=== PATIENT | female | born 1975 | race Caucasian/White ===

== ENCOUNTER 2019-10-11 15:11 | Emergency (ER) | payer OTHER ==
[2019-10-11 15:19] VITALS: TEMP 98.7
[2019-10-11 16:31] LABS: Basophils # (A) 0.1 k/uL (0-0.2); Basophils % (A) 1 %; Eosinophils # (A) 0.2 k/uL (0-0.7); Eosinophils % (A) 2 %; HCT 48.9 % (34.0-46.0); Lymphocytes # (A) 2.5 k/uL (1.0-4.8); Lymphocytes % (A) 29 %; MCH 32.9 pg (25.0-35.0); MCHC 32.6 g/dL (31.0-37.0); MCV 100.7 fL (80.0-100.0); Monocytes # (A) 0.3 k/uL (0-1.0); Monocytes % (A) 4 %; Neutrophils # (A) 5.4 k/uL (1.3-7.7); Neutrophils % (A) 62 %; Platelet Count 260 k/uL (150-450); RBC 4.86 m/uL (3.80-5.40); RDW 13.7 % (11.5-15.5); WBC 8.6 k/uL (3.8-10.6)
[2019-10-11 16:41] LABS: ALT 24 U/L (4-34); AST 21 U/L (14-36); African American GFR (CKD) >90 (>60 ml/min/1.73 sqM); Albumin 4.6 g/dL (3.5-5.0); Alkaline Phosphatase 102 U/L (38-126); Anion Gap 7 mmol/L; Blood Urea Nitrogen 13 mg/dL (7-17); Calcium 9.6 mg/dL (8.4-10.2); Carbon Dioxide 24 mmol/L (22-30); Chloride 107 mmol/L (98-107); Glucose 88 mg/dL (74-99); Magnesium 2.2 mg/dL (1.6-2.3); Non-African American GFR(CKD) >90 (>60 ml/min/1.73 sqM); Potassium 4.2 mmol/L (3.5-5.1); Sodium 138 mmol/L (137-145); Total Bilirubin 0.3 mg/dL (0.2-1.3); Total Protein 7.9 g/dL (6.3-8.2)
--- NOTE | 2019-10-11 16:44 | XR ---
EXAMINATION TYPE: XR chest 2V DATE OF EXAM: 10/11/2019 COMPARISON: 02/26/2016 HISTORY: 44 year-old female shortness of breath TECHNIQUE: PA and lateral views FINDINGS: Heart normal in size. Aorta and pulmonary vasculature are within normal limits. Some strandy atelecta sis in the lower lungs. No consolidation or pleural effusion otherwise seen. IMPRESSION: Some strandy lower lung atelectasis. Otherwise, no acute cardiopulmonary process.
[2019-10-11 16:46] LABS: D-Dimer 0.22 mg/L FEU (<0.60); INR 0.9 (<1.2); Partial Thromboplastin Time 24.9 sec (22.0-30.0); Prothrombin Time 9.9 sec (9.0-12.0)
--- NOTE | 2019-10-11 17:45 | ED ---
URI HPI - General Chief Complaint: Upper Respiratory Infection Stated Complaint: chest pain, cough Time Seen by Provider: 10/11/19 16:09 Source: patient Mode of arrival: ambulatory Limitations: no limitations - History of Present Illness Initial Comments: Patient is a 44-year-old female, with history of chronic bronchitis, every day smoker, presenting to the emergency Department with complaints of a cough and burning in her chest 3 weeks. Patient was seen by urgent care about 3 weeks ago and was given Augmentin, cough medicine. Patient states she finished this medication and symptoms were slightly better. She had a conference call with her PCP who switched her antibiotic to Levaquin. Patient states she only took 1-2 days of this and did not like the side effects, so she stopped taking it. She was then prescribed 2 inhalers to try. Patient states her symptoms have started to improve with these inhalers but she still feels short of breath and burning in her chest, and is concerned that she might have pneumonia. Patient denies any chest pains. She states that her tightness is when she coughs and she feels burning in her chest. Patient denies any fever, chills, abdominal pain, nausea, vomiting, lightheadedness. She has no other complaints at this time. Upon arrival to the ER, her vital signs are stable. - Related Data Home Medications Medication Instructions Recorded Confirmed Bismuth Subsalicylate 262 mg PO DAILY PRN 11/23/15 02/26/16 [Pepto-Bismol] Previous Rx's Medication Instructions Recorded Albuterol Inhaler (Bulk) [Ventolin 1 - 2 puff INHALATION Q4-6H PRN #1 02/26/16 Hfa Inhaler (Bulk)] inhaler Doxycycline Monohydrate [Monodox] 100 mg PO Q12HR 5 Days #10 cap 10/11/19 methylPREDNISolone [Medrol Dose 4 mg PO DIRECTED #1 pack 10/11/19 Pack] Allergies Allergy/AdvReac Type Severity Reaction Status Date / Time prednisone Allergy Swelling Verified 02/26/16 20:13 codeine AdvReac migraines Verified 02/26/16 20:13 tramadol HCl [From Ultram] AdvReac migraines Verified 02/26/16 20:13 Review of Systems ROS Statement: Those systems with pertinent positive or pertinent negative responses have been documented in the HPI. ROS Other: All systems not noted in ROS Statement are negative. Past Medical History Past Medical History: GERD/Reflux, Skin Disorder Additional Past Medical History / Comment(s): Psoriasis; endometriosis History of Any Multi-Drug Resistant Organisms: None Reported Past Surgical History: Appendectomy, Section, Hysterectomy Additional Past Surgical History / Comment(s): Surgery r/t endometriosis Additional Past Anesthesia/Blood Transfusion Reaction / Comment(s): low b/p during one surgery.no hx of blood transfusion Past Psychological History: No Psychological Hx Reported Smoking Status: Current every day smoker Past Alcohol Use History: Occasional Past Drug Use History: None Reported - Past Family History Mother Family Medical History: Hypertension Additional Family Medical History / Comment(s): brain aneurysm Father Additional Family Medical History / Comment(s): suicide General Exam - General Exam Comments Initial Comments: GENERAL: Well-appearing, well-nourished and in no acute distress. HEAD: Atraumatic, normocephalic. EYES: Pupils equal round and reactive to light, extraocular movements intact, sclera anicteric, conjunctiva are normal. ENT: TMs normal, nares patent, oropharynx clear without exudates. Moist mucous membranes. NECK: Normal range of motion, supple without lymphadenopathy or JVD. LUNGS: Breath sounds clear to auscultation bilaterally and equal. No wheezes rales or rhonchi. HEART: Regular rate and rhythm without murmurs, rubs or gallops. ABDOMEN: Soft, nontender, normoactive bowel sounds. No guarding, no rebound. No masses appreciated. : Deferred EXTREMITIES: Normal range of motion, no pitting or edema. No clubbing or cyanosis. NEUROLOGICAL: Normal speech, normal gait. PSYCH: Normal mood, normal affect. SKIN: Warm, Dry, normal turgor, no rashes or lesions noted. Limitations: no limitations Course Vital Signs 10/11/19 10/11/19 10/11/19 15:14 16:28 17:56 Temperature 98.7 F Pulse Rate 58 L 79 Respiratory 18 16 18 Rate Blood Pressure 147/93 126/79 O2 Sat by Pulse 97 100 Oximetry Medical Decision Making - Medical Decision Making Patient is a 44-year-old female with history of chronic bronchitis presenting with a cough and chest discomfort for 3 weeks. Patient was treated with Augmentin and a few days of Levaquin before she stopped taking it due to side effects. She is also currently on inhalers. Her vital signs are stable upon arrival. Her exam is unremarkable. Her chest x-ray reveals some mild atelectasis, no other abnormal findings. Her lab work is unremarkable. I discussed with patient this is most likely an exacerbation of her bronchitis. Patient states she is ALLERGIC to prednisone as well as azithromycin. Patient will be given Medrol Dosepak as well as doxycycline. She is in agreement with this plan of care. She'll continue with her already prescribed inhalers. She will follow-up with her PCP if symptoms persist. Patient is in agreement with this plan of care. Case discussed with Dr. Mandujano. - Lab Data Result diagrams: 10/11/19 16:15 10/11/19 16:15 Lab Results 10/11/19 10/11/19 10/11/19 Range/Units 16:15 16:15 16:15 WBC 8.6 (3.8-10.6) k/uL RBC 4.86 (3.80-5.40) m/uL Hgb 16.0 (11.4-16.0) gm/dL Hct 48.9 H (34.0-46.0) % MCV 100.7 H (80.0-100.0) fL MCH 32.9 (25.0-35.0) pg MCHC 32.6 (31.0-37.0) g/dL RDW 13.7 (11.5-15.5) % Plt Count 260 (150-450) k/uL Neutrophils % 62 % Lymphocytes % 29 % Monocytes % 4 % Eosinophils % 2 % Basophils % 1 % Neutrophils # 5.4 (1.3-7.7) k/uL Lymphocytes # 2.5 (1.0-4.8) k/uL Monocytes # 0.3 (0-1.0) k/uL Eosinophils # 0.2 (0-0.7) k/uL Basophils # 0.1 (0-0.2) k/uL PT 9.9 (9.0-12.0) sec INR 0.9 (<1.2) APTT 24.9 (22.0-30.0) sec D-Dimer 0.22 (<0.60) mg/L FEU Sodium 138 (137-145) mmol/L Potassium 4.2 (3.5-5.1) mmol/L Chloride 107 (98-107) mmol/L Carbon Dioxide 24 (22-30) mmol/L Anion Gap 7 mmol/L BUN 13 (7-17) mg/dL Creatinine 0.69 (0.52-1.04) mg/dL Est GFR (CKD-EPI)AfAm >90 (>60 ml/min/1.73 sqM) Est GFR (CKD-EPI)NonAf >90 (>60 ml/min/1.73 sqM) Glucose 88 (74-99) mg/dL Plasma Lactic Acid Donnell (0.7-2.0) mmol/L Calcium 9.6 (8.4-10.2) mg/dL Magnesium 2.2 (1.6-2.3) mg/dL Total Bilirubin 0.3 (0.2-1.3) mg/dL AST 21 (14-36) U/L ALT 24 (4-34) U/L Alkaline Phosphatase 102 (38-126) U/L Troponin I (0.000-0.034) ng/mL NT-Pro-B Natriuret Pep pg/mL Total Protein 7.9 (6.3-8.2) g/dL Albumin 4.6 (3.5-5.0) g/dL 10/11/19 10/11/19 10/11/19 Range/Units 16:15 16:15 16:15 WBC (3.8-10.6) k/uL RBC (3.80-5.40) m/uL Hgb (11.4-16.0) gm/dL Hct (34.0-46.0) % MCV (80.0-100.0) fL MCH (25.0-35.0) pg MCHC (31.0-37.0) g/dL RDW (11.5-15.5) % Plt Count (150-450) k/uL Neutrophils % % Lymphocytes % % Monocytes % % Eosinophils % % Basophils % % Neutrophils # (1.3-7.7) k/uL Lymphocytes # (1.0-4.8) k/uL Monocytes # (0-1.0) k/uL Eosinophils # (0-0.7) k/uL Basophils # (0-0.2) k/uL PT (9.0-12.0) sec INR (<1.2) APTT (22.0-30.0) sec D-Dimer (<0.60) mg/L FEU Sodium (137-145) mmol/L Potassium (3.5-5.1) mmol/L Chloride (98-107) mmol/L Carbon Dioxide (22-30) mmol/L Anion Gap mmol/L BUN (7-17) mg/dL Creatinine (0.52-1.04) mg/dL Est GFR (CKD-EPI)AfAm (>60 ml/min/1.73 sqM) Est GFR (CKD-EPI)NonAf (>60 ml/min/1.73 sqM) Glucose (74-99) mg/dL Plasma Lactic Acid Donnell 0.7 (0.7-2.0) mmol/L Calcium (8.4-10.2) mg/dL Magnesium (1.6-2.3) mg/dL Total Bilirubin (0.2-1.3) mg/dL AST (14-36) U/L ALT (4-34) U/L Alkaline Phosphatase (38-126) U/L Troponin I <0.012 (0.000-0.034) ng/mL NT-Pro-B Natriuret Pep 50 pg/mL Total Protein (6.3-8.2) g/dL Albumin (3.5-5.0) g/dL Disposition Clinical Impression: Chronic bronchitis with acute exacerbation Disposition: HOME SELF-CARE Condition: Stable Instructions (If sedation given, give patient instructions): Chronic Bronchitis (ED) Additional Instructions: Please return to the Emergency Department if symptoms worsen or any other concerns. Continue with already prescribed inhalers. Take antibiotic as prescribed. Take steroids as prescribed. Follow-up with PCP if symptoms persist. Prescriptions: methylPREDNISolone [Medrol Dose Pack] 4 mg PO DIRECTED #1 pack Doxycycline Monohydrate [Monodox] 100 mg PO Q12HR 5 Days #10 cap Is patient prescribed a controlled substance at d/c from ED?: No Referrals: Cem Espino MD [Primary Care Provider] - 1-2 days
[2019-10-11 17:57] VITALS: BP 126/79; PULSE 79; RESP 18
== END 2019-10-11 17:57 | disposition home or self-care (01) ==
LOC: EC 15:11
DX: J42 Unspecified chronic bronchitis (principal); J98.11 Atelectasis; F17.200 Nicotine dependence, unspecified, uncomplicated; Z79.899 Other long term (current) drug therapy; Z88.5 Allergy status to narcotic agent; Z88.8 Allergy status to other drugs, medicaments and biological substances; Z88.6 Allergy status to analgesic agent
CPT/HCPCS: 36415; 71046; 80053; 83605; 83735; 83880; 84484; 85025; 85379; 85610; 85730; 93005; 99285

== ENCOUNTER → 2019-12-06 | Outpatient (CLI) | payer OTHER ==
--- NOTE | 2019-12-06 10:57 | FL ---
EXAMINATION TYPE: FL UGI air w KUB DATE OF EXAM: 12/06/2019 COMPARISON: NONE HISTORY: 44-year-old female K21.9, gastroesophageal reflux disease without esophagitis. TECHNIQUE: A double contrast UGI study is performed. Total fluoroscopy time: 2.24 minutes Total images: 41 FINDINGS: Pr Internship image of the abdomen shows no gross abnormality. Moderate scattered stool. Lung bases are clear . No evidence for free intraperitoneal air. The esophagus shows normal motility and emptying into the stomach. No fixed narrowing are mucosal irr egularity seen. There is a tiny sliding hiatal hernia noted. Gastroesophageal reflux could not be elicited during the course of the exam. The stomach shows normal distensibility and peristalsis. There is moderate diffuse gastric fold thick ening. No evidence of any mass or ulcer disease. The duodenal bulb and sweep appear unremarkable. IMPRESSION: 1. Tiny sliding hiatal hernia. Gastroesophageal reflux could not be elicited during the course of the exam. However, note that this does not exclude its possibility in this patient. 2. Moderate diffuse gastric fold thickening suggests chronic gastritis. Direct visualization if indic ated which could also assess the esophagus for any secondary changes relating to long-standing gastro esophageal reflux disease.
== END | disposition home or self-care (01) ==
LOC: RADUSWWP 09:42
PROVIDERS: ATTEND Family Medicine
DX: K44.9 Diaphragmatic hernia without obstruction or gangrene (principal); K31.89 Other diseases of stomach and duodenum
CPT/HCPCS: 74246

== ENCOUNTER 2020-01-14 08:40 | Day surgery (SDC) | payer OTHER ==
[2020-01-12 10:41] VITALS: BMI 28.3
[~2020-01-14 08:40] MED LIST: LACTATED RINGERS 1,000 ML IV SCH
[2020-01-14 08:57] VITALS: RESP 18; TEMP 97.8
[2020-01-14] MEDS ORDERED: LACTATED RINGERS 1,000 ML IV ONE (09:09)
[2020-01-14] MEDS ORDERED: SODIUM CHLORIDE 0.9% 1,000 ML IV ONE (09:09)
[2020-01-14] MEDS ORDERED: LIDOCAINE 1% (10MG/ML) FOR IV START INTRADERMA ONE (09:10)
[2020-01-14] MEDS ORDERED: PROPOFOL 10 MG/ML 20 ML VIAL IV ONE (09:44)
[2020-01-14] MEDS ORDERED: LIDOCAINE 1% INJ 10MG/ML (20 ML MDV) ONE (09:44)
--- NOTE | 2020-01-14 09:55 | P.PCN ---
Date of Procedure: 01/14/20 Procedure(s) Performed: BRIEF HISTORY: Patient is a 24-year-old, pleasant,-year-old female scheduled for an upper endoscopy for evaluation of severe heartburn and epigastric pain for the last several months duration. She has long-standing history of GERD for more than 10 years duration and presently on Protonix 40 mg daily PROCEDURE PERFORMED: Esophagogastroduodenoscopy with biopsy PREOPERATIVE DIAGNOSIS: Long-standing history of GERD with worsening symptoms. IV sedation per anesthesia. PROCEDURE: After informed consent was obtained, the patient was brought into the endoscopy unit. IV sedation was administered by Anesthesia under continuous monitoring. Initially the Olympus GIF-140 video endoscope was inserted into the mouth. Esophagus intubated without any difficulty. It was gradually advanced into the stomach and duodenum and carefully examined. The bulb and the second part of the duodenum appeared normal. The scope at this time was withdrawn to the stomach, adequately insufflated with air, and upon careful examination, mucosa of the antrum, body, cardia and the fundus appeared normal. The scope was then withdrawn into the esophagus. The GE junction was located at 35 cm from the incisors. Small sliding type hiatal hernia noted. There were linear erosions and ulceration at the GE junction consistent with LA grade C reflux esophagitis. There were 2 small islands of Hill's appearing mucosa measuring about 2 mm in size just proximal to the GE junction which were biopsied. The rest of the esophagus appeared jennifer and the patient tolerated the procedure well. IMPRESSION: 1. Linear erosions about superficial ulceration at the GE junction consistent with LA grade C reflux esophagitis. 2. Small hiatal hernia and 2 small islands of Hill's-appearing mucosa status post biopsy 3 Minimal antral gastritis RECOMMENDATIONS: The findings of this examination were discussed with the patient as well as her family. She was advised to follow with the biopsy results. She will increase the Protonix to 40 mg twice daily and follow antireflux. She'll be seen in office in 6 weeks.
[2020-01-14 10:24] VITALS: BP 123/80; PULSE 65
== END 2020-01-14 10:43 | disposition home or self-care (01) ==
LOC: ORWHC2ENDO 08:40
PROVIDERS: ATTEND Internal Medicine Gastroenterology
DX: K29.50 Unspecified chronic gastritis without bleeding (principal); K44.9 Diaphragmatic hernia without obstruction or gangrene; K22.70 Barrett's esophagus without dysplasia; K21.0 Gastro-esophageal reflux disease with esophagitis; E78.5 Hyperlipidemia, unspecified; J45.909 Unspecified asthma, uncomplicated; F17.210 Nicotine dependence, cigarettes, uncomplicated; Z88.5 Allergy status to narcotic agent; Z88.8 Allergy status to other drugs, medicaments and biological substances; Z79.899 Other long term (current) drug therapy; Z90.49 Acquired absence of other specified parts of digestive tract; Z90.710 Acquired absence of both cervix and uterus
CPT/HCPCS: 88305; 43239; J2001; J2704

== ENCOUNTER → 2020-02-23 | Outpatient (CLI) | payer OTHER ==
[2020-02-23 14:35] LABS: Basophils % (A) 0 %; Eosinophils # (A) 0.1 k/uL (0-0.7); Eosinophils % (A) 0 %; HCT 50.2 % (34.0-46.0); HGB 15.8 gm/dL (11.4-16.0); Lymphocytes % (A) 17 %; MCHC 31.5 g/dL (31.0-37.0); MCV 101.7 fL (80.0-100.0); Macrocytosis Slight; Mean Platelet Volume 6.7; Monocytes # (A) 0.6 k/uL (0-1.0); Monocytes % (A) 3 %; Neutrophils # (A) 14.4 k/uL (1.3-7.7); Neutrophils % (A) 79 %; Platelet Count 304 k/uL (150-450); RBC 4.93 m/uL (3.80-5.40); RDW 13.6 % (11.5-15.5); WBC 18.3 k/uL (3.8-10.6)
[2020-02-23 19:23] LABS: African American GFR (CKD) 102.5 (60.0-200.0); Non-African American GFR(CKD) 88.4 (60.0-200.0)
[2020-02-23 20:32] LABS: Hepatitis B Surface AB- Quant 3.5 mIU/mL; Hepatitis B Surface Antibody Non-Reactive (Non-Reactive); Hepatitis B Surface Antigen Non-Reactive (Non-Reactive)
== END | disposition home or self-care (01) ==
LOC: LABWHC1 11:53
PROVIDERS: ATTEND Dermatology
DX: L40.0 Psoriasis vulgaris (principal); D22.39 Melanocytic nevi of other parts of face
CPT/HCPCS: 36415; 82565; 84450; 84460; 85025; 86480; 86706; 87340

== ENCOUNTER → 2020-03-30 | Outpatient (CLI) | payer OTHER ==
[2020-03-30 12:04] LABS: Basophils # (A) 0.1 k/uL (0-0.2); Basophils % (A) 0 %; Eosinophils # (A) 0.1 k/uL (0-0.7); Eosinophils % (A) 1 %; HCT 52.2 % (34.0-46.0); HGB 16.8 gm/dL (11.4-16.0); Lymphocytes # (A) 2.5 k/uL (1.0-4.8); Lymphocytes % (A) 20 %; MCH 33.5 pg (25.0-35.0); MCHC 32.2 g/dL (31.0-37.0); MCV 104.1 fL (80.0-100.0); Macrocytosis Slight; Mean Platelet Volume 6.7; Monocytes # (A) 0.5 k/uL (0-1.0); Monocytes % (A) 4 %; Neutrophils # (A) 8.8 k/uL (1.3-7.7); Neutrophils % (A) 73 %; Platelet Count 279 k/uL (150-450); RBC 5.01 m/uL (3.80-5.40); RDW 13.7 % (11.5-15.5); WBC 12.1 k/uL (3.8-10.6)
== END | disposition home or self-care (01) ==
LOC: LABWHC1 11:01
PROVIDERS: ATTEND Dermatology
DX: L40.0 Psoriasis vulgaris (principal)
CPT/HCPCS: 36415; 85025

== ENCOUNTER → 2020-04-13 | Outpatient (CLI) | payer OTHER ==
[2020-04-13 16:45] LABS: Basophils % (A) 0 %; Eosinophils # (A) 0.2 k/uL (0-0.7); Eosinophils % (A) 2 %; HCT 50.1 % (34.0-46.0); HGB 16.3 gm/dL (11.4-16.0); Lymphocytes # (A) 2.5 k/uL (1.0-4.8); Lymphocytes % (A) 24 %; MCH 33.8 pg (25.0-35.0); MCHC 32.5 g/dL (31.0-37.0); MCV 104.3 fL (80.0-100.0); Macrocytosis Slight; Mean Platelet Volume 6.7; Monocytes # (A) 0.5 k/uL (0-1.0); Monocytes % (A) 5 %; Neutrophils # (A) 7.2 k/uL (1.3-7.7); Neutrophils % (A) 69 %; Platelet Count 269 k/uL (150-450); RBC 4.81 m/uL (3.80-5.40); RDW 13.4 % (11.5-15.5); WBC 10.5 k/uL (3.8-10.6)
== END | disposition home or self-care (01) ==
LOC: LABWHC1 15:10
PROVIDERS: ATTEND Dermatology
DX: L40.0 Psoriasis vulgaris (principal)
CPT/HCPCS: 36415; 85025

== ENCOUNTER → 2020-05-02 | Outpatient (CLI) | payer OTHER ==
[2020-05-02 15:04] LABS: Basophils # (A) 0.1 k/uL (0-0.2); Basophils % (A) 0 %; Eosinophils # (A) 0.1 k/uL (0-0.7); Eosinophils % (A) 1 %; HCT 50.2 % (34.0-46.0); Lymphocytes # (A) 3.3 k/uL (1.0-4.8); Lymphocytes % (A) 30 %; MCH 32.3 pg (25.0-35.0); MCHC 31.8 g/dL (31.0-37.0); MCV 101.6 fL (80.0-100.0); Macrocytosis Slight; Monocytes # (A) 0.4 k/uL (0-1.0); Monocytes % (A) 4 %; Neutrophils # (A) 6.9 k/uL (1.3-7.7); Neutrophils % (A) 63 %; Platelet Count 260 k/uL (150-450); RBC 4.95 m/uL (3.80-5.40); RDW 13.3 % (11.5-15.5)
== END | disposition home or self-care (01) ==
LOC: LABWHC1 13:33
PROVIDERS: ATTEND Dermatology
DX: L40.0 Psoriasis vulgaris (principal)
CPT/HCPCS: 36415; 85025

== ENCOUNTER → 2020-07-07 | Outpatient (CLI) | payer OTHER ==
[2020-07-07 13:30] LABS: Basophils # (A) 0.1 k/uL (0-0.2); Basophils % (A) 1 %; Eosinophils # (A) 0.1 k/uL (0-0.7); Eosinophils % (A) 1 %; HCT 49.1 % (34.0-46.0); HGB 16.4 gm/dL (11.4-16.0); Lymphocytes # (A) 2.9 k/uL (1.0-4.8); Lymphocytes % (A) 23 %; MCH 33.3 pg (25.0-35.0); MCHC 33.4 g/dL (31.0-37.0); MCV 99.9 fL (80.0-100.0); Mean Platelet Volume 6.8; Monocytes # (A) 0.5 k/uL (0-1.0); Monocytes % (A) 4 %; Neutrophils # (A) 9.1 k/uL (1.3-7.7); Neutrophils % (A) 71 %; Platelet Count 239 k/uL (150-450); RBC 4.91 m/uL (3.80-5.40); RDW 13.5 % (11.5-15.5); WBC 12.9 k/uL (3.8-10.6)
== END | disposition home or self-care (01) ==
LOC: LABWHC1 12:34
PROVIDERS: ATTEND Dermatology
DX: L40.0 Psoriasis vulgaris (principal)
CPT/HCPCS: 36415; 85025

== ENCOUNTER → 2020-07-10 | Outpatient (CLI) | payer OTHER ==
[2020-07-10 19:14] LABS: African American GFR (CKD) 101.8 (60.0-200.0); Non-African American GFR(CKD) 87.8 (60.0-200.0)
== END | disposition home or self-care (01) ==
LOC: LABWHC1 11:27
PROVIDERS: ATTEND Dermatology
DX: L40.0 Psoriasis vulgaris (principal)
CPT/HCPCS: 36415; 82565; 84450; 84460

== ENCOUNTER 2020-07-25 18:44 | Emergency (ER) | payer OTHER ==
[2020-07-25 18:49] VITALS: TEMP 98.8
--- NOTE | 2020-07-25 19:10 | ED ---
General Adult HPI - General Chief complaint: Shortness of Breath Stated complaint: SOB Time Seen by Provider: 07/25/20 18:45 Source: patient, RN notes reviewed, old records reviewed Mode of arrival: ambulatory Limitations: no limitations - History of Present Illness Initial comments: This is a 45-year-old female who presents emergency department with past history significant for asthma. Patient also states she continues to smoke. Patient states ever since she had an illness in August which she believes may have been: She has had some on-and-off episodes difficulty breathing. Patient states she also thinks he may be related to wearing a mask because she states she does feel like she is suffocating. Patient states today she had a couple episodes where she became very fatigued and had a sit down at work. Patient states she's had no fever chills or cough. Patient however states that she has had some chest pain with deep inspiration. Patient states if she remains still there is no pain. Patient denies any leg swelling or calf tenderness. Patient denies abdominal pain patient denies nausea vomiting diarrhea - Related Data Home Medications Medication Instructions Recorded Confirmed Atorvastatin [Lipitor] 40 mg PO DAILY 01/12/20 01/12/20 Mometasone Furoate [Asmanex Hfa] 1 puff INHALATION DAILY 01/12/20 01/12/20 Pantoprazole Sodium [Protonix] 40 mg PO DAILY 01/12/20 01/12/20 Previous Rx's Medication Instructions Recorded Albuterol Inhaler (Mhu) [Ventolin 1 - 2 puff INHALATION Q4-6H PRN #1 02/26/16 Hfa Inhaler (Mhu)] inhaler predniSONE [Deltasone] 40 mg PO DAILY #8 tab 07/25/20 Allergies Allergy/AdvReac Type Severity Reaction Status Date / Time diphenhydramine Allergy Chest Pain Verified 07/25/20 18:49 [From Benadryl] codeine AdvReac migraines Verified 07/25/20 18:49 tramadol HCl [From Ultram] AdvReac migraines Verified 07/25/20 18:49 lactated ringers Allergy Anaphylaxis Uncoded 07/25/20 18:49 Review of Systems ROS Statement: Those systems with pertinent positive or pertinent negative responses have been documented in the HPI. ROS Other: All systems not noted in ROS Statement are negative. Past Medical History Past Medical History: GERD/Reflux, Hyperlipidemia, Skin Disorder Additional Past Medical History / Comment(s): Psoriasis; endometriosis, CHRONIC BRONCHITIS History of Any Multi-Drug Resistant Organisms: None Reported Past Surgical History: Appendectomy, Section, Hysterectomy Additional Past Surgical History / Comment(s): MOLES REMOVED FROM BY EYE WITH ANESTHESIA Past Anesthesia/Blood Transfusion Reactions: No Reported Reaction Additional Past Anesthesia/Blood Transfusion Reaction / Comment(s): low b/p dur ing one surgery.no hx of blood transfusion Past Psychological History: No Psychological Hx Reported Smoking Status: Current every day smoker Past Alcohol Use History: None Reported Past Drug Use History: None Reported - Past Family History Mother Family Medical History: Hypertension Additional Family Medical History / Comment(s): brain aneurysm Father Additional Family Medical History / Comment(s): suicide General Exam - General Exam Comments Initial Comments: GENERAL: Patient is well-developed and well-nourished. Patient is nontoxic and well- hydrated and is in mild distress. ENT: Neck is soft and supple. No significant lymphadenopathy is noted. Oropharynx is clear. Moist mucous membranes. Neck has full range of motion without eliciting any pain. EYES: The sclera were anicteric and conjunctiva were pink and moist. Extraocular movements were intact and pupils were equal round and reactive to light. Eyelids were unremarkable. PULMONARY: Unlabored respirations. Good breath sounds bilaterally. No audible rales rhonchi or wheezing was noted. No wheezing at this time per the patient states she just did her inhaler prior to coming and CARDIOVASCULAR: There is a regular rate and rhythm without any murmurs gallops or rubs. ABDOMEN: Soft and nontender with normal bowel sounds. SKIN: Skin is clear with no lesions or rashes and otherwise unremarkable. NEUROLOGIC: Patient is alert and oriented x3. Cranial nerves II through XII are grossly intact. Motor and sensory are also intact. Normal speech, volume and content. Symmetrical smile. MUSCULOSKELETAL: Normal extremities with adequate strength and full range of motion. No lower extremity swelling or edema. No calf tenderness. LYMPHATICS: No significant lymphadenopathy is noted PSYCHIATRIC: Normal psychiatric evaluation. Limitations: no limitations Course Vital Signs 07/25/20 18:46 Temperature 98.8 F Pulse Rate 97 Respiratory 22 Rate Blood Pressure 170/85 O2 Sat by Pulse 97 Oximetry Medical Decision Making - Medical Decision Making EKG shows normal sinus rhythm at 86 bpm AL interval is 144 QRS is 60 QT interval 364 QTC is 435 per patient's EKG shows no ST segment elevation or depression Patient states she took a breathing treatment just prior to arrival. And since then she's been feeling considerably better. I gave the patient 125 mg of Solu-Medrol. Patient will follow-up with primary medical care doctor. Chest x-ray shows no acute abnormality. - Lab Data Result diagrams: 07/25/20 19:20 07/25/20 19:20 Lab Results 07/25/20 07/25/20 07/25/20 Range/Units 19:20 19:20 19:20 WBC 18.0 H (3.8-10.6) k/uL RBC 4.67 (3.80-5.40) m/uL Hgb 15.2 (11.4-16.0) gm/dL Hct 46.7 H (34.0-46.0) % MCV 100.1 H (80.0-100.0) fL MCH 32.6 (25.0-35.0) pg MCHC 32.6 (31.0-37.0) g/dL RDW 13.8 (11.5-15.5) % Plt Count 257 (150-450) k/uL MPV 6.7 Neutrophils % 71 % Lymphocytes % 24 % Monocytes % 4 % Eosinophils % 1 % Basophils % 0 % Neutrophils # 12.7 H (1.3-7.7) k/uL Lymphocytes # 4.2 (1.0-4.8) k/uL Monocytes # 0.7 (0-1.0) k/uL Eosinophils # 0.1 (0-0.7) k/uL Basophils # 0.1 (0-0.2) k/uL PT 10.0 (9.0-12.0) sec INR 0.9 (<1.2) APTT 23.1 (22.0-30.0) sec D-Dimer 0.19 (<0.60) mg/L FEU Sodium 139 (137-145) mmol/L Potassium 3.9 (3.5-5.1) mmol/L Chloride 105 (98-107) mmol/L Carbon Dioxide 26 (22-30) mmol/L Anion Gap 8 mmol/L BUN 15 (7-17) mg/dL Creatinine 0.68 (0.52-1.04) mg/dL Est GFR (CKD-EPI)AfAm >90 (>60 ml/min/1.73 sqM) Est GFR (CKD-EPI)NonAf >90 (>60 ml/min/1.73 sqM) Glucose 100 H (74-99) mg/dL Plasma Lactic Acid Donnell (0.7-2.0) mmol/L Calcium 9.8 (8.4-10.2) mg/dL Total Bilirubin 0.5 (0.2-1.3) mg/dL AST 20 (14-36) U/L ALT 24 (4-34) U/L Alkaline Phosphatase 77 (38-126) U/L Troponin I (0.000-0.034) ng/mL Total Protein 7.2 (6.3-8.2) g/dL Albumin 4.3 (3.5-5.0) g/dL 07/25/20 07/25/20 Range/Units 19:20 19:20 WBC (3.8-10.6) k/uL RBC (3.80-5.40) m/uL Hgb (11.4-16.0) gm/dL Hct (34.0-46.0) % MCV (80.0-100.0) fL MCH (25.0-35.0) pg MCHC (31.0-37.0) g/dL RDW (11.5-15.5) % Plt Count (150-450) k/uL MPV Neutrophils % % Lymphocytes % % Monocytes % % Eosinophils % % Basophils % % Neutrophils # (1.3-7.7) k/uL Lymphocytes # (1.0-4.8) k/uL Monocytes # (0-1.0) k/uL Eosinophils # (0-0.7) k/uL Basophils # (0-0.2) k/uL PT (9.0-12.0) sec INR (<1.2) APTT (22.0-30.0) sec D-Dimer (<0.60) mg/L FEU Sodium (137-145) mmol/L Potassium (3.5-5.1) mmol/L Chloride (98-107) mmol/L Carbon Dioxide (22-30) mmol/L Anion Gap mmol/L BUN (7-17) mg/dL Creatinine (0.52-1.04) mg/dL Est GFR (CKD-EPI)AfAm (>60 ml/min/1.73 sqM) Est GFR (CKD-EPI)NonAf (>60 ml/min/1.73 sqM) Glucose (74-99) mg/dL Plasma Lactic Acid Donnell 0.9 (0.7-2.0) mmol/L Calcium (8.4-10.2) mg/dL Total Bilirubin (0.2-1.3) mg/dL AST (14-36) U/L ALT (4-34) U/L Alkaline Phosphatase (38-126) U/L Troponin I <0.012 (0.000-0.034) ng/mL Total Protein (6.3-8.2) g/dL Albumin (3.5-5.0) g/dL Disposition Clinical Impression: Asthma exacerbation Disposition: HOME SELF-CARE Instructions (If sedation given, give patient instructions): Asthma (ED) Prescriptions: predniSONE [Deltasone] 40 mg PO DAILY #8 tab Is patient prescribed a controlled substance at d/c from ED?: No Referrals: Cem Espino MD [Primary Care Provider] - 1-2 days
[2020-07-25 19:26] LABS: Basophils # (A) 0.1 k/uL (0-0.2); Basophils % (A) 0 %; Eosinophils # (A) 0.1 k/uL (0-0.7); Eosinophils % (A) 1 %; HCT 46.7 % (34.0-46.0); HGB 15.2 gm/dL (11.4-16.0); Lymphocytes # (A) 4.2 k/uL (1.0-4.8); Lymphocytes % (A) 24 %; MCH 32.6 pg (25.0-35.0); MCHC 32.6 g/dL (31.0-37.0); MCV 100.1 fL (80.0-100.0); Mean Platelet Volume 6.7; Monocytes # (A) 0.7 k/uL (0-1.0); Monocytes % (A) 4 %; Neutrophils # (A) 12.7 k/uL (1.3-7.7); Neutrophils % (A) 71 %; Platelet Count 257 k/uL (150-450); RBC 4.67 m/uL (3.80-5.40); RDW 13.8 % (11.5-15.5)
--- NOTE | 2020-07-25 19:33 | XR ---
EXAMINATION TYPE: XR chest 2V DATE OF EXAM: 07/25/2020 COMPARISON: NONE HISTORY: Chest pain Heart and mediastinum are normal. Lungs are clear. Diaphragm is normal. Bony thorax appears normal. IMPRESSION: Normal chest. No change.
[2020-07-25 19:37] LABS: ALT 24 U/L (4-34); AST 20 U/L (14-36); African American GFR (CKD) >90 (>60 ml/min/1.73 sqM); Albumin 4.3 g/dL (3.5-5.0); Alkaline Phosphatase 77 U/L (38-126); Anion Gap 8 mmol/L; Blood Urea Nitrogen 15 mg/dL (7-17); Calcium 9.8 mg/dL (8.4-10.2); Carbon Dioxide 26 mmol/L (22-30); Chloride 105 mmol/L (98-107); Glucose 100 mg/dL (74-99); Non-African American GFR(CKD) >90 (>60 ml/min/1.73 sqM); Potassium 3.9 mmol/L (3.5-5.1); Sodium 139 mmol/L (137-145); Total Bilirubin 0.5 mg/dL (0.2-1.3); Total Protein 7.2 g/dL (6.3-8.2)
[2020-07-25 19:39] LABS: D-Dimer 0.19 mg/L FEU (<0.60); INR 0.9 (<1.2); Partial Thromboplastin Time 23.1 sec (22.0-30.0)
[2020-07-25] MEDS ORDERED: methylPREDNISolone SOD SUCCI 125 MG/2 ML VIAL IV STA (20:18)
[2020-07-25 20:28] VITALS: BP 132/91; PULSE 72; RESP 18
== END 2020-07-25 20:38 | disposition home or self-care (01) ==
LOC: EC 18:44
DX: J45.901 Unspecified asthma with (acute) exacerbation (principal); K21.9 Gastro-esophageal reflux disease without esophagitis; E78.5 Hyperlipidemia, unspecified; F17.200 Nicotine dependence, unspecified, uncomplicated; Z79.899 Other long term (current) drug therapy; Z88.5 Allergy status to narcotic agent; Z88.8 Allergy status to other drugs, medicaments and biological substances
CPT/HCPCS: 36415; 93005; 85379; 80053; 83605; 84484; 85025; 85610; 85730; 71046; 99285; 96374; J2930

== ENCOUNTER → 2020-10-30 | Outpatient (CLI) | payer OTHER ==
[2020-10-30 19:34] LABS: Basophils # (A) 0.06 X 10*3/uL (0.00-0.10); Basophils % (A) 0.5 %; Eosinophils # (A) 0.14 X 10*3/uL (0.04-0.35); Eosinophils % (A) 1.2 %; HCT 47.3 % (37.2-46.3); HGB 15.2 g/dL (12.0-15.0); Lymphocytes # (A) 2.95 X 10*3/uL (0.90-5.00); Lymphocytes % (A) 25.4 %; MCH 32.6 pg (27.0-32.0); MCHC 32.1 g/dL (32.0-37.0); MCV 101.5 fL (80.0-97.0); Mean Platelet Volume 9.5 fL (9.5-12.2); Monocytes # (A) 0.67 X 10*3/uL (0.20-1.00); Monocytes % (A) 5.8 %; Neutrophils # (A) 7.76 X 10*3/uL (1.80-7.70); Neutrophils % (A) 66.7 %; Platelet Count 296 X 10*3/uL (140-440); RBC 4.66 X 10*6/uL (4.10-5.20); RDW 13.2 % (11.5-14.5); WBC 11.63 X 10*3/uL (4.50-10.00)
[2020-10-30 21:01] LABS: African American GFR (CKD) 101.8 (60.0-200.0); Non-African American GFR(CKD) 87.8 (60.0-200.0)
== END | disposition home or self-care (01) ==
LOC: LABWHC1 11:24
PROVIDERS: ATTEND Dermatology
DX: L40.0 Psoriasis vulgaris (principal)
CPT/HCPCS: 36415; 82565; 84450; 84460; 85025

== ENCOUNTER 2020-12-18 14:32 | Emergency (ER) | payer OTHER ==
[2020-12-18 14:55] VITALS: BP 142/104; PULSE 16; RESP 86; TEMP 98.4
[2020-12-18 15:23] LABS: ALT 16 U/L (4-34); AST 22 U/L (14-36); African American GFR (CKD) >90 (>60 ml/min/1.73 sqM); Albumin 4.2 g/dL (3.5-5.0); Alkaline Phosphatase 103 U/L (38-126); Anion Gap 7 mmol/L; Blood Urea Nitrogen 14 mg/dL (7-17); Calcium 9.4 mg/dL (8.4-10.2); Carbon Dioxide 25 mmol/L (22-30); Chloride 108 mmol/L (98-107); Glucose 96 mg/dL (74-99); INR 0.9 (<1.2); Non-African American GFR(CKD) >90 (>60 ml/min/1.73 sqM); Partial Thromboplastin Time 23.3 sec (22.0-30.0); Potassium 4.1 mmol/L (3.5-5.1); Prothrombin Time 10.1 sec (9.0-12.0); Sodium 140 mmol/L (137-145); Total Bilirubin 0.4 mg/dL (0.2-1.3); Total Protein 6.9 g/dL (6.3-8.2)
[2020-12-18 15:54] LABS: Basophils % (A) 0 %; Eosinophils # (A) 0.1 k/uL (0-0.7); Eosinophils % (A) 1 %; HCT 44.8 % (34.0-46.0); HGB 15.4 gm/dL (11.4-16.0); Lymphocytes # (A) 3.3 k/uL (1.0-4.8); Lymphocytes % (A) 33 %; MCH 33.7 pg (25.0-35.0); MCHC 34.5 g/dL (31.0-37.0); MCV 97.8 fL (80.0-100.0); Mean Platelet Volume 7.3; Monocytes # (A) 0.4 k/uL (0-1.0); Monocytes % (A) 4 %; Neutrophils # (A) 6.1 k/uL (1.3-7.7); Neutrophils % (A) 60 %; Platelet Count 240 k/uL (150-450); RBC 4.58 m/uL (3.80-5.40); RDW 13.2 % (11.5-15.5); WBC 10.1 k/uL (3.8-10.6)
--- NOTE | 2020-12-18 16:23 | XR ---
EXAMINATION TYPE: XR chest 2V DATE OF EXAM: 12/18/2020 COMPARISON: 07/25/2020 HISTORY: 45-year-old female with chest pain TECHNIQUE: PA and lateral views FINDINGS: The cardiomediastinal silhouette, aorta, and pulmonary vasculature are within normal limits. There is a focal patchy density in the left lower lung, new from prior. No other consolidation or pleural eff usion. IMPRESSION: Some new patchy density at the left lower lung is new and could represent either atelectasis or early pneumonia. Further clinical correlation will be needed.
--- NOTE | 2020-12-18 17:33 | ED ---
Chest Pain HPI - General Chief Complaint: Chest Pain Stated Complaint: chest & neck Pain,Dizziness Time Seen by Provider: 12/18/20 17:21 Source: patient, RN notes reviewed Mode of arrival: ambulatory Limitations: no limitations - History of Present Illness Initial Comments: 45-year-old white female patient, presents to the emergency room [facility] with complaints of left-sided chest pain that started today around 2:00. Patient states that she did have an episode yesterday as well but it did not last very long. Patient also states that she has a nonproductive cough but has a history of chronic bronchitis. Patient states that she became anxious and was concerned about the chest pain is why she came to the emergency room today. She does have a history of reflux, hypercholesterolemia, chronic bronchitis. She is a pack-a-day smoker for the past 25 years. She has no family history of early cardiac disease. Her mother had a brain aneurysm at her age and , father of suicide. She is estranged from her siblings but does not believe they have any cardiac problems MD Complaint: chest pain -: days(s) (1) Onset: during rest Pain Location: left chest Pain Radiation: neck Severity scale (1-10): 3 Consistency: intermittent Improves With: nothing Other Symptoms: cough, other (Dizziness) Treatments Prior to Arrival: none - Related Data Home Medications Medication Instructions Recorded Confirmed Atorvastatin [Lipitor] 40 mg PO DAILY 01/12/20 01/12/20 Mometasone Furoate [Asmanex Hfa] 1 puff INHALATION DAILY 01/12/20 01/12/20 Pantoprazole Sodium [Protonix] 40 mg PO DAILY 01/12/20 01/12/20 Previous Rx's Medication Instructions Recorded Albuterol Inhaler (Mhu) [Ventolin 1 - 2 puff INHALATION Q4-6H PRN #1 02/26/16 Hfa Inhaler (Mhu)] inhaler predniSONE [Deltasone] 40 mg PO DAILY #8 tab 07/25/20 Azithromycin [Zithromax Z-pack (6 0 mg PO DIRECTED #1 pack 12/18/20 tabs)] predniSONE 50 mg PO DAILY #5 tab 12/18/20 Allergies Allergy/AdvReac Type Severity Reaction Status Date / Time diphenhydramine Allergy Chest Pain Verified 12/18/20 14:52 [From Benadryl] codeine AdvReac migraines Verified 12/18/20 14:52 tramadol HCl [From Ultram] AdvReac migraines Verified 12/18/20 14:52 lactated ringers Allergy Anaphylaxis Uncoded 12/18/20 14:52 Review of Systems ROS Statement: Those systems with pertinent positive or pertinent negative responses have been documented in the HPI. ROS Other: All systems not noted in ROS Statement are negative. EKG Findings - EKG Results: EKG: sinus rhythm (Ventricular rate of 78, MD interval 0.138, QRS of 0.70, QTC of 0.453; sinus rhythm) Past Medical History Past Medical History: GERD/Reflux, Hyperlipidemia, Skin Disorder Additional Past Medical History / Comment(s): Psoriasis; endometriosis, CHRONIC BRONCHITIS History of Any Multi-Drug Resistant Organisms: None Reported Past Surgical History: Appendectomy, Section, Hysterectomy Additional Past Surgical History / Comment(s): MOLES REMOVED FROM BY EYE WITH ANESTHESIA Past Anesthesia/Blood Transfusion Reactions: No Reported Reaction Additional Past Anesthesia/Blood Transfusion Reaction / Comment(s): low b/p during one surgery.no hx of blood transfusion Past Psychological History: No Psychological Hx Reported Smoking Status: Current every day smoker Past Alcohol Use History: None Reported Past Drug Use History: None Reported - Past Family History Mother Family Medical History: Hypertension Additional Family Medical History / Comment(s): brain aneurysm Father Additional Family Medical History / Comment(s): suicide General Exam Limitations: no limitations General appearance: alert, in no apparent distress Head exam: Present: atraumatic, normocephalic, normal inspection Eye exam: Present: normal appearance, PERRL, EOMI. Absent: scleral icterus, conjunctival injection, periorbital swelling Pupils: Present: normal accommodation ENT exam: Present: normal exam, normal oropharynx, mucous membranes moist Neck exam: Present: normal inspection, full ROM. Absent: tenderness, meningismus, lymphadenopathy, thyromegaly Respiratory exam: Present: normal lung sounds bilaterally. Absent: respiratory distress, wheezes, rales, rhonchi, stridor, chest wall tenderness, accessory mus tameka use, decreased breath sounds, prolonged expiratory Cardiovascular Exam: Present: regular rate, normal rhythm, normal heart sounds. Absent: systolic murmur, diastolic murmur, rubs, gallop, clicks GI/Abdominal exam: Present: soft, normal bowel sounds. Absent: distended, tenderness, guarding, rebound, rigid Extremities exam: Present: normal inspection, full ROM, normal capillary refill. Absent: tenderness, pedal edema, joint swelling, calf tenderness Back exam: Present: normal inspection, full ROM. Absent: tenderness, CVA tenderness (R), CVA tenderness (L), muscle spasm, paraspinal tenderness, vertebral tenderness Neurological exam: Present: alert, oriented X3, CN II-XII intact Psychiatric exam: Present: normal affect, normal mood Skin exam: Present: warm, dry, intact, normal color. Absent: rash, cyanosis, d iaphoretic, erythema, petechiae, pallor, mottled Course Vital Signs 12/18/20 14:52 Temperature 98.4 F Pulse Rate 16 L Respiratory 86 H Rate Blood Pressure 142/104 O2 Sat by Pulse 100 Oximetry Chest Pain MDM - [facility] Chest x-ray shows a left lower lobe pneumonia, WBC count of 10, hemoglobin and hematocrit is 15 and 44 and troponin is negative rate patient is afebrile at 98 4, respiratory rate is 16 and heart rate is 86 satting 100% on room air. EKG shows no ST elevation. Patient has a heart score of 2 for risk factors of smoking and hypercholesterolemia. Patient describes the chest pain as tight in the left upper chest and worse with cough. She states that she can push and feel the pain which makes it worse with palpation. Case discussed with Dr. Jackman. Patient sees Dr. Espino states can follow up this week for reevaluation, given strict parameters to return to the emergency room with increasing chest pain, any shortness of breath is worsening, fevers or nausea and vomiting. Patient is a pack-a-day smoker directed to decrease her smoking. Disposition Clinical Impression: Pneumonia Disposition: HOME SELF-CARE Condition: Fair Instructions (If sedation given, give patient instructions): Costochondritis (ED), Pneumonia (ED) Additional Instructions: Take medication as prescribed and follow-up with Dr. Espino this week. Return to the emergency room if increasing pain, increasing shortness of breath, worsening symptoms or fever. Stop smoking Prescriptions: predniSONE 50 mg PO DAILY #5 tab Azithromycin [Zithromax Z-pack (6 tabs)] 0 mg PO DIRECTED #1 pack Is patient prescribed a controlled substance at d/c from ED?: No Referrals: Cem Espino MD [Primary Care Provider] - 1-2 days Time of Disposition: 17:49
== END 2020-12-18 18:00 | disposition home or self-care (01) ==
LOC: EC 14:32
DX: J18.9 Pneumonia, unspecified organism (principal); M54.2 Cervicalgia; R42 Dizziness and giddiness; E78.5 Hyperlipidemia, unspecified; K21.9 Gastro-esophageal reflux disease without esophagitis; F17.210 Nicotine dependence, cigarettes, uncomplicated; Z79.51 Long term (current) use of inhaled steroids; Z79.52 Long term (current) use of systemic steroids; Z88.5 Allergy status to narcotic agent; Z88.8 Allergy status to other drugs, medicaments and biological substances
CPT/HCPCS: 36415; 71046; 80053; 84484; 85025; 85610; 85730; 93005; 99285

== ENCOUNTER 2021-02-07 09:01 | Day surgery (SDC) | payer OTHER ==
[2021-02-05 11:39] VITALS: BMI 31.1
[~2021-02-07 09:01] MED LIST changes: +LIDOCAINE 1% (10MG/ML) FOR IV START INTRADERMA PRN
[2021-02-07 10:03] VITALS: RESP 16; TEMP 96.7
[2021-02-07] MEDS ORDERED: SODIUM CHLORIDE 0.9% 1,000 ML IV ONE (10:03)
[2021-02-07 10:18] LABS: Glucose,Whole Blood 86 mg/dL (75-99)
[2021-02-07] MEDS ORDERED: PROPOFOL 10 MG/ML 20 ML VIAL IV ONE (10:43)
--- NOTE | 2021-02-07 10:54 | P.PCN ---
Date of Procedure: 02/07/21 Procedure(s) Performed: BRIEF HISTORY: Patient is a 45-year-old, pleasant, white female scheduled for an upper endoscopy as a part of evaluation of long-standing history of GERD and possible Hill's esophagus. She is currently maintained on Protonix 40 mg daily. Last EGD was done a year ago and was noted to have a grade C reflux esophagitis and short segment Hill's esophagus.. PROCEDURE PERFORMED: Esophagogastroduodenoscopy with biopsy. PREOPERATIVE DIAGNOSIS: . GERD/esophagitis/Hill's esophagus IV sedation per anesthesia. PROCEDURE: After informed consent was obtained, the patient was brought into the endoscopy unit. IV sedation was administered by Anesthesia under continuous monitoring. Initially the Olympus GIF-140 video endoscope was inserted into the mouth. Esophagus intubated without any difficulty. It was gradually advanced into the stomach and duodenum and carefully examined. The bulb and the second part of the duodenum appeared normal. The scope at this time was withdrawn to the stomach, adequately insufflated with air, and upon careful examination, mucosa of the antrum, body, cardia and the fundus appeared normal. The scope was then withdrawn into the esophagus. small hiatal hernia noted. The GE junction was located at 35 cm from the incisors. also there were 2 superficial erosions at the GE junction consistent with LA grade B reflux esophagitis. Also there were 2 islands of Hill's appearing mucosa measuring 1-2 mm in size discussed with the GE junction that was biopsied. The Rest of the esophagus appeared normal and the patient tolerated the procedure well. IMPRESSION: 1. 2 small islands of Hill's appearing mucosa just proximal to the GE junction status post biopsy. 2. Superficial erosions at the distal esophagus consistent with LA grade B reflux esophagitis. 3. Small hiatal hernia RECOMMENDATIONS: The findings of this examination were discussed with the patient as well as a family. She was advised to follow with the biopsythe biopsy shows evidence of Hill's esophagus he can have a repeat upper endoscopy in 3 years
[2021-02-07 11:18] VITALS: BP 139/91; PULSE 65
== END 2021-02-07 11:35 | disposition home or self-care (01) ==
LOC: ORWHC2ENDO 09:01
PROVIDERS: ATTEND Internal Medicine Gastroenterology
DX: K22.70 Barrett's esophagus without dysplasia (principal); K44.9 Diaphragmatic hernia without obstruction or gangrene; K21.00 Gastro-esophageal reflux disease with esophagitis, without bleeding; Z98.890 Other specified postprocedural states; E78.5 Hyperlipidemia, unspecified; J44.9 Chronic obstructive pulmonary disease, unspecified; L40.9 Psoriasis, unspecified; Z87.11 Personal history of peptic ulcer disease
CPT/HCPCS: 43239; 88305; 88312; J2704

== ENCOUNTER → 2021-02-22 | Outpatient (CLI) | payer OTHER ==
--- NOTE | 2021-02-22 16:19 | XR ---
Bilateral knees HISTORY: Polyarthritis 3 views of each knee submitted, total 6 images Bone mineralization, joint spaces and alignment are maintained no evident joint effusion. IMPRESSION: Normal knees
--- NOTE | 2021-02-22 16:21 | XR ---
Lumbosacral spine HISTORY: Pain 5 views of lumbosacral spine Bone mineralization, lumbar vertebral body height, alignment are maintained, there is no evident spon dylolysis. Disc spaces are maintained. Possible atherosclerotic calcification present along the aorta iliac distribution, question surgical clip in the right lower quadrant. IMPRESSION: Normal lumbar spine
--- NOTE | 2021-02-22 16:22 | XR ---
AP pelvis HISTORY:M13.0 Polyarthritis Single frontal view of the pelvis Bone mineralization, joint spaces and alignment are maintained. Possible phleboliths within the pelvi s. Question surgical clip in the right lower quadrant, correlate for appropriate history. Sacroiliac joints are unremarkable. IMPRESSION: Normal pelvis.
--- NOTE | 2021-02-22 16:24 | XR ---
Bilateral feet and bilateral ankles HISTORY: M13.0 Polyarthritis 3 views of each ankle, 3 views of each foot submitted Bone mineralization, joint spaces and alignment are maintained. IMPRESSION: Normal feet and normal ankles.
--- NOTE | 2021-02-22 16:26 | XR ---
Bilateral hands and bilateral wrists HISTORY: M13.0 Polyarthritis 3 views of each hand, 4 views of each wrist Bone mineralization, joint spaces and alignment are maintained. IMPRESSION: Normal hands and normal wrists.
== END | disposition home or self-care (01) ==
LOC: RADXRMAIN 13:48
PROVIDERS: ATTEND Nurse Practitioner Family
DX: M13.0 Polyarthritis, unspecified (principal); M54.5 Low back pain
CPT/HCPCS: 72110; 72170

== ENCOUNTER → 2021-04-03 | Outpatient (CLI) | payer OTHER ==
[2021-04-03 20:22] LABS: Basophils # (A) 0.04 X 10*3/uL (0.00-0.10); Basophils % (A) 0.4 %; Eosinophils # (A) 0.06 X 10*3/uL (0.04-0.35); Eosinophils % (A) 0.5 %; HCT 51.4 % (37.2-46.3); HGB 16.2 g/dL (12.0-15.0); Lymphocytes # (A) 1.23 X 10*3/uL (0.90-5.00); Lymphocytes % (A) 10.9 %; MCH 32.9 pg (27.0-32.0); MCHC 31.5 g/dL (32.0-37.0); MCV 104.3 fL (80.0-97.0); Mean Platelet Volume 9.6 fL (9.5-12.2); Monocytes % (A) 2.7 %; Neutrophils # (A) 9.58 X 10*3/uL (1.80-7.70); Platelet Count 266 X 10*3/uL (140-440); RBC 4.93 X 10*6/uL (4.10-5.20); WBC 11.27 X 10*3/uL (4.50-10.00)
[2021-04-03 21:49] LABS: African American GFR (CKD) 103.2 (60.0-200.0)
== END | disposition home or self-care (01) ==
LOC: LABWHC1 09:39
PROVIDERS: ATTEND Family Medicine
DX: L40.0 Psoriasis vulgaris (principal)
CPT/HCPCS: 36415; 82565; 84450; 84460; 85025; 86480

== ENCOUNTER 2021-07-03 16:06 | Emergency (ER) | payer OTHER ==
[2021-07-03 17:09] VITALS: BP 143/88; RESP 18
[2021-07-03] MEDS ORDERED: ACETAMINOPHEN TAB 500 MG TAB PO STA (17:10)
--- NOTE | 2021-07-03 17:57 | ED ---
Fever HPI - General Chief Complaint: Fever Stated Complaint: Fever Time Seen by Provider: 07/03/21 17:54 Source: patient, RN notes reviewed Mode of arrival: ambulatory Limitations: no limitations - History of Present Illness Initial Comments: This is a pleasant 46-year-old female with a history of COPD who presents to us department stating that she started getting body aches, fever, dry cough, headache yesterday. Patient works for [employer] exposed to COVID-19 there. Patient is fully vaccinated and boosted for COVID-19. She denies any shortness of breath. Cough is nonproductive. Patient does take inhalers at home for COPD. Patient is also a daily cigarette smoker. , no changes in vision or hearing, no sore throat or difficulty with speech, no neck pain, no chest pain or shortness of breath, no abdominal pain, no nausea or vomiting, no changes in urination or bowel movements, no numbness or tingling, no extremity pain, no skin rashes or lesions. - Related Data Home Medications Medication Instructions Recorded Confirmed Atorvastatin [Lipitor] 40 mg PO DAILY 01/12/20 02/07/21 Pantoprazole Sodium [Protonix] 40 - 80 mg PO DAILY PRN 01/12/20 02/07/21 Adalimumab [Humira Pen] 40 mg SQ [id number] 02/05/21 02/07/21 Albuterol Nebulizer 1 dose INHALATION DIRECTED PRN 02/05/21 Albuterol Sulfate [Proair Hfa] 1 - 2 puff INHALATION Q6HR PRN 02/05/21 02/07/21 Calcium Carb/Magnesium Hydrox 1 tab PO DIRECTED PRN 02/05/21 02/07/21 [Rolaids Chew tab] Fluticasone/Salmeterol [Advair 1 each IH DAILY 02/05/21 02/07/21 250-50 Diskus] Loratadine [Claritin] 10 mg PO DAILY 02/05/21 02/05/21 Previous Rx's Medication Instructions Recorded Azithromycin [Zithromax Z-pack (6 250 mg PO DIRECTED #6 tab 07/03/21 tabs)] predniSONE 50 mg PO DAILY #5 tab 07/03/21 Allergies Allergy/AdvReac Type Severity Reaction Status Date / Time diphenhydramine Allergy Chest Verified 07/03/21 17:09 [From Benadryl] Pain, anaphylaxis codeine AdvReac migraines Verified 07/03/21 17:09 tramadol HCl [From Ultram] AdvReac migraines Verified 07/03/21 17:09 lactated ringers Allergy Anaphylaxis Uncoded 02/05/21 11:33 Review of Systems ROS Statement: Those systems with pertinent positive or pertinent negative responses have been documented in the HPI. ROS Other: All systems not noted in ROS Statement are negative. Past Medical History Past Medical History: Asthma, COPD, GERD/Reflux, Hyperlipidemia, Pneumonia, Skin Disorder Additional Past Medical History / Comment(s): Psoriasis; CHRONIC BRONCHITIS., receiving steroid injections for plantar faciitis. History of Any Multi-Drug Resistant Organisms: None Reported Past Surgical History: Appendectomy, Section, Hysterectomy Additional Past Surgical History / Comment(s): MOLES REMOVED BY EYE WITH ANESTHESIA Past Anesthesia/Blood Transfusion Reactions: No Reported Reaction, Family History of Problems w/ Anesthesia Additional Past Anesthesia/Blood Transfusion Reaction / Comment(s): low b/p during one surgery. Daughter = low oxygen and bronchial spasms. Past Psychological History: No Psychological Hx Reported Smoking Status: Current every day smoker Past Alcohol Use History: Occasional Past Drug Use History: None Reported - Past Family History Mother Family Medical History: Hypertension Additional Family Medical History / Comment(s): brain aneurysm Father Additional Family Medical History / Comment(s): suicide General Exam - General Exam Comments Initial Comments: Patient appears mildly ill but not toxic. SpO2 on room air is 97% at the time I am seeing the patient. There is no tachypnea. Patient does have mild wheezing noted on auscultation. Limitations: no limitations General appearance: alert, in no apparent distress Head exam: Present: atraumatic, normocephalic, normal inspection Eye exam: Present: normal appearance, PERRL, EOMI. Absent: scleral icterus, conjunctival injection, periorbital swelling ENT exam: Present: normal exam, mucous membranes moist Neck exam: Present: normal inspection, full ROM. Absent: tenderness, meningismus, lymphadenopathy Respiratory exam: Present: wheezes. Absent: respiratory distress, rales, rhonchi, stridor Cardiovascular Exam: Present: regular rate, normal rhythm, normal heart sounds. Absent: systolic murmur, diastolic murmur, rubs, gallop, clicks GI/Abdominal exam: Present: soft, normal bowel sounds. Absent: distended, tenderness, guarding, rebound, rigid Extremities exam: Present: normal inspection, full ROM, normal capillary refill. Absent: tenderness, pedal edema, joint swelling, calf tenderness Back exam: Present: normal inspection Neurological exam: Present: alert, oriented X3, CN II-XII intact Psychiatric exam: Present: normal affect, normal mood Skin exam: Present: warm, dry, intact, normal color. Absent: rash Course Vital Signs 07/03/21 07/03/21 17:05 20:33 Temperature 103.3 F H 100.0 F H Pulse Rate 110 H 78 Respiratory 18 18 Rate Blood Pressure 143/88 O2 Sat by Pulse 97 96 Oximetry - Reevaluation(s) Reevaluation #1: 07/03/21 20:41 Patient reevaluated, vital signs have stabilized after antipyretics. No respiratory distress Reevaluation #2: 07/03/21 21:04 Patient reevaluated prior to discharge and is resting comfortably. No evidence of respiratory distress. Medical Decision Making - Medical Decision Making Patient presents for symptoms of COVID-19. Patient meets criteria for monoclonal antibody infusion. This was ordered. Patient's oxygenation on room air is adequate. Patient has symptoms of viral syndrome. Patient does have history of COPD and does have asked her wheezing on physical examination. We'll treat the patient with corticosteroids for associated COPD exacerbation. Chest x-ray ordered to rule out secondary infection. Patient did ask for something for headache. I did give 1 dose of morphine here. Patient will need use [id number] acetaminophen for other symptomology. Work note given. Chest quarantine measures in detail with the patient. All questions answered. Follow-up with your regular physician as directed. Return to the ER immediately if any symptoms worsen, new symptoms arise, or any other problems develop. - Lab Data Lab Results 07/03/21 Range/Units 17:20 Coronavirus (PCR) Detected A (Not Detectd) Disposition Clinical Impression: Viral syndrome, Cigarette smoker, COPD with exacerbation Disposition: HOME SELF-CARE Instructions (If sedation given, give patient instructions): Coronavirus Disease 2019 (COVID-19), How to Stop Smoking (ED), COPD (Chronic Obstructive Pulmonary Disease) (ED) Additional Instructions: SELF QUARANTINE DISCHARGE: As you are at risk for symptoms due to coronavirus, please stay home and stay away from others as much as possible. Please maintain social distance of 6 feet if possible. You should not return to work until at least 3 days (72 hours) have passed since recovery of symptoms. This defined as resolution of fever without the use of fever reducing medicines and improvement in respiratory symptoms (e.g,, cough, shortness of breath) and, At least 5 days have passed since symptoms first appeared. More information about what to do if you are sick can be found on the CDC website at https://www.cdc.gov/coronavirus/2019-ncov/on-bqa-yqk-sick/xfxxc-azou-tuyo.html Expect the symptoms to last for 7-14 days from onset. Use acetaminophen (Tylenol) as needed for discomfort. You can take a maximum of 1 gram every 6 hours for discomfort, with your total dose in 24 hours not exceeding 4 grams. Be sure to maintain hydration. Drink continuous water and/or items high in vitamin C, such as orange juice and/or lemonade. For a cough you may take Mucinex or Robitussin. Also consider the use of Vicks Vapor Rub or your chest when you sleep. Use a humidifier that is cleaned frequently, in the bedroom at night. For Nausea /Vomiting/Diarrhea associated with your Illness: o Small frequent sips of room temperature liquids. o Diet: [employer] - If you are still experiencing discomfort and/or nausea please slowly advancing your diet using the BRAT Diet = bananas, rice, apples/apple sauce, toast. o With diarrhea avoid any dairy for 48 hours after symptoms resolved. o Continue with activity as tolerated. If your symptoms do get worse and you believe that the upper respiratory infection has developed into something else, such as pneumonia or severe dehydration, please return to the emergency department or follow-up with your primary care. But expect to be symptomatic for the days as indicated above Touch base with your regular physician for follow-up by phone. You can call tomorrow and let them know you tested positive for COVID-19. Prescriptions: predniSONE 50 mg PO DAILY #5 tab Azithromycin [Zithromax Z-pack (6 tabs)] 250 mg PO DIRECTED #6 tab Is patient prescribed a controlled substance at d/c from ED?: No Referrals: Cem Espino MD [Primary Care Provider] - 1-2 days Time of Disposition: 21:05
[2021-07-03] MEDS ORDERED: BAMLANIVIMAB (EUA) 700 MG, ETESEVIMAB (EUA) 1,400 MG in SODIUM CHLORIDE 0.9% 100 ML IVPB ONE ×6 (18:45)
[2021-07-03] MEDS ORDERED: SODIUM CHLORIDE 0.9% 50 ML IVPB ONE (18:45)
[2021-07-03] MEDS ORDERED: predniSONE 20 MG TAB PO STA (20:30)
[2021-07-03] MEDS ORDERED: MORPHINE SULFATE 4 MG/ML SYRINGE IM STA (20:31)
[2021-07-03 20:35] VITALS: PULSE 78; TEMP 100
[2021-07-03] MEDS ORDERED: AZITHROMYCIN 500 MG TAB PO STA (21:03)
[2021-07-03] MEDS ORDERED: ONDANSETRON 4 MG/2 ML VIAL IVP STA (21:15)
[2021-07-03] MEDS ORDERED: IBUPROFEN 600 MG TAB PO STA (21:22)
--- NOTE | 2021-07-03 21:36 | XR ---
EXAMINATION TYPE: XR chest 1V portable DATE OF EXAM: 07/03/2021 COMPARISON: 12/18/2020 HISTORY: 46 years Female. STUDY INDICATION GIVEN: cough/COVID-19 . TECHNIQUE: Upright AP portable chest radiograph IMPRESSION: There is mild patchy/hazy opacity in the right lung base. This is new compared to prior and concernin g for pneumonia. A patchy opacity in the left lower hemithorax peripheral aspect is not significantly changed in appea paul. Cardiomediastinal silhouette is within normal limit. No pneumothorax or effusion seen. Osseous structures are within normal limit.
== END 2021-07-03 22:07 | disposition home or self-care (01) ==
LOC: EC 16:06
DX: U07.1 COVID-19 (principal); B34.9 Viral infection, unspecified; J44.1 Chronic obstructive pulmonary disease with (acute) exacerbation; F17.210 Nicotine dependence, cigarettes, uncomplicated; K21.9 Gastro-esophageal reflux disease without esophagitis; E78.5 Hyperlipidemia, unspecified; Z88.1 Allergy status to other antibiotic agents; Z88.5 Allergy status to narcotic agent; Z90.49 Acquired absence of other specified parts of digestive tract; Z90.710 Acquired absence of both cervix and uterus
CPT/HCPCS: 96372; 96374; 99284; M0245; 71045; 87635

== ENCOUNTER 2021-07-09 16:30 | Emergency (ER) | payer OTHER ==
[2021-07-09 17:31] VITALS: RESP 18
[2021-07-09 17:53] LABS: Appearance,Urine Clear (Clear); Bilirubin,Urine Negative (Negative); Blood,Urine Negative (Negative); Color,Urine Yellow; Glucose,Urine (UA) Negative (Negative); Ketones,Urine Negative (Negative); Leukocyte Esterase,Urine Negative (Negative); Nitrite,Urine Negative (Negative); PH, Urine 6.5 (5.0-8.0); Protein,Urine Negative (Negative); Specific Gravity,Urine 1.008 (1.001-1.035); Urobilinogen,Urine <2.0 mg/dL (<2.0)
[2021-07-09 21:57] LABS: ALT 31 U/L (4-34); AST 23 U/L (14-36); African American GFR (CKD) >90 (>60 ml/min/1.73 sqM); Albumin 3.9 g/dL (3.5-5.0); Alkaline Phosphatase 79 U/L (38-126); Anion Gap 6 mmol/L; Blood Urea Nitrogen 13 mg/dL (7-17); Calcium 9.1 mg/dL (8.4-10.2); Carbon Dioxide 25 mmol/L (22-30); Chloride 107 mmol/L (98-107); Glucose 96 mg/dL (74-99); LDH 341 U/L (313-618); Magnesium 2.2 mg/dL (1.6-2.3); Non-African American GFR(CKD) >90 (>60 ml/min/1.73 sqM); Potassium 3.7 mmol/L (3.5-5.1); Sodium 138 mmol/L (137-145); Total Bilirubin 0.6 mg/dL (0.2-1.3); Total Protein 6.8 g/dL (6.3-8.2)
[2021-07-09 22:00] LABS: Basophils # (A) 0.1 k/uL (0-0.2); Basophils % (A) 1 %; Eosinophils # (A) 0.1 k/uL (0-0.7); Eosinophils % (A) 1 %; HCT 47.1 % (34.0-46.0); HGB 15.7 gm/dL (11.4-16.0); Lymphocytes # (A) 5.5 k/uL (1.0-4.8); Lymphocytes % (A) 56 %; MCHC 33.3 g/dL (31.0-37.0); MCV 102.2 fL (80.0-100.0); Macrocytosis Slight; Mean Platelet Volume 7.2; Monocytes # (A) 0.5 k/uL (0-1.0); Monocytes % (A) 5 %; Neutrophils # (A) 3.4 k/uL (1.3-7.7); Neutrophils % (A) 35 %; Platelet Count 220 k/uL (150-450); RBC 4.61 m/uL (3.80-5.40); RDW 13.8 % (11.5-15.5); WBC 9.9 k/uL (3.8-10.6)
[2021-07-09 22:06] LABS: C Reactive Protein <0.5 mg/dL (<1.0)
--- NOTE | 2021-07-09 22:35 | ED ---
General Adult HPI - General Chief complaint: Recheck/Abnormal Lab/Rx Stated complaint: Chest Pain/Covid+ Time Seen by Provider: 07/09/21 20:10 Source: patient Mode of arrival: ambulatory Limitations: no limitations - History of Present Illness Initial comments: This 46-year-old female presents emergency department with COVID-19 stating she still is having congestion, cough, watery eyes, head fullness, intermittent shortness of breath. Patient states she was here last Friday and got diagnosed with COVID-19 and received the antibody infusion. She states she was given Z- Xavier and steroids which seemed to start to improve her symptoms, however, after finishing the steroid pack and antibiotics she states she feels that her symptoms are coming back. Patient states that still have a cough with some mucus production and is slightly short of breath. Patient states she had a telehealthl visit with her primary care provider requesting more antibiotics and steroids however, her doctor told her she had to come here. Patient denies any chest pain, abdominal pain, change in vision, change in bowel or bladder, change in appetite, hemoptysis, nausea or vomiting. - Related Data Home Medications Medication Instructions Recorded Confirmed Atorvastatin [Lipitor] 40 mg PO DAILY 01/12/20 07/09/21 Pantoprazole Sodium [Protonix] 40 mg PO BID 01/12/20 07/09/21 Fluticasone/Salmeterol [Advair 1 puff INHALATION RT-DAILY 02/05/21 07/09/21 250-50 Diskus] Adalimumab [Humira(Cf) Pen] 40 mg SQ Q14D 07/09/21 07/09/21 Clobetasol 0.05% Gel 1 applic TOPICAL BID PRN 07/09/21 07/09/21 Ipratropium-Albuterol Nebulize 3 ml INHALATION RT-QID PRN 07/09/21 07/09/21 [Duoneb 0.5 mg-3 mg/3 ml Soln] Montelukast Sodium [Singulair] 10 mg PO DAILY 07/09/21 07/09/21 Previous Rx's Medication Instructions Recorded Albuterol Sulfate [Albuterol 1 - 2 puff PO Q4-6H #8.5 gm 07/09/21 Sulfate Hfa] Dexamethasone [Decadron] 6 mg PO DAILY 9 Days #9 tablet 07/09/21 Allergies Allergy/AdvReac Type Severity Reaction Status Date / Time diphenhydramine Allergy Chest Verified 07/09/21 22:29 [From Benadryl] Pain, anaphylaxis codeine AdvReac migraines Verified 07/09/21 22:29 tramadol HCl [From Ultram] AdvReac migraines Verified 07/09/21 22:29 lactated ringers Allergy Anaphylaxis Uncoded 07/09/21 22:29 Review of Systems ROS Statement: Those systems with pertinent positive or pertinent negative responses have been documented in the HPI. ROS Other: All systems not noted in ROS Statement are negative. Past Medical History Past Medical History: Asthma, COPD, GERD/Reflux, Hyperlipidemia, Pneumonia, Skin Disorder Additional Past Medical History / Comment(s): Psoriasis; CHRONIC BRONCHITIS., receiving steroid injections for plantar faciitis. History of Any Multi-Drug Resistant Organisms: None Reported Past Surgical History: Appendectomy, Section, Hysterectomy Additional Past Surgical History / Comment(s): MOLES REMOVED BY EYE WITH ANESTHESIA Past Anesthesia/Blood Transfusion Reactions: No Reported Reaction, Family History of Problems w/ Anesthesia Additional Past Anesthesia/Blood Transfusion Reaction / Comment(s): low b/p during one surgery. Daughter = low oxygen and bronchial spasms. Past Psychological History: No Psychological Hx Reported Smoking Status: Current every day smoker Past Alcohol Use History: Occasional Past Drug Use History: None Reported - Past Family History Mother Family Medical History: Hypertension Additional Family Medical History / Comment(s): brain aneurysm Father Additional Family Medical History / Comment(s): suicide General Exam Limitations: no limitations General appearance: alert, in no apparent distress Head exam: Present: atraumatic, normocephalic Eye exam: Present: normal appearance, EOMI ENT exam: Present: normal exam, mucous membranes moist Neck exam: Present: normal inspection, full ROM Respiratory exam: Present: normal lung sounds bilaterally, other (Patient coughing when asked to inhale.). Absent: respiratory distress, wheezes, rales, rhonchi, stridor Cardiovascular Exam: Present: regular rate, normal rhythm, normal heart sounds. Absent: systolic murmur, diastolic murmur, rubs, gallop, clicks GI/Abdominal exam: Present: soft, normal bowel sounds. Absent: distended, tenderness, guarding, rebound, rigid Extremities exam: Present: full ROM. Absent: pedal edema, calf tenderness Back exam: Present: normal inspection, full ROM. Absent: tenderness, CVA tenderness (R), CVA tenderness (L) Neurological exam: Present: alert, oriented X3, CN II-XII intact Psychiatric exam: Present: normal affect, normal mood Skin exam: Present: warm, dry, intact, normal color. Absent: rash Course Vital Signs 07/09/21 07/09/21 07/09/21 17:23 20:30 21:01 Temperature 98.5 F 98.6 F Pulse Rate 85 69 Respiratory 18 18 18 Rate Blood Pressure 143/100 166/91 O2 Sat by Pulse 98 95 Oximetry 07/09/21 23:00 Temperature 97.9 F Pulse Rate 59 L Respiratory 18 Rate Blood Pressure 126/69 O2 Sat by Pulse 92 L Oximetry Medical Decision Making - Medical Decision Making This 38-year-old female presents emergency department who was diagnosed with COVID-19 last week. Patient states her symptoms began to get better until her steroids and Z-Xavier ran out yesterday. Patient states she is still having nasal congestion, cough, watery eyes, mild headache and intermittent shortness of breath. Chest x-ray impression: Normal chest. Heart and mediastinum are normal. Lungs are clear. Diaphragm is normal. Bony thorax is intact. Labs unremarkable. D-dimer negative. Urine unremarkable. Patient advised to take [id number] zinc, vitamin C, vitamin D and to obtain a pulse oximeter from [facility] and to return to the emergency department oxygen is ever below 90%. Patient to be sent home to follow-up with primary care provider in next 1-2 days. Patient verbally agreed plan. Strict return precautions given. Patient sent home in stable condition. - Lab Data Result diagrams: 07/09/21 21:38 07/09/21 21:38 Lab Results 07/09/21 07/09/21 07/09/21 Range/Units 17:37 21:38 21:38 WBC 9.9 (3.8-10.6) k/uL RBC 4.61 (3.80-5.40) m/uL Hgb 15.7 (11.4-16.0) gm/dL Hct 47.1 H (34.0-46.0) % MCV 102.2 H (80.0-100.0) fL MCH 34.0 (25.0-35.0) pg MCHC 33.3 (31.0-37.0) g/dL RDW 13.8 (11.5-15.5) % Plt Count 220 (150-450) k/uL MPV 7.2 Neutrophils % 35 % Lymphocytes % 56 % Monocytes % 5 % Eosinophils % 1 % Basophils % 1 % Neutrophils # 3.4 (1.3-7.7) k/uL Lymphocytes # 5.5 H (1.0-4.8) k/uL Monocytes # 0.5 (0-1.0) k/uL Eosinophils # 0.1 (0-0.7) k/uL Basophils # 0.1 (0-0.2) k/uL Manual Slide Review Performed Macrocytosis Slight D-Dimer (<0.60) mg/L FEU Sodium 138 (137-145) mmol/L Potassium 3.7 (3.5-5.1) mmol/L Chloride 107 (98-107) mmol/L Carbon Dioxide 25 (22-30) mmol/L Anion Gap 6 mmol/L BUN 13 (7-17) mg/dL Creatinine 0.63 (0.52-1.04) mg/dL Est GFR (CKD-EPI)AfAm >90 (>60 ml/min/1.73 sqM) Est GFR (CKD-EPI)NonAf >90 (>60 ml/min/1.73 sqM) Glucose 96 (74-99) mg/dL Calcium 9.1 (8.4-10.2) mg/dL Magnesium 2.2 (1.6-2.3) mg/dL Total Bilirubin 0.6 (0.2-1.3) mg/dL AST 23 (14-36) U/L ALT 31 (4-34) U/L Alkaline Phosphatase 79 (38-126) U/L Lactate Dehydrogenase 341 (313-618) U/L C-Reactive Protein <0.5 (<1.0) mg/dL Total Protein 6.8 (6.3-8.2) g/dL Albumin 3.9 (3.5-5.0) g/dL Urine Color Yellow Urine Appearance Clear (Clear) Urine pH 6.5 (5.0-8.0) Ur Specific [place] 1.008 (1.001-1.035) Urine Protein Negative (Negative) Urine Glucose (UA) Negative (Negative) Urine Ketones Negative (Negative) Urine Blood Negative (Negative) Urine Nitrite Negative (Negative) Urine Bilirubin Negative (Negative) Urine Urobilinogen <2.0 (<2.0) mg/dL Ur Leukocyte Esterase Negative (Negative) Urine HCG, Qual (Not Detectd) 07/09/21 07/09/21 07/09/21 Range/Units 21:38 22:19 22:19 WBC (3.8-10.6) k/uL RBC (3.80-5.40) m/uL Hgb (11.4-16.0) gm/dL Hct (34.0-46.0) % MCV (80.0-100.0) fL MCH (25.0-35.0) pg MCHC (31.0-37.0) g/dL RDW (11.5-15.5) % Plt Count (150-450) k/uL MPV Neutrophils % % Lymphocytes % % Monocytes % % Eosinophils % % Basophils % % Neutrophils # (1.3-7.7) k/uL Lymphocytes # (1.0-4.8) k/uL Monocytes # (0-1.0) k/uL Eosinophils # (0-0.7) k/uL Basophils # (0-0.2) k/uL Manual Slide Review Macrocytosis D-Dimer <0.17 (<0.60) mg/L FEU Sodium (137-145) mmol/L Potassium (3.5-5.1) mmol/L Chloride (98-107) mmol/L Carbon Dioxide (22-30) mmol/L Anion Gap mmol/L BUN (7-17) mg/dL Creatinine (0.52-1.04) mg/dL Est GFR (CKD-EPI)AfAm (>60 ml/min/1.73 sqM) Est GFR (CKD-EPI)NonAf (>60 ml/min/1.73 sqM) Glucose (74-99) mg/dL Calcium (8.4-10.2) mg/dL Magnesium (1.6-2.3) mg/dL Total Bilirubin (0.2-1.3) mg/dL AST (14-36) U/L ALT (4-34) U/L Alkaline Phosphatase (38-126) U/L Lactate Dehydrogenase (313-618) U/L C-Reactive Protein (<1.0) mg/dL Total Protein (6.3-8.2) g/dL Albumin (3.5-5.0) g/dL Urine Color Light Yellow Urine Appearance Clear (Clear) Urine pH 6.0 (5.0-8.0) Ur Specific [place] 1.005 (1.001-1.035) Urine Protein Negative (Negative) Urine Glucose (UA) Negative (Negative) Urine Ketones Negative (Negative) Urine Blood Negative (Negative) Urine Nitrite Negative (Negative) Urine Bilirubin Negative (Negative) Urine Urobilinogen <2.0 (<2.0) mg/dL Ur Leukocyte Esterase Negative (Negative) Urine HCG, Qual Not Detected (Not Detectd) Disposition Clinical Impression: COVID-19 Disposition: HOME SELF-CARE Condition: Stable Additional Instructions: Please return to the emergency department with any concerning, new, worsening symptoms. Please follow up with primary care provider next 1-2 days. Take [id number] zinc, vitamin C, vitamin D. Take Decadron as directed. Use albuterol inhaler as directed. Advised to get pulse oximeter from [facility] and to return to the emergency department oxygen drops below 90%. Prescriptions: Albuterol Sulfate [Albuterol Sulfate Hfa] 1 - 2 puff PO Q4-6H #8.5 gm Dexamethasone [Decadron] 6 mg PO DAILY 9 Days #9 tablet Is patient prescribed a controlled substance at d/c from ED?: No Referrals: Cem Espino MD [Primary Care Provider] - 1-2 days Decision Time: 23:59
[2021-07-09 22:41] LABS: Appearance,Urine Clear (Clear); Bilirubin,Urine Negative (Negative); Blood,Urine Negative (Negative); Color,Urine Light Yellow; Glucose,Urine (UA) Negative (Negative); Ketones,Urine Negative (Negative); Leukocyte Esterase,Urine Negative (Negative); Nitrite,Urine Negative (Negative); Protein,Urine Negative (Negative); Specific Gravity,Urine 1.005 (1.001-1.035); Urobilinogen,Urine <2.0 mg/dL (<2.0)
[2021-07-09 23:21] VITALS: BP 126/69; PULSE 59; TEMP 97.9
[2021-07-09] MEDS ORDERED: dexAMETHasone 2 MG TAB PO STA (23:37)
--- NOTE | 2021-07-09 23:46 | XR ---
EXAMINATION TYPE: XR chest 2V DATE OF EXAM: 07/09/2021 COMPARISON: 07/03/2021 HISTORY: Cough TECHNIQUE: FINDINGS: Heart and mediastinum are normal. Lungs are clear. Diaphragm is normal. Bony thorax is inta ct. IMPRESSION: Normal chest. No change.
[2021-07-10 03:14] LABS: Ferritin 98.8 ng/mL (10.0-291.0)
== END 2021-07-10 00:15 | disposition home or self-care (01) ==
LOC: EC 16:30
DX: U07.1 COVID-19 (principal); K21.9 Gastro-esophageal reflux disease without esophagitis; J44.9 Chronic obstructive pulmonary disease, unspecified; J45.909 Unspecified asthma, uncomplicated; F17.200 Nicotine dependence, unspecified, uncomplicated; Z79.1 Long term (current) use of non-steroidal anti-inflammatories (NSAID); Z88.8 Allergy status to other drugs, medicaments and biological substances; Z88.5 Allergy status to narcotic agent; Z91.011 Allergy to milk products
CPT/HCPCS: 36415; 85379; 80053; 82728; 83615; 83735; 85025; 86140; 81003; 81025; 84145; 71046; 99285; J8540

== ENCOUNTER 2021-07-19 10:17 | Emergency (ER) | payer OTHER ==
[2021-07-19 10:28] VITALS: RESP 18
[2021-07-19] MEDS ORDERED: SODIUM CHLORIDE 0.9% 500 ML 500 ML IV STA (10:40)
[2021-07-19] MEDS ORDERED: HYDROmorphone 0.5 MG/0.5 ML SYRINGE IVP STA (10:44)
[2021-07-19] MEDS ORDERED: methylPREDNISolone SOD SUCCI 125 MG/2 ML VIAL IV STA (10:44)
[2021-07-19 10:55] LABS: Basophils % (A) 0 %; Eosinophils # (A) 0.1 k/uL (0-0.7); Eosinophils % (A) 1 %; Lymphocytes # (A) 3.6 k/uL (1.0-4.8); Lymphocytes % (A) 23 %; MCH 34.1 pg (25.0-35.0); MCHC 32.6 g/dL (31.0-37.0); MCV 104.7 fL (80.0-100.0); Macrocytosis Moderate; Mean Platelet Volume 6.8; Monocytes # (A) 0.7 k/uL (0-1.0); Monocytes % (A) 4 %; Neutrophils # (A) 11.1 k/uL (1.3-7.7); Neutrophils % (A) 71 %; Platelet Count 313 k/uL (150-450); RBC 4.68 m/uL (3.80-5.40); WBC 15.7 k/uL (3.8-10.6)
--- NOTE | 2021-07-19 10:57 | ED ---
General Adult HPI - General Chief complaint: Chest Pain Stated complaint: Chest Pain/Covid+ Time Seen by Provider: 07/19/21 10:31 Source: patient, RN notes reviewed, old records reviewed Mode of arrival: ambulatory Limitations: no limitations - History of Present Illness Initial comments: 46-year-old female presenting for evaluation of chest pain associated with cough. Patient is on day 16 of coronavirus. She does have history of COPD. She is a current smoker although she states she has been cutting back. She's had diffuse chest pain. With associated dyspnea. No lower extremity pain or swelling. No central radiating chest pain. She denies current fevers but states that she had been running fevers up until very recently. She presents to the emergency department on the and received monoclonal antibodies. - Related Data Home Medications Medication Instructions Recorded Confirmed Atorvastatin [Lipitor] 40 mg PO DAILY 01/12/20 07/19/21 Pantoprazole Sodium [Protonix] 40 mg PO BID 01/12/20 07/19/21 Fluticasone/Salmeterol [Advair 1 puff INHALATION RT-DAILY 02/05/21 07/19/21 250-50 Diskus] Adalimumab [Humira(Cf) Pen] 40 mg SQ Q14D 07/09/21 07/19/21 Clobetasol 0.05% Gel 1 applic TOPICAL BID PRN 07/09/21 07/19/21 Ipratropium-Albuterol Nebulize 3 ml INHALATION RT-QID PRN 07/09/21 07/19/21 [Duoneb 0.5 mg-3 mg/3 ml Soln] Montelukast Sodium [Singulair] 10 mg PO DAILY 07/09/21 07/19/21 Albuterol Sulfate [Albuterol 1 - 2 puff INHALATION RT-Q4H PRN 07/19/21 07/19/21 Sulfate Hfa] Amoxic-Pot Clav 875-125Mg 1 tab PO BID 07/19/21 07/19/21 [Augmentin 875-125] Previous Rx's Medication Instructions Recorded predniSONE 50 mg PO DAILY #5 tab 07/19/21 Allergies Allergy/AdvReac Type Severity Reaction Status Date / Time diphenhydramine Allergy Chest Verified 07/19/21 11:38 [From Benadryl] Pain, anaphylaxis codeine AdvReac migraines Verified 07/19/21 11:38 tramadol HCl [From Ultram] AdvReac migraines Verified 07/19/21 11:38 lactated ringers Allergy Anaphylaxis Uncoded 07/19/21 11:38 Review of Systems ROS Statement: Those systems with pertinent positive or pertinent negative responses have been documented in the HPI. ROS Other: All systems not noted in ROS Statement are negative. Past Medical History Past Medical History: Asthma, COPD, GERD/Reflux, Hyperlipidemia, Pneumonia, Skin Disorder Additional Past Medical History / Comment(s): Psoriasis; CHRONIC BRONCHITIS., receiving steroid injections for plantar faciitis. History of Any Multi-Drug Resistant Organisms: None Reported Past Surgical History: Appendectomy, Section, Hysterectomy Additional Past Surgical History / Comment(s): MOLES REMOVED BY EYE WITH ANESTHESIA Past Anesthesia/Blood Transfusion Reactions: No Reported Reaction, Family History of Problems w/ Anesthesia Additional Past Anesthesia/Blood Transfusion Reaction / Comment(s): low b/p during one surgery. Daughter = low oxygen and bronchial spasms. Past Psychological History: No Psychological Hx Reported Smoking Status: Current every day smoker Past Alcohol Use History: Occasional Past Drug Use History: None Reported - Past Family History Mother Family Medical History: Hypertension Additional Family Medical History / Comment(s): brain aneurysm Father Additional Family Medical History / Comment(s): suicide General Exam Limitations: no limitations General appearance: alert, in no apparent distress Head exam: Present: atraumatic, normocephalic Eye exam: Present: normal appearance, PERRL ENT exam: Present: normal exam Neck exam: Present: normal inspection. Absent: tenderness, meningismus Respiratory exam: Present: wheezes, rhonchi. Absent: respiratory distress Cardiovascular Exam: Present: regular rate, normal rhythm GI/Abdominal exam: Present: soft. Absent: distended, tenderness, guarding Extremities exam: Present: normal inspection, normal capillary refill Neurological exam: Present: alert, oriented X3, CN II-XII intact. Absent: motor sensory deficit Psychiatric exam: Present: normal affect, normal mood Skin exam: Present: warm, dry, intact. Absent: cyanosis, diaphoretic Course Vital Signs 07/19/21 07/19/21 10:26 10:31 Temperature 99.1 F Pulse Rate 86 Respiratory 18 18 Rate Blood Pressure 161/86 O2 Sat by Pulse 98 Oximetry EKG Findings - EKG Comments: EKG Findings:: EKG: Normal sinus rhythm, rate of 69, GA interval 136, QRS duration 80, QTC 4:[address] segment elevation. Medical Decision Making - Medical Decision Making 38-year-old female on roughly day 16 of coronavirus with bilateral chest discomfort cough. History of COPD. Workup is initiated, EKG sinus rhythm without ST segment elevation or definitive signs of ischemia. She has a leukocytosis which is likely from recent steroid administration. She has a negative d-dimer. Mildly elevated blood glucose which is likely also from steroid administration. Chest x-rays negative for acute cardiopulmonary disease. Patient feeling better at the time of reevaluation. She is instructed to take vitamin C, vitamin D, and zinc. Additionally she will be prescribed an additional 5 days of prednisone. She should follow-up with her primary care jose maria santoro. She should return to the emergency department with worsening or changing symptoms. - Lab Data Result diagrams: 07/19/21 10:46 07/19/21 10:46 Lab Results 07/19/21 07/19/21 07/19/21 Range/Units 10:46 10:46 10:46 WBC 15.7 H (3.8-10.6) k/uL RBC 4.68 (3.80-5.40) m/uL Hgb 16.0 (11.4-16.0) gm/dL Hct 49.0 H (34.0-46.0) % MCV 104.7 H (80.0-100.0) fL MCH 34.1 (25.0-35.0) pg MCHC 32.6 (31.0-37.0) g/dL RDW 14.0 (11.5-15.5) % Plt Count 313 (150-450) k/uL MPV 6.8 Neutrophils % 71 % Lymphocytes % 23 % Monocytes % 4 % Eosinophils % 1 % Basophils % 0 % Neutrophils # 11.1 H (1.3-7.7) k/uL Lymphocytes # 3.6 (1.0-4.8) k/uL Monocytes # 0.7 (0-1.0) k/uL Eosinophils # 0.1 (0-0.7) k/uL Basophils # 0.0 (0-0.2) k/uL Macrocytosis Moderate PT 9.7 (9.0-12.0) sec INR 0.9 (<1.2) APTT 21.2 L (22.0-30.0) sec D-Dimer 0.20 (<0.60) mg/L FEU Sodium 138 (137-145) mmol/L Potassium 4.1 (3.5-5.1) mmol/L Chloride 104 (98-107) mmol/L Carbon Dioxide 26 (22-30) mmol/L Anion Gap 8 mmol/L BUN 18 H (7-17) mg/dL Creatinine 0.63 (0.52-1.04) mg/dL Est GFR (CKD-EPI)AfAm >90 (>60 ml/min/1.73 sqM) Est GFR (CKD-EPI)NonAf >90 (>60 ml/min/1.73 sqM) Glucose 195 H (74-99) mg/dL Calcium 9.9 (8.4-10.2) mg/dL Magnesium 2.2 (1.6-2.3) mg/dL Total Bilirubin 0.5 (0.2-1.3) mg/dL AST 16 (14-36) U/L ALT 34 (4-34) U/L Alkaline Phosphatase 77 (38-126) U/L Troponin I (0.000-0.034) ng/mL Total Protein 7.5 (6.3-8.2) g/dL Albumin 4.4 (3.5-5.0) g/dL 07/19/21 Range/Units 10:46 WBC (3.8-10.6) k/uL RBC (3.80-5.40) m/uL Hgb (11.4-16.0) gm/dL Hct (34.0-46.0) % MCV (80.0-100.0) fL MCH (25.0-35.0) pg MCHC (31.0-37.0) g/dL RDW (11.5-15.5) % Plt Count (150-450) k/uL MPV Neutrophils % % Lymphocytes % % Monocytes % % Eosinophils % % Basophils % % Neutrophils # (1.3-7.7) k/uL Lymphocytes # (1.0-4.8) k/uL Monocytes # (0-1.0) k/uL Eosinophils # (0-0.7) k/uL Basophils # (0-0.2) k/uL Macrocytosis PT (9.0-12.0) sec INR (<1.2) APTT (22.0-30.0) sec D-Dimer (<0.60) mg/L FEU Sodium (137-145) mmol/L Potassium (3.5-5.1) mmol/L Chloride (98-107) mmol/L Carbon Dioxide (22-30) mmol/L Anion Gap mmol/L BUN (7-17) mg/dL Creatinine (0.52-1.04) mg/dL Est GFR (CKD-EPI)AfAm (>60 ml/min/1.73 sqM) Est GFR (CKD-EPI)NonAf (>60 ml/min/1.73 sqM) Glucose (74-99) mg/dL Calcium (8.4-10.2) mg/dL Magnesium (1.6-2.3) mg/dL Total Bilirubin (0.2-1.3) mg/dL AST (14-36) U/L ALT (4-34) U/L Alkaline Phosphatase (38-126) U/L Troponin I <0.012 (0.000-0.034) ng/mL Total Protein (6.3-8.2) g/dL Albumin (3.5-5.0) g/dL Disposition Clinical Impression: COVID-19 Disposition: HOME SELF-CARE Condition: Fair Instructions (If sedation given, give patient instructions): Coronavirus Disease 2019 (COVID-19) Additional Instructions: Please take vitamin C, vitamin D and zinc. Prescriptions: predniSONE 50 mg PO DAILY #5 tab Is patient prescribed a controlled substance at d/c from ED?: No Referrals: Cem Espino MD [Primary Care Provider] - 1-2 days Time of Disposition: 12:23
[2021-07-19 11:09] LABS: ALT 34 U/L (4-34); AST 16 U/L (14-36); African American GFR (CKD) >90 (>60 ml/min/1.73 sqM); Albumin 4.4 g/dL (3.5-5.0); Alkaline Phosphatase 77 U/L (38-126); Anion Gap 8 mmol/L; Blood Urea Nitrogen 18 mg/dL (7-17); Calcium 9.9 mg/dL (8.4-10.2); Carbon Dioxide 26 mmol/L (22-30); Chloride 104 mmol/L (98-107); Glucose 195 mg/dL (74-99); Magnesium 2.2 mg/dL (1.6-2.3); Non-African American GFR(CKD) >90 (>60 ml/min/1.73 sqM); Potassium 4.1 mmol/L (3.5-5.1); Sodium 138 mmol/L (137-145); Total Bilirubin 0.5 mg/dL (0.2-1.3); Total Protein 7.5 g/dL (6.3-8.2)
[2021-07-19 11:11] LABS: INR 0.9 (<1.2); Prothrombin Time 9.7 sec (9.0-12.0)
[2021-07-19 11:15] LABS: Partial Thromboplastin Time 21.2 sec (22.0-30.0)
--- NOTE | 2021-07-19 11:17 | XR ---
EXAMINATION TYPE: XR chest 1V portable DATE OF EXAM: 07/19/2021 COMPARISON: Chest x-ray 07/09/2021 HISTORY: Chest pain TECHNIQUE: Single frontal view of the chest is obtained. FINDINGS: There is no focal air space opacity, pleural effusion, or pneumothorax seen. The cardiac silhouette size is within normal limits. Lung volumes are low. There are overlying leads. The osseou s structures are intact. IMPRESSION: No acute process. Expiratory rotated exam, follow-up as indicated
[2021-07-19 12:38] VITALS: BP 122/76; PULSE 60; TEMP 99.2
== END 2021-07-19 12:36 | disposition home or self-care (01) ==
LOC: EC 10:17
DX: U07.1 COVID-19 (principal); J44.9 Chronic obstructive pulmonary disease, unspecified; K21.9 Gastro-esophageal reflux disease without esophagitis; E78.5 Hyperlipidemia, unspecified; F17.200 Nicotine dependence, unspecified, uncomplicated; Z88.1 Allergy status to other antibiotic agents; Z88.5 Allergy status to narcotic agent; Z90.49 Acquired absence of other specified parts of digestive tract; Z90.710 Acquired absence of both cervix and uterus
CPT/HCPCS: 99285; 96374; 96375; 96361; 36415; 93005; 85379; 80053; 83735; 84484; 85025; 85610; 85730; 71045; J2930; J1170

== ENCOUNTER 2021-07-21 15:24 | Emergency (ER) | payer OTHER ==
[2021-07-21 15:31] VITALS: TEMP 98
[2021-07-21 16:02] LABS: Glucose,Whole Blood 224 mg/dL (75-99)
--- NOTE | 2021-07-21 16:31 | XR ---
EXAMINATION TYPE: XR chest 2V DATE OF EXAM: 07/21/2021 COMPARISON: NONE HISTORY: Chest pain TECHNIQUE: 2 views FINDINGS: Heart and mediastinum are normal. Lungs are clear. Diaphragm is normal. Bony thorax is inta ct. Pulmonary vascularity is normal. IMPRESSION: Normal chest. No change.
--- NOTE | 2021-07-21 16:33 | XR ---
EXAMINATION TYPE: XR KUB DATE OF EXAM: 07/21/2021 COMPARISON: NONE HISTORY: Abdominal pain TECHNIQUE: 2 views upright FINDINGS: There is no sign of intestinal obstruction or pneumoperitoneum. Fecal pattern is normal. Thelma ng bases are clear. There are no pathologic calcifications over the kidneys. IMPRESSION: Nonacute abdomen.
[2021-07-21] MEDS ORDERED: metFORMIN 500 MG TAB PO STA (16:45)
[2021-07-21] MEDS ORDERED: FUROSEMIDE 40 MG TAB PO STA (16:45)
[2021-07-21] MEDS ORDERED: ACET/COD 300 MG/30 MG STARTER PACK 6 TAB BTL PO STA (16:45)
--- NOTE | 2021-07-21 16:48 | ED ---
General Adult HPI - General Chief complaint: Allergic Reaction Stated complaint: allergic reaction, SOB & swelling Time Seen by Provider: 07/21/21 15:59 Source: patient, RN notes reviewed Mode of arrival: ambulatory Limitations: no limitations - History of Present Illness Initial comments: 46-year-old female presented from chief complaint of ongoing cough congestion. Patient's been on multiple steroids, antibiotics at the [facility]. Patient states 7 rib pain which is most bothersome. She had multiple recent workup with a negative d-dimer. Patient states that she swelling from her steroids, but sugar has been elevated. Patient states she is urinating constantly. - Related Data Home Medications Medication Instructions Recorded Confirmed Atorvastatin [Lipitor] 40 mg PO DAILY 01/12/20 07/19/21 Pantoprazole Sodium [Protonix] 40 mg PO BID 01/12/20 07/19/21 Fluticasone/Salmeterol [Advair 1 puff INHALATION RT-DAILY 02/05/21 07/19/21 250-50 Diskus] Adalimumab [Humira(Cf) Pen] 40 mg SQ Q14D 07/09/21 07/19/21 Clobetasol 0.05% Gel 1 applic TOPICAL BID PRN 07/09/21 07/19/21 Ipratropium-Albuterol Nebulize 3 ml INHALATION RT-QID PRN 07/09/21 07/19/21 [Duoneb 0.5 mg-3 mg/3 ml Soln] Montelukast Sodium [Singulair] 10 mg PO DAILY 07/09/21 07/19/21 Albuterol Sulfate [Albuterol 1 - 2 puff INHALATION RT-Q4H PRN 07/19/21 07/19/21 Sulfate Hfa] Amoxic-Pot Clav 875-125Mg 1 tab PO BID 07/19/21 07/19/21 [Augmentin 875-125] Previous Rx's Medication Instructions Recorded predniSONE 50 mg PO DAILY #5 tab 07/19/21 Allergies Allergy/AdvReac Type Severity Reaction Status Date / Time diphenhydramine Allergy Chest Verified 07/19/21 11:38 [From Benadryl] Pain, anaphylaxis codeine AdvReac migraines Verified 07/19/21 11:38 tramadol HCl [From Ultram] AdvReac migraines Verified 07/19/21 11:38 lactated ringers Allergy Anaphylaxis Uncoded 07/19/21 11:38 Review of Systems ROS Statement: Those systems with pertinent positive or pertinent negative responses have been documented in the HPI. ROS Other: All systems not noted in ROS Statement are negative. Past Medical History Past Medical History: Asthma, COPD, GERD/Reflux, Hyperlipidemia, Pneumonia, Skin Disorder Additional Past Medical History / Comment(s): Psoriasis; CHRONIC BRONCHITIS., receiving steroid injections for plantar faciitis. History of Any Multi-Drug Resistant Organisms: None Reported Past Surgical History: Appendectomy, Section, Hysterectomy Additional Past Surgical History / Comment(s): MOLES REMOVED BY EYE WITH ANESTHESIA Past Anesthesia/Blood Transfusion Reactions: No Reported Reaction, Family History of Problems w/ Anesthesia Additional Past Anesthesia/Blood Transfusion Reaction / Comment(s): low b/p during one surgery. Daughter = low oxygen and bronchial spasms. Past Psychological History: No Psychological Hx Reported Smoking Status: Current every day smoker Past Alcohol Use History: Occasional Past Drug Use History: None Reported - Past Family History Mother Family Medical History: Hypertension Additional Family Medical History / Comment(s): brain aneurysm Father Additional Family Medical History / Comment(s): suicide General Exam Limitations: no limitations General appearance: alert, in no apparent distress Head exam: Present: atraumatic, normocephalic, normal inspection Eye exam: Present: normal appearance, PERRL, EOMI. Absent: scleral icterus, conjunctival injection, periorbital swelling ENT exam: Present: normal exam, normal oropharynx, mucous membranes moist Neck exam: Present: normal inspection, full ROM. Absent: tenderness, meningismus, lymphadenopathy Respiratory exam: Present: normal lung sounds bilaterally. Absent: respiratory distress, wheezes, rales, rhonchi, stridor Cardiovascular Exam: Present: regular rate, normal rhythm, normal heart sounds. Absent: systolic murmur, diastolic murmur, rubs, gallop, clicks GI/Abdominal exam: Present: soft, normal bowel sounds. Absent: distended, tenderness, guarding, rebound, rigid Course Vital Signs 07/21/21 15:28 Temperature 98 F Pulse Rate 103 H Respiratory 18 Rate Blood Pressure 148/84 O2 Sat by Pulse 100 Oximetry Medical Decision Making - Medical Decision Making Patient's x-rays unremarkable. I do believe that she's having some prolonged steroid symptoms. Patient will discontinue she agrees to be discharged with pain control or rib's comfort related to costochondritis and she'll follow-up with her PCP. - Lab Data Lab Results 07/21/21 Range/Units 16:01 POC Glucose (mg/dL) 224 H (75-99) mg/dL POC Glu [employer] Project [employer]er ID Renay Siddiqui Disposition Clinical Impression: Costochondritis, acute Disposition: HOME SELF-CARE Condition: Stable Instructions (If sedation given, give patient instructions): Costochondritis (ED) Additional Instructions: Please return to the Emergency Department if symptoms worsen or any other concerns. Is patient prescribed a controlled substance at d/c from ED?: No Referrals: Cem Espino MD [Primary Care Provider] - 1-2 days Time of Disposition: 16:48
[2021-07-21 17:07] VITALS: BP 139/78; PULSE 70; RESP 16
== END 2021-07-21 17:03 | disposition home or self-care (01) ==
LOC: EC 15:24
DX: M94.0 Chondrocostal junction syndrome [Tietze] (principal); J44.9 Chronic obstructive pulmonary disease, unspecified; E78.5 Hyperlipidemia, unspecified; L40.9 Psoriasis, unspecified; K21.9 Gastro-esophageal reflux disease without esophagitis; F17.200 Nicotine dependence, unspecified, uncomplicated; Z72.89 Other problems related to lifestyle; Z79.51 Long term (current) use of inhaled steroids
CPT/HCPCS: 36415; 71046; 74018; 99283

== ENCOUNTER → 2021-08-09 | Outpatient (CLI) | payer OTHER ==
--- NOTE | 2021-08-09 13:41 | USB ---
Reason for exam: additional evaluation requested from abnormal screening. Physical Findings: Nurse did not find any significant physical abnormalities on exam. US Breast Workup STEPHAN Right complete breast ultrasound includes all four quadrants, the retroareolar region and axilla. Finding demonstrates a 1.8 x 1.0 x 1.9cm solid, hypoechoic, circumscribed, new lesion at 11 o'clock, biopsy recommended. Left complete breast ultrasound includes all four quadrants, the retroareolar region and axilla. Finding demonstrates a 1.2 x 0.6 x 1.0cm mixed lesion at 2 o'clock, possible cyst cluster and a 0.7 x 0.4 x 0.7cm hypoechoic lesion, possible node at 3 o'clock. 6 month follow up recommended. These results were verbally communicated with the patient and result sheet given to the patient on 08/09/21. ASSESSMENT: Suspicious, BI-RAD 4 RECOMMENDATION: Ultrasound core biopsy of the right breast. Ultrasound of the left breast in [address] Espino's office with mammographic findings and has scheduled an appointment for the patient for 08/24/21 at 12:[address] Day. Biopsy scheduled for 08/27/21 at 1:00. PRELIMINARY REPORT CALLED AND FAXED TO DR. DAY ON 08/09/21.
== END | disposition home or self-care (01) ==
LOC: RADUSWWP 08:12
PROVIDERS: ATTEND Family Medicine
DX: R92.8 Other abnormal and inconclusive findings on diagnostic imaging of breast (principal)

== ENCOUNTER → 2021-08-24 | Outpatient (CLI) | payer OTHER ==
[2021-08-24 12:14] VITALS: BP 165/90; PULSE 77; RESP 18; TEMP 97.9
--- NOTE | 2021-08-24 12:40 | P.GSHP ---
History of Present Illness H&P Date: 08/24/21 Chief Complaint: abnormal right breast ultrasound and mammogram Mica is a 46 year old white female seen in consultation for Dr. Cem Espino regarding a mammographic and ultrasound abnormality in the right breast. She had a bilateral mammogram on 08-07-21 which showed bilateral nodularity. She had a bilateral ultrasound on 08-09-21 which showed a lesion in the right breast 1.8 by 1.9 cm for which biopsy was recommended and cysts in the left breast for which 6 month follow up was recommended. I have personally reviewed the x-rays. This was found on routine screening. The patient does not feel any lumps masses or notches of concern in either breast. She is not complaining of any new nipple discharge or skin changes. She has had quite discharge for many years sent she has breast-fed her children. Minimal in nature. She is not complaining of any recent trauma or infection of the breast. She's never had any surgery on her breast. Had not had recent breast imaging. Caffeine: multiple cups of coffee/day nicotine: 1 PPD chocolate: rare Family History; maternal grandfather: Colon cancer Hormonal history: Menarche:14 , breast fed: yes, age at first : 17 hysterectomy at 22, left ovaries endometriosis; she has had testing and is menopausal now control pills: 5 years Surgical History: Hysterectomy secondary to endometriosis Appendectomy emergency hysterectomy Medical History: Psoriasis Social history: Nicotine: One pack per day Alcohol:occasional drugs; none - Constitutional Constitutional: Reports sweats - EENT Eyes: denies blurred vision, denies pain Ears: bilateral: decreased hearing, tinnitus Ears, nose, mouth and throat: Denies headache, Denies sore throat - Breasts Breasts: bilateral: as per HPI - Cardiovascular Cardiovascular: Denies chest pain, Denies shortness of breath - Respiratory Comment: asthma - Gastrointestinal Comment: GERD, questionable Hill's - Genitourinary (Female) Genitourinary: Denies dysuria, Denies hematuria - Menstruation Menstruation: Reports as per HPI - Musculoskeletal Musculoskeletal: Denies myalgias - Integumentary Integumentary: Reports as per HPI - Neurological Neurological: Denies numbness, Denies weakness - Psychiatric Psychiatric: Denies anxiety, Denies depression - Endocrine Endocrine: Reports weight change, Denies fatigue - Hematologic/Lymphatic Comment: none - Allergic/Immunologic Allergic/Immunologic: Reports as per HPI Past Medical History Past Medical History: Asthma, COPD, GERD/Reflux, Hyperlipidemia, Pneumonia, Skin Disorder Additional Past Medical History / Comment(s): Psoriasis; CHRONIC BRONCHITIS., receiving steroid injections for plantar faciitis. History of Any Multi-Drug Resistant Organisms: None Reported Past Surgical History: Appendectomy, Section, Hysterectomy Additional Past Surgical History / Comment(s): MOLES REMOVED BY EYE WITH ANESTHESIA Past Anesthesia/Blood Transfusion Reactions: No Reported Reaction, Family History of Problems w/ Anesthesia Additional Past Anesthesia/Blood Transfusion Reaction / Comment(s): low b/p during one surgery. Daughter = low oxygen and bronchial spasms. Past Psychological History: No Psychological Hx Reported Smoking Status: Current every day smoker Past Alcohol Use History: Occasional Additional Past Alcohol Use History / Comment(s): start smoking 1990-06 ppd Past Drug Use History: None Reported - Past Family History Mother Family Medical History: Hypertension Additional Family Medical History / Comment(s): brain aneurysm Father Additional Family Medical History / Comment(s): suicide Medications and Allergies Home Medications Medication Instructions Recorded Confirmed Type Atorvastatin [Lipitor] 40 mg PO DAILY 01/12/20 08/24/21 History Pantoprazole Sodium [Protonix] 40 mg PO BID 01/12/20 08/24/21 History Adalimumab [Humira(Cf) Pen] 40 mg SQ Q14D 07/09/21 08/24/21 History Montelukast Sodium [Singulair] 10 mg PO DAILY 07/09/21 08/24/21 History Albuterol Inhaler [Ventolin Hfa 1 puff INHALATION RT-TID PRN 08/22/21 08/24/21 History Inhaler] Albuterol Nebulized [Ventolin 1.25 mg INHALATION Q6H 08/22/21 08/24/21 History Nebulized] Fluticasone/Salmeterol [Advair 1 inhalation PO BID 08/22/21 08/24/21 History 100-50 Diskus] Nicotine 21Mg/24Hr Patch [Habitrol] 21 mg SL DAILY 08/24/21 08/24/21 History Allergies Allergy/AdvReac Type Severity Reaction Status Date / Time diphenhydramine Allergy Chest Verified 08/24/21 12:08 [From Benadryl] Pain, anaphylaxis codeine AdvReac migraines Verified 08/24/21 12:08 tramadol HCl [From Ultram] AdvReac migraines Verified 08/24/21 12:08 lactated ringers Allergy Anaphylaxis Uncoded 08/24/21 12:08 Surgical - Exam Vital Signs Temp Pulse Resp BP Pulse Ox 97.9 F 77 18 165/90 99 08/24/21 12:11 08/24/21 12:11 08/24/21 12:11 08/24/21 12:11 08/24/21 12:11 BMI 32.9 - General no distress - Eyes normal ocular movement - ENT no hearing loss - Neck trachea midline - Respiratory normal respiratory effort - Cardiovascular Rhythm: regular Heart Sounds: normal: S1, S2 - Abdomen Abdomen: soft - Integumentary normal turgor - Neurologic no disoriented, no combative - Musculoskeletal normal gait - Psychiatric oriented to time, oriented to person, oriented to place, speech is normal, memory intact Breast Exam: BRA: 40C inspection: Bilateral grade 2 ptosis Palpation: Right breast: Multiple positional exam fibrocystic changes increased nodularity at 12:00 in the area near the mammographic change and ultrasound change Right axilla: No adenopathy of concern Left breast: Multiple positional exam no dominant masses or nodules of concern Left axilla: No adenopathy of concern Results In agreement ultrasound personally reviewed and interpreted Assessment and Plan Assessment: Impression: Radiographic abnormality right breast Palpable change right breast 11 to 12:00 Fibrocystic breast changes Mastodynia with examination Plan: Ultrasound core biopsy right breast Left breast repeat ultrasound in 6 months Follow up after ultrasound core biopsy right breast Risks and benefits of the procedure discussed with the patient. Risks include but are not limited to bleeding, infection, reaction to the anesthetic. The patient understands and wishes to proceed. Cc: Dr. Cem Espino
== END ==
LOC: WWCWWP 11:47
PROVIDERS: ATTEND Surgery
DX: N60.11 Diffuse cystic mastopathy of right breast (principal); F17.210 Nicotine dependence, cigarettes, uncomplicated; J44.9 Chronic obstructive pulmonary disease, unspecified; K21.9 Gastro-esophageal reflux disease without esophagitis; E78.5 Hyperlipidemia, unspecified; Z79.51 Long term (current) use of inhaled steroids; Z79.899 Other long term (current) drug therapy; Z88.6 Allergy status to analgesic agent; Z88.5 Allergy status to narcotic agent; Z88.8 Allergy status to other drugs, medicaments and biological substances

== ENCOUNTER → 2021-08-27 | Day surgery (SDC) | payer OTHER ==
[2021-08-27 12:22] VITALS: RESP 16; TEMP 98.5
[2021-08-27 14:30] VITALS: BP 146/67; PULSE 73
--- NOTE | 2021-08-27 15:37 | USB ---
EXAMINATION TYPE: Right DATE OF EXAM: 08/27/2021 CLINICAL HISTORY: R92.8 Abnormal Mammogram. TECHNIQUE: Ultrasound guided core biopsy of right breast. COMPARISON: Ultrasound dated 08/09/2021 FINDINGS: The procedure of ultrasound guided core biopsy was explained to the patient. Benefits, alt ernatives, and risks were discussed. An informed consent was then obtained. The patient was placed in supine positioning for imaging and for the procedure. The overlying skin w as prepped and draped in usual sterile fashion. Lidocaine was used as anesthetic into the skin and s ubcutaneous tissue up to area of concern in the right breast, 11:00. A jaden was made with surgical s calpel. Under ultrasound guidance, a 12-gauge vacuum assisted biopsy gun device was used to obtain a single c ore sample. Following this, a biopsy clip was left in lesion. Postprocedure mammogram performed of the right breast showing the clip at the level of the lesion The patient tolerated the procedure well without any immediate complication. The patient was kept in the radiology department for short stay after the procedure and then discharged home in stable condi tion. IMPRESSION: Successful, uncomplicated ultrasound guided core biopsy of area of concern in the right b reast 11:00, full pathology results to follow.
== END | disposition home or self-care (01) ==
LOC: RADUSWWP 11:55
PROVIDERS: ATTEND Surgery
DX: D24.1 Benign neoplasm of right breast (principal)
CPT/HCPCS: 88305; 77065; 19083; A4648; J2001

== ENCOUNTER 2021-08-29 09:29 | Day surgery (SDC) | payer OTHER ==
[2021-08-13 09:41] VITALS: BMI 31.1
--- NOTE | 2021-08-29 08:16 | P.GSHP ---
History of Present Illness H&P Date: 08/29/21 CHIEF COMPLAINT: Colon screen HISTORY OF PRESENT ILLNESS: The patient is a 46-year-old female who presents for colon screen. Lower endoscopy was offered for further evaluation and management. PAST MEDICAL HISTORY: Please see list. PAST SURGICAL HISTORY: Please see list. MEDICATIONS: Please see list. ALLERGIES: Please see list. SOCIAL HISTORY: No illicit drug use FAMILY HISTORY: No reports of Crohn disease or ulcerative colitis. REVIEW OF ORGAN SYSTEMS: CONSTITUTIONAL: No reports of fevers or chills. PHYSICAL EXAM: VITAL SIGNS: Stable GENERAL: Well-developed pleasant in no acute distress. HEENT: No scleral icterus. Extraocular movements grossly intact. Moist buccal mucosa. NECK: Supple without lymphadenopathy. CHEST: Unlabored respirations. Equal bilateral excursions. CARDIOVASCULAR: Regular rate and rhythm. Distal 2+ pulses. ABDOMEN: Soft, nontender, nondistended. MUSCULOSKELETAL: No clubbing, cyanosis, or edema. ASSESSMENT: 1. Colon screen. PLAN: 1. Recommend proceeding with a lower endoscopy Past Medical History Past Medical History: Asthma, COPD, GERD/Reflux, Hyperlipidemia, Pneumonia, Skin Disorder Additional Past Medical History / Comment(s): Psoriasis History of Any Multi-Drug Resistant Organisms: None Reported Past Surgical History: Appendectomy, Breast Surgery, Section, Hysterectomy Additional Past Surgical History / Comment(s): MOLES REMOVED BY EYE WITH ANESTHESIA. RT BREAST BX-08/27/21 Past Anesthesia/Blood Transfusion Reactions: Previous Problems w/ Anesthesia, Family History of Problems w/ Anesthesia Additional Past Anesthesia/Blood Transfusion Reaction / Comment(s): low b/p during one surgery. Daughter = low oxygen and bronchial spasms. Smoking Status: Current every day smoker - Past Family History Mother Family Medical History: Hypertension Additional Family Medical History / Comment(s): brain aneurysm Father Additional Family Medical History / Comment(s): suicide Medications and Allergies Home Medications Medication Instructions Recorded Confirmed Type Atorvastatin [Lipitor] 40 mg PO DAILY 01/12/20 08/28/21 History Pantoprazole Sodium [Protonix] 40 mg PO BID 01/12/20 08/28/21 History Adalimumab [Humira(Cf) Pen] 40 mg SQ Q14D 07/09/21 08/28/21 History Montelukast Sodium [Singulair] 10 mg PO DAILY 07/09/21 08/28/21 History Albuterol Inhaler [Ventolin Hfa 1 puff INHALATION RT-TID PRN 08/22/21 08/28/21 History Inhaler] Albuterol Nebulized [Ventolin 1.25 mg INHALATION Q6H 08/22/21 08/28/21 History Nebulized] Fluticasone/Salmeterol [Advair 1 inhalation PO BID 08/22/21 08/28/21 History 100-50 Diskus] Nicotine 21Mg/24Hr Patch [Habitrol] 21 mg SL DAILY 08/24/21 08/28/21 History Allergies Allergy/AdvReac Type Severity Reaction Status Date / Time diphenhydramine Allergy Chest Verified 08/28/21 08:54 [From Benadryl] Pain, anaphylaxis codeine AdvReac migraines Verified 08/28/21 08:54 tramadol HCl [From Ultram] AdvReac migraines Verified 08/28/21 08:54 lactated ringers Allergy Anaphylaxis Uncoded 08/28/21 08:54
[2021-08-29 10:16] VITALS: TEMP 96.9
[2021-08-29] MEDS ORDERED: SODIUM CHLORIDE 0.9% 1,000 ML IV ONE (10:34)
[2021-08-29] MEDS ORDERED: LIDOCAINE 1% INJ 10MG/ML (20 ML MDV) ONE (11:13)
[2021-08-29] MEDS ORDERED: PROPOFOL 10 MG/ML 20 ML VIAL IV ONE (11:13)
--- NOTE | 2021-08-29 11:49 | P.PCN ---
Date of Procedure: 08/29/21 Description of Procedure: PREOPERATIVE DIAGNOSIS: Colonoscopy screening. POSTOPERATIVE DIAGNOSIS: Colonoscopy screening. Diverticulosis, scattered. OPERATION: Colonoscopy to the cecum, ileocecal valve and appendiceal orifice. SURGEON: Thalia Damon MD. ANESTHESIA: MAC. INDICATIONS: The patient is a 46-year-old female who presents for colonoscopy screening. Benefits and risks were described and informed consent was obtained. DESCRIPTION OF PROCEDURE: The patient had undergone Sutab prep. The patient had been brought into the operating room and laid in the left lateral decubitus position. After adequate intravenous sedation, the rectum was examined with 2% lidocaine jelly. No external hemorrhoids were encountered. The rectal tone was within normal limits. No lesions were palpated in the rectal vault. An Olympus colonoscope was advanced until the cecum, ileocecal valve and appendiceal orifice were clearly viewed. The prep was good. Scattered diverticulosis was encountered. No colonic polyps were found. No evidence of focal colitis was found. Retroflexion of the scope demonstrated grade 1 internal hemorrhoids without active bleeding or inflammation. The colon was desufflated. The patient had tolerated the procedure well. Withdrawal time was over 6 minutes. FINDINGS: Aronchick preparation quality scale 2 (1-5) Internal hemorrhoids, grade 1 No external prolapsed hemorrhoids. No arteriovenous malformations. No adenomatous polyps. No focal colitis. RECOMMENDATIONS: Lower endoscopy in 5 years, 2026 Plan - Discharge Summary Discharge Rx Participant: No New Discharge Prescriptions: Continue Atorvastatin [Lipitor] 40 mg PO DAILY Pantoprazole Sodium [Protonix] 40 mg PO BID Montelukast Sodium [Singulair] 10 mg PO DAILY Albuterol Nebulized [Ventolin Nebulized] 1.25 mg INHALATION Q6H Adalimumab [Humira(Cf) Pen] 40 mg SQ Q14D Albuterol Inhaler [Ventolin Hfa Inhaler] 1 puff INHALATION RT-TID PRN PRN Reason: Shortness Of Breath Fluticasone/Salmeterol [Advair 100-50 Diskus] 1 inhalation PO BID Nicotine 21Mg/24Hr Patch [Habitrol] 21 mg SL DAILY Discharge Medication List Atorvastatin [Lipitor] 40 mg PO DAILY 01/12/20 [History] Pantoprazole Sodium [Protonix] 40 mg PO BID 01/12/20 [History] Adalimumab [Humira(Cf) Pen] 40 mg SQ Q14D 07/09/21 [History] Montelukast Sodium [Singulair] 10 mg PO DAILY 07/09/21 [History] Albuterol Inhaler [Ventolin Hfa Inhaler] 1 puff INHALATION RT-TID PRN 08/22/21 [History] Albuterol Nebulized [Ventolin Nebulized] 1.25 mg INHALATION Q6H 08/22/21 [History] Fluticasone/Salmeterol [Advair 100-50 Diskus] 1 inhalation PO BID 08/22/21 [History] Nicotine 21Mg/24Hr Patch [Habitrol] 21 mg SL DAILY 08/24/21 [History] Follow up Appointment(s)/Referral(s): Thalia Damon MD [STAFF PHYSICIAN] - As Needed Patient Instructions/Handouts: *Surgery [facility] - (Anesthesia) Endoscopy Discharge Instructions, Colonoscopy (DC) Activity/Diet/Wound Care/Special Instructions: Repeat colonoscopy in 5 years, 2026 Discharge Disposition: HOME SELF-CARE
[2021-08-29 12:03] VITALS: BP 137/78; PULSE 73; RESP 18
== END 2021-08-29 12:08 | disposition home or self-care (01) ==
LOC: ORWHC2ENDO 09:29
PROVIDERS: ATTEND Surgery Plastic and Reconstructive Surgery
DX: Z12.11 Encounter for screening for malignant neoplasm of colon (principal); K57.30 Diverticulosis of large intestine without perforation or abscess without bleeding; K64.0 First degree hemorrhoids; J44.9 Chronic obstructive pulmonary disease, unspecified; K21.9 Gastro-esophageal reflux disease without esophagitis; E78.5 Hyperlipidemia, unspecified; Z87.01 Personal history of pneumonia (recurrent); L40.9 Psoriasis, unspecified; Z98.891 History of uterine scar from previous surgery; Z90.49 Acquired absence of other specified parts of digestive tract; Z90.710 Acquired absence of both cervix and uterus; Z98.890 Other specified postprocedural states; F17.290 Nicotine dependence, other tobacco product, uncomplicated; Z82.49 Family history of ischemic heart disease and other diseases of the circulatory system; Z79.4 Long term (current) use of insulin; Z79.899 Other long term (current) drug therapy; Z88.5 Allergy status to narcotic agent; Z88.8 Allergy status to other drugs, medicaments and biological substances
CPT/HCPCS: J2001; J2704; G0121

== ENCOUNTER → 2021-09-13 | Outpatient (CLI) | payer OTHER ==
[2021-09-13 09:34] VITALS: BP 127/87; PULSE 91; RESP 17; TEMP 98.7
--- NOTE | 2021-09-13 10:24 | P.PN ---
Progress Note - Text Progress Note Date: 09/13/21 Mica is a 46-year-old white female status post ultrasound-guided core biopsy of the right breast on 3722. Pathology revealed a fibroadenoma and this was benign concordant. She tolerated the procedure without difficulty. Physical examination: Lungs: Few scattered rhonchi Heart: Regular rate and rhythm Biopsy site right breast clean and dry no evidence of infection or hematoma Impression: Biopsy-proven fibroadenoma right breast asymptomatic Plan: Repeat bilateral breast ultrasound in 6 months At this time the patient does not want to have surgery if not necessary. She understands that fibroadenomas can request, increase in size, or stable same. His lungs this stays the same she is comfortable to be have a followed conservatively. CC: Dr. Cem Espino
== END ==
LOC: WWCWWP 09:10
PROVIDERS: ATTEND Surgery
DX: R92.8 Other abnormal and inconclusive findings on diagnostic imaging of breast (principal); D24.1 Benign neoplasm of right breast; Z88.8 Allergy status to other drugs, medicaments and biological substances; Z88.5 Allergy status to narcotic agent

== ENCOUNTER → 2021-11-05 | Outpatient (CLI) | payer OTHER ==
--- NOTE | 2021-11-06 05:55 | MR ---
EXAMINATION TYPE: MR ankle LT wo/w con DATE OF EXAM: 11/05/2021 COMPARISON: None HISTORY: Lt ankle pain, swelling x 2 years CONTRAST: Standard multiplanar, multisequence MRI departmental protocol images were obtained without contrast a nd with 8 mL intravenous Gadavist gadolinium contrast. Multiplanar multi echo imaging of the left ankle without and with IV contrast. The ankle mortise is anatomic. No evidence of bone edema. No fracture. Subtalar joint is intact. Ther e is a mild ankle joint effusion and subtalar effusion. There is also mild increased fluid at the tarsometatarsal joints. The collateral ligaments appear intact. There is minimal subcutaneous edema on the medial malleolus. The plantar fascia appears normal. Achilles tendon is intact. The medial and lateral flexor tendons appear intact. No focal bone destruction. The contrast images s how no pathologic enhancement. Joint spaces are fairly normal. IMPRESSION: There is ankle joint effusion and effusion of the intertarsal joints consistent with some nonspecific synovitis. No evidence of ligament or tendon tear. No fracture.
== END | disposition home or self-care (01) ==
LOC: RADMRIMAIN 14:01
PROVIDERS: ATTEND Podiatrist Foot & Ankle Surgery
DX: M25.472 Effusion, left ankle (principal)
CPT/HCPCS: 73723; A9585

== ENCOUNTER 2022-01-09 18:51 | Emergency (ER) | payer OTHER ==
[2022-01-09] MEDS ORDERED: AMOXIC-POT CLAV 875-125MG 1 EACH TAB PO STA (19:26)
[2022-01-09] MEDS ORDERED: predniSONE 50 MG TAB PO STA (19:27)
--- NOTE | 2022-01-09 19:31 | ED ---
ENT HPI - General Chief complaint: ENT Stated complaint: LT ear pain Time Seen by Provider: 01/09/22 19:07 Source: patient Mode of arrival: ambulatory Limitations: no limitations - History of Present Illness Initial comments: Patient is a 46-year-old female who presents to the emergency department with a chief complaint of left ear pain. Patient states she finished 10 days of amoxicillin 2 days ago for sinus infection with left ear infection. Patient states the pain is not getting better. She denies pain in the jaw or behind the ear. Denies fever and chills. Reports consistent pressure in the ear with ear popping and ringing. - Related Data Home Medications Medication Instructions Recorded Confirmed Atorvastatin [Lipitor] 40 mg PO DAILY 01/12/20 09/13/21 Pantoprazole Sodium [Protonix] 40 mg PO BID 01/12/20 09/13/21 Adalimumab [Humira(Cf) Pen] 40 mg SQ Q14D 07/09/21 09/13/21 Montelukast Sodium [Singulair] 10 mg PO DAILY 07/09/21 09/13/21 Albuterol Inhaler [Ventolin Hfa 1 puff INHALATION RT-TID PRN 08/22/21 09/13/21 Inhaler] Albuterol Nebulized [Ventolin 1.25 mg INHALATION Q6H 08/22/21 09/13/21 Nebulized (Accuneb)] Fluticasone Propion/Salmeterol 1 inhalation PO BID 08/22/21 09/13/21 [Advair 100-50 Diskus] Nicotine 21Mg/24Hr Patch [Habitrol] 21 mg SL DAILY 08/24/21 09/13/21 Previous Rx's Medication Instructions Recorded Amoxic-Pot Clav 875-125Mg 1 tab PO BID 1 Days #14 tab 01/09/22 [Augmentin 875-125] predniSONE 50 mg PO DAILY #5 tab 01/09/22 Allergies Allergy/AdvReac Type Severity Reaction Status Date / Time diphenhydramine Allergy Chest Verified 01/09/22 18:54 [From Benadryl] Pain, anaphylaxis codeine AdvReac migraines Verified 01/09/22 18:54 tramadol HCl [From Ultram] AdvReac migraines Verified 01/09/22 18:54 lactated ringers Allergy Anaphylaxis Uncoded 01/09/22 18:54 Review of Systems ROS Statement: Those systems with pertinent positive or pertinent negative responses have been documented in the HPI. ROS Other: All systems not noted in ROS Statement are negative. Past Medical History Past Medical History: Asthma, COPD, GERD/Reflux, Hyperlipidemia, Pneumonia, Skin Disorder Additional Past Medical History / Comment(s): Psoriasis History of Any Multi-Drug Resistant Organisms: None Reported Past Surgical History: Appendectomy, Breast Surgery, Section, Hysterectomy Additional Past Surgical History / Comment(s): MOLES REMOVED BY EYE WITH ANESTHESIA. RT BREAST BX-08/27/21 Past Anesthesia/Blood Transfusion Reactions: Previous Problems w/ Anesthesia, Family History of Problems w/ Anesthesia Additional Past Anesthesia/Blood Transfusion Reaction / Comment(s): low b/p during one surgery. Daughter = low oxygen and bronchial spasms. Past Psychological History: No Psychological Hx Reported Smoking Status: Current every day smoker Past Alcohol Use History: Occasional Past Drug Use History: None Reported - Past Family History Mother Family Medical History: Hypertension Additional Family Medical History / Comment(s): brain aneurysm Father Additional Family Medical History / Comment(s): suicide General Exam Limitations: no limitations Head exam: Present: atraumatic, normocephalic, normal inspection Eye exam: Present: normal appearance, PERRL, EOMI. Absent: scleral icterus, conjunctival injection, periorbital swelling ENT exam: Present: normal external ear exam. Absent: TM's normal bilaterally (left ear: mild erythema and bulging ) Respiratory exam: Present: normal lung sounds bilaterally. Absent: respiratory distress, wheezes, rales, rhonchi, stridor Cardiovascular Exam: Present: regular rate, normal rhythm, normal heart sounds. Absent: systolic murmur, diastolic murmur, rubs, gallop, clicks Neurological exam: Present: alert, oriented X3, CN II-XII intact Psychiatric exam: Present: normal affect, normal mood Skin exam: Present: warm, dry, intact, normal color. Absent: rash Course Vital Signs 01/09/22 01/09/22 18:52 19:45 Temperature 99.1 F 98.7 F Pulse Rate 100 83 Respiratory 20 16 Rate Blood Pressure 185/88 174/92 O2 Sat by Pulse 98 98 Oximetry Medical Decision Making - Medical Decision Making This is a 46-year-old female who recently finished amoxicillin for acute otitis media presenting with persistent left ear pain. Thorough history and examination were performed. There is mild erythema and bulging of the left tympanic membrane. Patient will be discharged with Augmentin for acute otitis media. I'll also send her home with prednisone for eustachian tube dysfunction, likely due to inflammation. Patient to follow-up with ENT specialist in 3 days if her symptoms do not improve. Dr. Guerrero is my attending. Disposition Clinical Impression: Acute otitis media Disposition: HOME SELF-CARE Condition: Good Instructions (If sedation given, give patient instructions): Earache (ED) Additional Instructions: Take medication as directed. If your symptoms do not improve in 3 days please schedule an appointment with ENT specialist. Your blood pressure is likely elevated due to pain today .Please recheck your blood pressure at home and follow up with primary care provider. Return to the emergency department if you experience new, concerning, or worsening symptoms. Prescriptions: Amoxic-Pot Clav 875-125Mg [Augmentin 875-125] 1 tab PO BID 1 Days #14 tab predniSONE 50 mg PO DAILY #5 tab Is patient prescribed a controlled substance at d/c from ED?: No Referrals: Cem Espino MD [Primary Care Provider] - 1-2 days Crow Dunne MD [STAFF PHYSICIAN] - 1-2 days Time of Disposition: 19:31
[2022-01-09 19:48] VITALS: BP 174/92; PULSE 83; RESP 16; TEMP 98.7
== END 2022-01-09 19:51 | disposition home or self-care (01) ==
LOC: EC 18:51
DX: H66.92 Otitis media, unspecified, left ear (principal); J44.9 Chronic obstructive pulmonary disease, unspecified; K21.9 Gastro-esophageal reflux disease without esophagitis; E78.5 Hyperlipidemia, unspecified; F17.200 Nicotine dependence, unspecified, uncomplicated; Z79.51 Long term (current) use of inhaled steroids; Z88.8 Allergy status to other drugs, medicaments and biological substances; Z88.5 Allergy status to narcotic agent; Z88.6 Allergy status to analgesic agent; Z88.3 Allergy status to other anti-infective agents
CPT/HCPCS: 99283; J7512

== ENCOUNTER 2022-01-30 17:17 | Emergency (ER) | payer OTHER ==
[2022-01-30 18:01] VITALS: TEMP 98.3
--- NOTE | 2022-01-30 18:33 | XR ---
EXAMINATION TYPE: XR wrist complete RT DATE OF EXAM: 01/30/2022 6:13 PM INDICATION: Patient age:Female; 46 years old; Reason for study: injury; COMPARISON: 03/12/2021 contralateral wrist. TECHNIQUE: 4 views of the right wrist. Frontal, navicular, lateral, and oblique. FINDINGS: No acute osseous pathology, joint dislocation, or joint effusion. No evidence of any soft tissue swelling is seen. IMPRESSION: No acute osseous pathology.
[2022-01-30 19:54] VITALS: BP 149/90; PULSE 75; RESP 16
--- NOTE | 2022-01-30 19:56 | ED ---
Upper Extremity HPI - General Chief Complaint: Extremity Injury, Upper Stated Complaint: hurt wrist at work Time Seen by Provider: 01/30/22 19:37 Source: patient, RN notes reviewed Mode of arrival: ambulatory Limitations: no limitations - History of Present Illness Initial Comments: This is a 46-year-old female who presents to the emergency department for right wrist pain. 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 She is right-handed. States that over the last 1-2 days, she is having severe pain in the wrist and over the right thumb. The pain did initially start when she was at work. She is having difficulty moving it due to the pain. States that she believes this is related to a tendon and is hoping to have the wrist wrapped. Denies any fevers, chills, sore throat, cough, dyspnea, chest pain, palpitations, abdominal pain, nausea, vomiting, diarrhea, back pain, or headaches. MD Complaint: Injury to:: right, wrist, hand Onset/Timin -: days(s) Handedness: right Place: work Improves With: immobilization Worsens With: movement of extremity - Related Data Home Medications Medication Instructions Recorded Confirmed Atorvastatin [Lipitor] 40 mg PO DAILY 01/12/20 09/13/21 Pantoprazole Sodium [Protonix] 40 mg PO BID 01/12/20 09/13/21 Adalimumab [Humira(Cf) Pen] 40 mg SQ Q14D 07/09/21 09/13/21 Montelukast Sodium [Singulair] 10 mg PO DAILY 07/09/21 09/13/21 Albuterol Inhaler [Ventolin Hfa 1 puff INHALATION RT-TID PRN 08/22/21 09/13/21 Inhaler] Albuterol Nebulized [Ventolin 1.25 mg INHALATION Q6H 08/22/21 09/13/21 Nebulized (Accuneb)] Fluticasone Propion/Salmeterol 1 inhalation PO BID 08/22/21 09/13/21 [Advair 100-50 Diskus] Nicotine 21Mg/24Hr Patch [Habitrol] 21 mg SL DAILY 08/24/21 09/13/21 Previous Rx's Medication Instructions Recorded Amoxic-Pot Clav 875-125Mg 1 tab PO BID 1 Days #14 tab 01/09/22 [Augmentin 875-125] predniSONE 50 mg PO DAILY #5 tab 01/09/22 Acetaminophen-Codeine 300-30mg 1 tab PO Q6H PRN 3 Days #12 tablet 01/30/22 [Tylenol w/codeine #3] Allergies Allergy/AdvReac Type Severity Reaction Status Date / Time diphenhydramine Allergy Chest Verified 01/30/22 18:01 [From Benadryl] Pain, anaphylaxis codeine AdvReac migraines Verified 01/30/22 18:01 tramadol HCl [From Ultram] AdvReac migraines Verified 01/30/22 18:01 lactated ringers Allergy Anaphylaxis Uncoded 01/30/22 18:01 Review of Systems ROS Statement: Those systems with pertinent positive or pertinent negative responses have been documented in the HPI. ROS Other: All systems not noted in ROS Statement are negative. Past Medical History Past Medical History: Asthma, COPD, GERD/Reflux, Hyperlipidemia, Pneumonia, Skin Disorder Additional Past Medical History / Comment(s): Psoriasis History of Any Multi-Drug Resistant Organisms: None Reported Past Surgical History: Appendectomy, Breast Surgery, Section, Hysterectomy Additional Past Surgical History / Comment(s): MOLES REMOVED BY EYE WITH ANESTHESIA. RT BREAST BX-08/27/21 Past Anesthesia/Blood Transfusion Reactions: Previous Problems w/ Anesthesia, Family History of Problems w/ Anesthesia Additional Past Anesthesia/Blood Transfusion Reaction / Comment(s): low b/p during one surgery. Daughter = low oxygen and bronchial spasms. Past Psychological History: No Psychological Hx Reported Smoking Status: Current every day smoker Past Alcohol Use History: Occasional Past Drug Use History: None Reported - Past Family History Mother Family Medical History: Hypertension Additional Family Medical History / Comment(s): brain aneurysm Father Additional Family Medical History / Comment(s): suicide General Exam Limitations: no limitations General appearance: alert, in no apparent distress Head exam: Present: atraumatic, normocephalic, normal inspection Respiratory exam: Present: normal lung sounds bilaterally. Absent: respiratory distress, wheezes, rales, rhonchi, stridor Cardiovascular Exam: Present: regular rate, normal rhythm, normal heart sounds. Absent: systolic murmur, diastolic murmur, rubs, gallop, clicks Extremities exam: Present: other (Positive Lis test on the right. Pain with active and passive range of motion of the right thumb. No overlying erythema or swelling. 2+ radial pulses bilaterally and capillary refill less than 1 second.) Neurological exam: Present: alert, oriented X3, CN II-XII intact Psychiatric exam: Present: normal affect, normal mood Skin exam: Present: warm, dry, intact, normal color. Absent: rash Course Vital Signs 01/30/22 01/30/22 17:58 19:53 Temperature 98.3 F Pulse Rate 81 75 Respiratory 20 16 Rate Blood Pressure 161/84 149/90 O2 Sat by Pulse 100 99 Oximetry Medical Decision Making - Medical Decision Making This is a 46-year-old female who presents to the emergency department for right wrist pain. X-rays revealed no acute osseous abnormalities. Physical exam findings and the patient's symptoms are consistent with de Quervain's tenosynovitis. Patient's hand and wrist were wrapped with an Eusebio bandage. Discussed that she can also purchase a brace [id number]. 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 Prescription for Tylenol #3 was provided. Advise she apply ice for additional pain relief. She is also instructed to rest the hand and wrist for the next several days, as this is often an overuse injury. Return precautions reviewed in depth, the patient is instructed to return to the emergency department with any new, worsening, or concerning symptoms. Patient verbalized understanding. This case was discussed in detail with the attending ED physician. Presentation, findings, and treatment plan discussed in detail as well. - Radiology Data Radiology results: report reviewed, image reviewed Disposition Clinical Impression: De Quervain's tenosynovitis, right Disposition: HOME SELF-CARE Instructions (If sedation given, give patient instructions): De Quervain Disease (ED), Tenosynovitis (ED) Additional Instructions: Return to the emergency department with any new, worsening, or concerning symptoms. Keep the wrist wrapped with an Eusebio bandage or an [id number] brace and avoid repetitive movements. Take the Tylenol #3 as needed for pain. Apply ice as needed for pain relief as well. Prescriptions: Acetaminophen-Codeine 300-30mg [Tylenol w/codeine #3] 1 tab PO Q6H PRN 3 Days #12 tablet PRN Reason: Pain Is patient prescribed a controlled substance at d/c from ED?: Yes When asked, does pt state using other controlled substances?: No If prescribed controlled substance>3 days was MAPS reviewed?: Prescribed <3 Days Referrals: Cem Espino MD [Primary Care Provider] - 1-2 days
== END 2022-01-30 20:05 | disposition home or self-care (01) ==
LOC: EC 17:17
DX: S63.501A Unspecified sprain of right wrist, initial encounter (principal); J44.9 Chronic obstructive pulmonary disease, unspecified; K21.9 Gastro-esophageal reflux disease without esophagitis; E78.5 Hyperlipidemia, unspecified; F17.200 Nicotine dependence, unspecified, uncomplicated; Z79.51 Long term (current) use of inhaled steroids; Z79.899 Other long term (current) drug therapy; Z88.8 Allergy status to other drugs, medicaments and biological substances; Z88.5 Allergy status to narcotic agent; X50.0XXA Overexertion from strenuous movement or load, initial encounter; Y99.0 Civilian activity done for income or pay
CPT/HCPCS: 99283

== ENCOUNTER 2022-02-17 23:03 | Emergency (ER) | payer OTHER ==
[2022-02-17] MEDS ORDERED: HYDROmorphone 0.5 MG/0.5 ML SYRINGE IVP STA (23:54)
[2022-02-17] MEDS ORDERED: SODIUM CHLORIDE 0.9% 1,000 ML IV STA (23:54)
[2022-02-17] MEDS ORDERED: ONDANSETRON 4 MG/2 ML VIAL IVP STA (23:54)
[2022-02-17 23:59] LABS: Basophils # (A) 0.1 k/uL (0-0.2); Basophils % (A) 1 %; Eosinophils # (A) 0.2 k/uL (0-0.7); Eosinophils % (A) 2 %; HGB 15.4 gm/dL (11.4-16.0); Lymphocytes # (A) 5.2 k/uL (1.0-4.8); Lymphocytes % (A) 50 %; MCH 32.9 pg (25.0-35.0); MCHC 32.7 g/dL (31.0-37.0); MCV 100.8 fL (80.0-100.0); Mean Platelet Volume 7.2; Monocytes # (A) 0.7 k/uL (0-1.0); Monocytes % (A) 7 %; Neutrophils % (A) 39 %; Platelet Count 284 k/uL (150-450); RBC 4.66 m/uL (3.80-5.40); RDW 12.9 % (11.5-15.5); WBC 10.3 k/uL (3.8-10.6)
--- NOTE | 2022-02-17 23:59 | ED ---
General Adult HPI - General Chief complaint: Back Pain/Injury Stated complaint: Back Pain Time Seen by Provider: 02/17/22 23:33 Source: patient Mode of arrival: ambulatory Limitations: no limitations - History of Present Illness Initial comments: 46-year-old female presents to the emergency Department with complaints of right low back pain that radiates to the right flank and groin, onset this evening. Patient states her symptoms are accompanied by nausea, but no vomiting. Reports inability to sit still or lay down. States she was working in her garden yesterday and had some low back soreness this morning, however reports this discomfort is worsening. No history of kidney stones. Denies fever, chills, headache, dizziness, chest pain, shortness of breath, vomiting, diarrhea, dysuria, or hematuria. - Related Data Home Medications Medication Instructions Recorded Confirmed Atorvastatin [Lipitor] 40 mg PO DAILY 01/12/20 09/13/21 Pantoprazole Sodium [Protonix] 40 mg PO BID 01/12/20 09/13/21 Adalimumab [Humira(Cf) Pen] 40 mg SQ Q14D 07/09/21 09/13/21 Montelukast Sodium [Singulair] 10 mg PO DAILY 07/09/21 09/13/21 Albuterol Inhaler [Ventolin Hfa 1 puff INHALATION RT-TID PRN 08/22/21 09/13/21 Inhaler] Albuterol Nebulized [Ventolin 1.25 mg INHALATION Q6H 08/22/21 09/13/21 Nebulized (Accuneb)] Fluticasone Propion/Salmeterol 1 inhalation PO BID 08/22/21 09/13/21 [Advair 100-50 Diskus] Nicotine 21Mg/24Hr Patch [Habitrol] 21 mg SL DAILY 08/24/21 09/13/21 Previous Rx's Medication Instructions Recorded Amoxic-Pot Clav 875-125Mg 1 tab PO BID 1 Days #14 tab 01/09/22 [Augmentin 875-125] predniSONE 50 mg PO DAILY #5 tab 01/09/22 Acetaminophen-Codeine 300-30mg 1 tab PO Q6H PRN 3 Days #12 tablet 01/30/22 [Tylenol w/codeine #3] Cyclobenzaprine [Flexeril] 10 mg PO TID PRN #15 tab 02/18/22 Ibuprofen [Motrin] 600 mg PO Q8HR PRN #30 tab 02/18/22 Allergies Allergy/AdvReac Type Severity Reaction Status Date / Time diphenhydramine Allergy Chest Verified 02/17/22 23:09 [From Benadryl] Pain, anaphylaxis codeine AdvReac migraines Verified 02/17/22 23:09 tramadol HCl [From Ultram] AdvReac migraines Verified 02/17/22 23:09 lactated ringers Allergy Anaphylaxis Uncoded 01/30/22 18:01 Review of Systems ROS Statement: Those systems with pertinent positive or pertinent negative responses have been documented in the HPI. ROS Other: All systems not noted in ROS Statement are negative. Past Medical History Past Medical History: Asthma, COPD, GERD/Reflux, Hyperlipidemia, Pneumonia, Skin Disorder Additional Past Medical History / Comment(s): Psoriasis History of Any Multi-Drug Resistant Organisms: None Reported Past Surgical History: Appendectomy, Breast Surgery, Section, Hysterectomy Additional Past Surgical History / Comment(s): MOLES REMOVED BY EYE WITH A NESTHESIA. RT BREAST BX-08/27/21 Past Anesthesia/Blood Transfusion Reactions: Previous Problems w/ Anesthesia, Family History of Problems w/ Anesthesia Additional Past Anesthesia/Blood Transfusion Reaction / Comment(s): low b/p during one surgery. Daughter = low oxygen and bronchial spasms. Past Psychological History: No Psychological Hx Reported Smoking Status: Current every day smoker Past Alcohol Use History: Occasional Past Drug Use History: None Reported - Past Family History Mother Family Medical History: Hypertension Additional Family Medical History / Comment(s): brain aneurysm Father Additional Family Medical History / Comment(s): suicide General Exam Limitations: no limitations General appearance: alert, in no apparent distress (Well-developed, well-nou rished female appears moderately uncomfortable. Initial temperature 98.4, pulse 90, respirations 18, blood pressure 161/101, pulse ox 100% on room air.) ENT exam: Present: normal exam, normal oropharynx, mucous membranes moist Respiratory exam: Present: normal lung sounds bilaterally. Absent: respiratory distress, wheezes, rales, rhonchi, stridor Cardiovascular Exam: Present: regular rate, normal rhythm, normal heart sounds. Absent: systolic murmur, diastolic murmur, rubs, gallop, clicks GI/Abdominal exam: Present: soft, normal bowel sounds. Absent: distended, tenderness, guarding, rebound, rigid Extremities exam: Present: normal inspection, full ROM, normal capillary refill. Absent: tenderness, pedal edema, joint swelling, calf tenderness Back exam: Present: normal inspection, full ROM, CVA tenderness (R), muscle spasm. Absent: vertebral tenderness Expanded Back exam: Absent: saddle anesthesia Back exam: Negative Straight Leg Raising: Left, Right Neurological exam: Present: alert, oriented X3, CN II-XII intact Psychiatric exam: Present: anxious Skin exam: Present: warm, dry, intact, normal color. Absent: rash Course Vital Signs 02/17/22 02/18/22 23:06 02:34 Temperature 98.4 F 98 F Pulse Rate 90 87 Respiratory 18 20 Rate Blood Pressure 161/101 137/87 O2 Sat by Pulse 100 97 Oximetry - Reevaluation(s) Reevaluation #1: 02/18/22 01:15 Upon reassessment, patient continues to be restless and uncomfortable. Reports minimal improvement in pain though is able to move more freely. She will be given additional dose of pain medicine and muscle relaxer, then will reassess. 02/18/22 02:02 Patient is resting more comfortable in the bed. Able to extend legs straight without difficulty. Does have discomfort with repositioning to standing. She expresses readiness for discharge. Medical Decision Making - Medical Decision Making 46-year-old female presents to the emergency Department with complaints of low back pain that radiates to the right flank and groin. Upon initial exam, patient appears quite uncomfortable and is restless. Patient has pain with repositioning from sitting to standing; no tenderness upon palpation of the abdomen. IV access was obtained and patient was given Dilaudid, Zofran, and IV fluids with minimal improvement. Laboratory studies were obtained showing small amount of blood in the urine with 8 urine RBCs per HPF and [address] was obtained and was negative for stone. Toradol and Norflex then administered with modest improvement. Given these findings, it is likely that this pain is related to muscle strain, possibly lumbar radiculopathy. No red flag findings. She will be prescribed anti-inflammatory and muscle relaxer. Instructed to rest and minimize exertional activity. Provided with a note for work. Encouraged to follow up with her PCP for a recheck this week. Return parameters were discussed in detail. Patient verbalizes understanding and agrees with this plan. Attending: Navya. - Lab Data Result diagrams: 02/17/22 23:37 02/17/22 23:37 Lab Results 02/17/22 02/17/22 02/17/22 Range/Units 23:21 23:37 23:37 WBC 10.3 (3.8-10.6) k/uL RBC 4.66 (3.80-5.40) m/uL Hgb 15.4 (11.4-16.0) gm/dL Hct 47.0 H (34.0-46.0) % MCV 100.8 H (80.0-100.0) fL MCH 32.9 (25.0-35.0) pg MCHC 32.7 (31.0-37.0) g/dL RDW 12.9 (11.5-15.5) % Plt Count 284 (150-450) k/uL MPV 7.2 Neutrophils % 39 % Lymphocytes % 50 % Monocytes % 7 % Eosinophils % 2 % Basophils % 1 % Neutrophils # 4.0 (1.3-7.7) k/uL Lymphocytes # 5.2 H (1.0-4.8) k/uL Monocytes # 0.7 (0-1.0) k/uL Eosinophils # 0.2 (0-0.7) k/uL Basophils # 0.1 (0-0.2) k/uL Sodium 140 (137-145) mmol/L Potassium 3.8 (3.5-5.1) mmol/L Chloride 104 (98-107) mmol/L Carbon Dioxide 25 (22-30) mmol/L Anion Gap 11 mmol/L BUN 21 H (7-17) mg/dL Creatinine 0.86 (0.52-1.04) mg/dL Est GFR (CKD-EPI)AfAm >90 (>60 ml/min/1.73 sqM) Est GFR (CKD-EPI)NonAf 81 (>60 ml/min/1.73 sqM) Glucose 92 (74-99) mg/dL Calcium 9.6 (8.4-10.2) mg/dL Total Bilirubin 0.4 (0.2-1.3) mg/dL AST 20 (14-36) U/L ALT 21 (4-34) U/L Alkaline Phosphatase 103 (38-126) U/L Total Protein 6.9 (6.3-8.2) g/dL Albumin 4.2 (3.5-5.0) g/dL Urine Color Yellow Urine Appearance Clear (Clear) Urine pH 6.5 (5.0-8.0) Ur Specific [place] 1.019 (1.001-1.035) Urine Protein Negative (Negative) Urine Glucose (UA) Negative (Negative) Urine Ketones Negative (Negative) Urine Blood Small H (Negative) Urine Nitrite Negative (Negative) Urine Bilirubin Negative (Negative) Urine Urobilinogen <2.0 (<2.0) mg/dL Ur Leukocyte Esterase Negative (Negative) Urine RBC 8 H (0-5) /hpf Urine WBC 2 (0-5) /hpf Ur Squamous Epith Cells 1 (0-4) /hpf Amorphous Sediment Occasional H (None) /hpf Urine Mucus Rare H (None) /hpf - Radiology Data Radiology results: report reviewed, image reviewed CT of the abdomen and pelvis without contrast was obtained. Report was reviewed in its entirety. Impression per Dr. Jean Baptiste is no evidence of renal stone or obstruction. There is sigmoid diverticulosis without diverticulitis. Disposition Clinical Impression: Strain of lumbar region Disposition: HOME SELF-CARE Condition: Stable Instructions (If sedation given, give patient instructions): Acute Low Back Pain (ED) Additional Instructions: Take anti-inflammatory pain medication if needed for discomfort. Flexeril is a medication used to treat muscle spasms. These medicines may be taken together. Rest and take it easy the next 48 hours. Minimize lifting, bending, or twisting. Avoid vigorous or strenuous activity. Follow-up with your PCP for a recheck in 3-5 days. Return to the emergency department with any new, worsening, or concerning symptoms. Prescriptions: Cyclobenzaprine [Flexeril] 10 mg PO TID PRN #15 tab PRN Reason: Muscle Spasm Ibuprofen [Motrin] 600 mg PO Q8HR PRN #30 tab PRN Reason: Pain Is patient prescribed a controlled substance at d/c from ED?: No Referrals: Cem Espino MD [Primary Care Provider] - 1-2 days Time of Disposition: 02:25
[2022-02-18 00:06] LABS: Amorphous Sediment,Urine Occasional /hpf; Appearance,Urine Clear (Clear); Bilirubin,Urine Negative (Negative); Blood,Urine Small (Negative); Color,Urine Yellow; Glucose,Urine (UA) Negative (Negative); Ketones,Urine Negative (Negative); Leukocyte Esterase,Urine Negative (Negative); Mucus,Urine Rare /hpf; Nitrite,Urine Negative (Negative); PH, Urine 6.5 (5.0-8.0); Protein,Urine Negative (Negative); RBC,Urine 8 /hpf (0-5); Specific Gravity,Urine 1.019 (1.001-1.035); Squamous Epithelial Cell,Urine 1 /hpf (0-4); Urobilinogen,Urine <2.0 mg/dL (<2.0); WBC,Urine 2 /hpf (0-5)
[2022-02-18 00:08] LABS: ALT 21 U/L (4-34); AST 20 U/L (14-36); African American GFR (CKD) >90 (>60 ml/min/1.73 sqM); Albumin 4.2 g/dL (3.5-5.0); Alkaline Phosphatase 103 U/L (38-126); Anion Gap 11 mmol/L; Blood Urea Nitrogen 21 mg/dL (7-17); Calcium 9.6 mg/dL (8.4-10.2); Carbon Dioxide 25 mmol/L (22-30); Chloride 104 mmol/L (98-107); Glucose 92 mg/dL (74-99); Non-African American GFR(CKD) 81 (>60 ml/min/1.73 sqM); Potassium 3.8 mmol/L (3.5-5.1); Sodium 140 mmol/L (137-145); Total Bilirubin 0.4 mg/dL (0.2-1.3); Total Protein 6.9 g/dL (6.3-8.2)
--- NOTE | 2022-02-18 00:51 | CT ---
EXAMINATION TYPE: CT abdomen pelvis wo con DATE OF EXAM: 02/18/2022 COMPARISON: None HISTORY: rt flank pain CT DLP: 632.2 mGycm Automated exposure control for dose reduction was used. Images obtained from the diaphragm to the floor the pelvis with no contrast. Lung bases are clear. No pleural effusion. Heart size is normal. No pericardial effusion. Liver splee n and stomach pancreas gallbladder appear normal. The bile ducts are not dilated. There is no adrenal mass. Kidneys have normal size and contour. No hydronephrosis. Ureters are not di lated. No retroperitoneal adenopathy. There are clips apparently from appendectomy. Appendix not seen . No evidence of a renal stone. Bladder distends smoothly. No inguinal hernia. No free fluid in the p jung. No pelvic mass. There are multiple sigmoid diverticula. No diverticulitis. There is no mesenteric edema. No ascites or free air. No sign of a bowel obstruction. The lumbar vertebrae have normal spacing and alignment. No compression fracture. Posterior elements a re intact. The hip joints are intact. Bony pelvis is intact. IMPRESSION: No evidence of renal stone or obstruction. There is sigmoid diverticulosis without diverticulitis.
[2022-02-18] MEDS ORDERED: KETOROLAC 15 MG/ML 1 ML VIAL IVP STA (01:21)
[2022-02-18] MEDS ORDERED: ORPHENADRINE 30 MG/ML 2 ML VIAL IVP STA (01:21)
[2022-02-18 02:35] VITALS: BP 137/87; PULSE 87; RESP 20; TEMP 98
== END 2022-02-18 02:35 | disposition home or self-care (01) ==
LOC: EC 23:03
DX: S39.012A Strain of muscle, fascia and tendon of lower back, initial encounter (principal); J45.909 Unspecified asthma, uncomplicated; J44.9 Chronic obstructive pulmonary disease, unspecified; K21.9 Gastro-esophageal reflux disease without esophagitis; E78.5 Hyperlipidemia, unspecified; F17.200 Nicotine dependence, unspecified, uncomplicated; Z88.8 Allergy status to other drugs, medicaments and biological substances; Z88.5 Allergy status to narcotic agent; Z88.3 Allergy status to other anti-infective agents; Z79.51 Long term (current) use of inhaled steroids; Z79.899 Other long term (current) drug therapy; X50.9XXA Other and unspecified overexertion or strenuous movements or postures, initial encounter; Y93.H2 Activity, gardening and landscaping
CPT/HCPCS: 36415; 80053; 85025; 81001; 74176; 99284; 96374; 96375 ×3; 96361; J2360; J2405; J1885; J1170

== ENCOUNTER → 2022-03-15 | Outpatient (CLI) | payer OTHER ==
--- NOTE | 2022-03-15 09:55 | USB ---
Reason for Exam: Follow-up at short interval from prior study. Patient History: Menarche at age 15. First Full-Term at age 17. Hysterectomy at age 22. 08/27/2021, Benign Core Biopsy on the right side. Risk Values: Venita 5 year model risk: 0.8%. NCI Lifetime model risk: 7.3%. Prior Study Comparison: 09/21/2014 Bilateral Diagnostic Mammogram, [facility]. 08/07/2021 Bilateral Screening Mammogram, [facility]. 08/27/2021 Right Diagnostic Mammogram, [facility]. Findings: The area of palpable concern of both breasts, the axilla of both breasts and the retroareolar of both breasts were scanned. Limited right breast ultrasound includes radial 11:00 position with retroareolar and axillary. Finding demonstrates a 1.8 x 0.9 x 1.9 cm solid, hypoechoic, circumscribed, lesion at 11 o'clock. This is unchanged from prior examination and has been biopsied with pathology demonstrating a fibroadenoma. Limited left breast ultrasound loops radial 2:00 and 3:00 positions with retroareolar and axillary. Finding demonstrates a 0.9 x 0.5 x 1.1 cm mixed lesion at 2 o'clock 8 cm from the nipple, possible cyst cluster or this is unchanged from prior examination. And a 0.5 x 0.7 x 0.4 cm hypoechoic lesion, possible node at 3 o'clock. This is stable from prior examination. Limited right breast ultrasound includes radial 11:00 position with retroareolar and axillary. Finding demonstrates a 1.8 x 0.9 x 1.9 cm solid, hypoechoic, circumscribed, lesion at 11 o'clock. This is unchanged from prior examination and has been biopsied with pathology demonstrating a fibroadenoma. Limited left breast ultrasound includes radial 2:00 and 3:00 positions with retroareolar and axillary. Finding demonstrates a 0.9 x 0.5 x 1.1 cm mixed lesion at 2 o'clock 8 cm from the nipple, possible cyst cluster or this is unchanged from prior examination. And a 0.5 x 0.7 x 0.4 cm hypoechoic lesion, possible node at 3 o'clock. This is stable from prior examination. Overall Assessment: Benign, BI-RAD 2 Management: Screening Mammogram of both breasts in 6 months. A clinical breast exam by your physician is recommended on an annual basis and results should be correlated with mammographic findings. Electronically signed and approved by: Drew Heller D.O.
== END | disposition home or self-care (01) ==
LOC: RADUSWWP 08:42
PROVIDERS: ATTEND Surgery
DX: R92.8 Other abnormal and inconclusive findings on diagnostic imaging of breast (principal); Z87.891 Personal history of nicotine dependence

== ENCOUNTER → 2022-03-21 | Outpatient (CLI) | payer OTHER ==
[2022-03-21 11:31] VITALS: BP 127/83; PULSE 75; RESP 16; TEMP 98.9
--- NOTE | 2022-03-21 12:19 | P.PN ---
Subjective Progress Note Date: 03/21/22 Principal diagnosis: fibroadenoma right breast Mica is a 46-year-old white female status post ultrasound-guided core biopsy of the right breast on 3721. Pathology revealed a fibroadenoma and this was benign concordant. A repeat ultrasound of both breast was done on 02-22 both breast were stable with a stable fibroadenoma in the right breast. She does not note any new lumps masses or nodules of concern in either breast. Past surgical history: hysterectomy appy moles removed Medical History: diverticulitis bleeding ulcer endometriosis Psoriasis Torn posterior tibialis and a boot at this time Objective - Vital Signs Vital signs: Vital Signs Temp 98.9 F 03/21/22 11:29 Pulse 75 03/21/22 11:29 Resp 16 03/21/22 11:29 BP 127/83 03/21/22 11:29 Pulse Ox 98 03/21/22 11:29 FiO2 Intake & Output 03/20/22 03/21/22 03/21/22 18:59 06:59 18:59 Weight 77.111 kg - Constitutional General appearance: Present: cooperative - EENT Eyes: Present: EOMI ENT: Present: hearing grossly normal - Neck Neck: Present: normal ROM - Respiratory Respiratory: bilateral: CTA - Cardiovascular Rhythm: regular Heart sounds: normal: S1, S2 - Integumentary Integumentary: Present: normal turgor - Musculoskeletal Musculoskeletal Comment(s): boot on left foot torn tendon - Psychiatric Psychiatric: Present: A&O x's 3, appropriate affect, intact judgment & insight - Additional findings Additional findings: Breast Exam: BRA: 36B inspection: Bilateral grade 3 ptosis Palpation: Right breast: Multiple positional exam fibrocystic changes no discrete dominant masses or nodules of concern Right axilla: No adenopathy of concern Left breast: Multiple positional exam fibrocystic changes no dominant masses or nodules of concern Left axilla: No adenopathy of concern Assessment and Plan Assessment: Impression: Stable fibroadenoma right breast Fibrocystic breast changes Plan: Bilateral mammogram July 2022 with physician exam at that time Patient to follow up sooner any questions or concerns CC: Dr. Cem Espino
== END | disposition home or self-care (01) ==
LOC: WWCWWP 10:34
PROVIDERS: ATTEND Surgery
DX: Z53.9 Procedure and treatment not carried out, unspecified reason (principal)

== ENCOUNTER → 2022-06-27 | Outpatient (CLI) | payer OTHER ==
--- NOTE | 2022-06-27 10:15 | XR ---
EXAMINATION TYPE: XR cervical spine comp DATE OF EXAM: 06/27/2022 COMPARISON: NONE HISTORY: Left shoulder TECHNIQUE: Four views are submitted. FINDINGS: The odontoid is intact. There are no compression deformities. The prevertebral soft tissue structur es are within normal limits. Minimal anterior listhesis C3 on C4 and C4 and C5. Could be positional. Facet arthropathy at the level C4-T1. Mild foraminal encroachment C6-C7 bilaterally. Vague density s een within the left upper lobe IMPRESSION: 1. Mild facet arthropathy lower cervical spine with mild foraminal encroachment question C6-C7. Consi amari follow-up MRI. 2. Within the field of view there is a vague density in the left upper lobe for which dedicated chest x-ray recommended.
--- NOTE | 2022-06-27 12:45 | XR ---
EXAMINATION TYPE: XR chest 2V DATE OF EXAM: 06/27/2022 COMPARISON: Cervical spine x-ray 06/27/2022 TECHNIQUE: PA and lateral views submitted. HISTORY: Abnormal x-ray FINDINGS: The lungs are clear and there is no pneumothorax, pleural effusion, or focal pneumonia. IMPRESSION: 1. Density seen by cervical spine x-ray appears to be related to superimposed structures with no defi nite pulmonary nodule identified..
[2022-06-27 18:06] LABS: Basophils # (A) 0.05 X 10*3/uL (0.00-0.10); Basophils % (A) 0.4 %; Eosinophils # (A) 0.13 X 10*3/uL (0.04-0.35); Eosinophils % (A) 1.1 %; HGB 15.5 g/dL (12.0-15.0); Immature Grans, Automated 0.2 %; Lymphocytes # (A) 3.73 X 10*3/uL (0.90-5.00); Lymphocytes % (A) 30.2 %; MCHC 31.6 g/dL (32.0-37.0); MCV 101.2 fL (80.0-97.0); Mean Platelet Volume 9.7 fL (9.5-12.2); Monocytes # (A) 0.75 X 10*3/uL (0.20-1.00); Monocytes % (A) 6.1 %; NRBC Per 100 WBC 0 /100 WBCS (0.0-0.0); Neutrophils # (A) 7.66 X 10*3/uL (1.80-7.70); Platelet Count 247 X 10*3/uL (140-440); RBC 4.84 X 10*6/uL (4.10-5.20); RDW 13.4 % (11.5-14.5); WBC 12.35 X 10*3/uL (4.50-10.00)
[2022-06-27 18:40] LABS: ALT 18 U/L (8-44); AST 14 U/L (13-35); Albumin 4.5 g/dL (3.8-4.9); Albumin/Globulin Ratio 1.89 (1.60-3.17); Alkaline Phosphatase 95 U/L (41-126); BUN/Creat Ratio 19.79 Ratio (12.00-20.00); Blood Urea Nitrogen 14.9 mg/dL (9.0-27.0); Calcium 9.8 mg/dL (8.7-10.3); Carbon Dioxide 24.8 mmol/L (20.0-27.5); Chloride 105 mmol/L (96-109); Chol/HDL Ratio 5.29 Ratio; Globulin 2.4 g/dL (1.6-3.3); Glucose 101 mg/dL (70-110); LDL Cholesterol,Calculated 196.2 mg/dL (0.0-131.0); Non-African American GFR(CKD) 93.1 (60.0-200.0); Sodium 140 mmol/L (135-145); Total Protein 6.9 g/dL (6.2-8.2)
== END | disposition home or self-care (01) ==
LOC: LABPAT 09:18
PROVIDERS: ATTEND Family Medicine
DX: M47.812 Spondylosis without myelopathy or radiculopathy, cervical region (principal); J98.4 Other disorders of lung; E78.5 Hyperlipidemia, unspecified
CPT/HCPCS: 71046; 72050; 80053; 80061; 84439; 84443; 85025

== ENCOUNTER → 2022-10-09 | Outpatient (CLI) | payer OTHER ==
[2022-10-09 15:09] LABS: Basophils # (A) 0.06 X 10*3/uL (0.00-0.10); Basophils % (A) 0.9 %; Eosinophils # (A) 0.14 X 10*3/uL (0.04-0.35); Eosinophils % (A) 2.1 %; HCT 48.2 % (37.2-46.3); HGB 15.7 g/dL (12.0-15.0); Immature Grans, Automated 0.1 %; Lymphocytes # (A) 2.91 X 10*3/uL (0.90-5.00); Lymphocytes % (A) 43.2 %; MCH 32.7 pg (27.0-32.0); MCHC 32.6 g/dL (32.0-37.0); MCV 100.4 fL (80.0-97.0); Mean Platelet Volume 9.6 fL (9.5-12.2); Monocytes # (A) 0.48 X 10*3/uL (0.20-1.00); Monocytes % (A) 7.1 %; NRBC Per 100 WBC 0 /100 WBCS (0.0-0.0); Neutrophils # (A) 3.14 X 10*3/uL (1.80-7.70); Neutrophils % (A) 46.6 %; Platelet Count 279 X 10*3/uL (140-440); RDW 13.8 % (11.5-14.5); WBC 6.74 X 10*3/uL (4.50-10.00)
[2022-10-09 15:22] LABS: African American GFR (CKD) 116.7 (60.0-200.0); Non-African American GFR(CKD) 100.7 (60.0-200.0)
== END | disposition home or self-care (01) ==
LOC: LABWHC1 08:49
PROVIDERS: ATTEND Student in an Organized Health Care Education/Training Program
DX: L40.0 Psoriasis vulgaris (principal)
CPT/HCPCS: 36415; 82565; 84450; 84460; 85025; 86480

== ENCOUNTER → 2022-11-29 | Outpatient (CLI) | payer OTHER ==
--- NOTE | 2022-11-29 09:44 | USB ---
Reason for Exam: Clinical finding. Patient History: Menarche at age 15. First Full-Term at age 17. Hysterectomy at age 22. 08/27/2021, Benign Core Biopsy on the right side. Risk Values: Venita 5 year model risk: 0.8%. NCI Lifetime model risk: 7.2%. Technique: Method: Targeted. Prior Study Comparison: 08/07/2021 Bilateral Screening Mammogram, [facility]. 08/27/2021 Right Diagnostic Mammogram, [facility]. 08/16/2022 Bilateral MG 3D screening mammo w/cad, [facility]. Findings: The upper outer quadrant of the right breast, the axilla of the right breast and the retroareolar of the right breast were scanned. Imaged: Ultrasound imaging of: Area of concern, retroareolar region and axilla. Similar fibroadenoma right breast 4:00 11 cm nipple measuring up to 19 mm. No evidence for organizing fluid collection or mass. Overall Assessment: Benign, BI-RAD 2 Management: Screening Mammogram of both breasts in 1 year. A clinical breast exam by your physician is recommended on an annual basis and results should be correlated with mammographic findings. This exam should not preclude additional follow-up of suspicious palpable abnormalities. Results were given to the patient verbally at the time of exam. Electronically signed and approved by: Sreekanth Alexandre DO
== END | disposition home or self-care (01) ==
LOC: RADUSWWP 08:54
PROVIDERS: ATTEND Surgery
DX: N63.11 Unspecified lump in the right breast, upper outer quadrant (principal)
CPT/HCPCS: 77065; 76642; G0279; 77061

== ENCOUNTER → 2022-12-04 | Outpatient (CLI) | payer OTHER ==
[2022-12-04 15:16] VITALS: BP 145/83; PULSE 71; RESP 16; TEMP 98.3
--- NOTE | 2022-12-04 15:42 | P.PN ---
Subjective Progress Note Date: 12/04/22 Principal diagnosis: fibroadenoma right breast abnormal right breast ultrasound and mammogram The patient is a 47-year-old white female who was seen initially regarding a mammographic abnormality in her right breast on a mammogram which had been performed and . Workup of this revealed a nodule on ultrasound which resulted in a core biopsy. Core biopsy was done on 372 of the right breast and this revealed a fibroadenoma. This was not symptomatic and not palpable on the patient opted to have this followed with close surveillance. At this time the patient is not complaining of any new lumps masses or nodules of concern. She's not complaining of any nipple discharge or skin changes. She has not had any recent trauma or infection in the breast. Does have bilateral breast discomfort. She had a bilateral mammogram 08-16-22 this was BIRAD 2. Right breast mammogram and ultrasound were done on 11-29-22. Stable fibroadenoma. These were BIRAD 2. Caffeine: 8 cups/day nicotine: 1 PPD chocolate: occasional BCP: used prior to hysterectomy at 22 hormones: none Caffeine: multiple cups of coffee/day nicotine: 1 PPD chocolate: rare Family History; maternal grandfather: Colon cancer Hormonal history: Menarche:14 , breast fed: yes, age at first : 17 hysterectomy at 22, left ovaries endometriosis; she has had testing and is menopausal now control pills: 5 years Surgical History: Hysterectomy secondary to endometriosis Appendectomy emergency hysterectomy Medical History: Psoriasis Social history: Nicotine: One pack per day Alcohol:occasional drugs; none - Constitutional Constitutional: Reports sweats - EENT Eyes: denies blurred vision, denies pain Ears: bilateral: decreased hearing, tinnitus Ears, nose, mouth and throat: Denies headache, Denies sore throat - Breasts Breasts: bilateral: as per HPI - Cardiovascular Cardiovascular: Denies chest pain, Denies shortness of breath - Respiratory Comment: asthma - Gastrointestinal Comment: GERD, questionable Hill's - Genitourinary (Female) Genitourinary: Denies dysuria, Denies hematuria - Menstruation Menstruation: Reports as per HPI - Musculoskeletal Musculoskeletal: Denies myalgias - Integumentary Integumentary: Reports as per HPI - Neurological Neurological: Denies numbness, Denies weakness - Psychiatric Psychiatric: Denies anxiety, Denies depression - Endocrine Endocrine: Reports weight change, Denies fatigue - Hematologic/Lymphatic Comment: none - Allergic/Immunologic Allergic/Immunologic: Reports as per HPI Past Medical History Past Medical History: Asthma, COPD, GERD/Reflux, Hyperlipidemia, Pneumonia, Skin Disorder Additional Past Medical History / Comment(s): Psoriasis; CHRONIC BRONCHITIS., receiving steroid injections for plantar faciitis. History of Any Multi-Drug Resistant Organisms: None Reported Past Surgical History: Appendectomy, Section, Hysterectomy Additional Past Surgical History / Comment(s): MOLES REMOVED BY EYE WITH ANESTHESIA Past Anesthesia/Blood Transfusion Reactions: No Reported Reaction, Family History of Problems w/ Anesthesia Additional Past Anesthesia/Blood Transfusion Reaction / Comment(s): low b/p during one surgery. Daughter = low oxygen and bronchial spasms. Past Psychological History: No Psychological Hx Reported Smoking Status: Current every day smoker Past Alcohol Use History: Occasional Additional Past Alcohol Use History / Comment(s): start smoking 1990-06 ppd Past Drug Use History: None Reported - Past Family History Mother Family Medical History: Hypertension Additional Family Medical History / Comment(s): brain aneurysm Father Additional Family Medical History / Comment(s): suicide Medications and Allergies Home Medications Medication Instructions Recorded Confirmed Type Atorvastatin [Lipitor] 40 mg PO DAILY 01/12/20 08/24/21 History Pantoprazole Sodium [Protonix] 40 mg PO BID 01/12/20 08/24/21 History Adalimumab [Humira(Cf) Pen] 40 mg SQ Q14D 07/09/21 08/24/21 History Montelukast Sodium [Singulair] 10 mg PO DAILY 07/09/21 08/24/21 History Albuterol Inhaler [Ventolin Hfa 1 puff INHALATION RT-TID PRN 08/22/21 08/24/21 History Inhaler] Albuterol Nebulized [Ventolin 1.25 mg INHALATION Q6H 08/22/21 08/24/21 History Nebulized] Fluticasone/Salmeterol [Advair 1 inhalation PO BID 08/22/21 08/24/21 History 100-50 Diskus] Nicotine 21Mg/24Hr Patch [Habitrol] 21 mg SL DAILY 08/24/21 08/24/21 History Allergies Allergy/AdvReac Type Severity Reaction Status Date / Time diphenhydramine Allergy Chest Verified 08/24/21 12:08 [From Benadryl] Pain, anaphylaxis codeine AdvReac migraines Verified 08/24/21 12:08 tramadol HCl [From Ultram] AdvReac migraines Verified 08/24/21 12:08 lactated ringers Allergy Anaphylaxis Uncoded 08/24/21 12:08 Objective - Vital Signs Vital signs: Vital Signs Temp 98.3 F 12/04/22 15:12 Pulse 71 12/04/22 15:12 Resp 16 12/04/22 15:12 BP 145/83 12/04/22 15:12 Pulse Ox 97 12/04/22 15:12 FiO2 Intake & Output 12/03/22 12/04/22 12/04/22 18:59 06:59 18:59 Weight 77.111 kg - Constitutional General appearance: Present: cooperative - EENT Eyes: Present: EOMI ENT: Present: hearing grossly normal - Neck Neck: Present: normal ROM - Respiratory Respiratory: bilateral: CTA - Cardiovascular Heart sounds: normal: S1, S2 - Gastrointestinal General gastrointestinal: Present: soft - Integumentary Integumentary: Present: normal turgor - Musculoskeletal Musculoskeletal: Present: gait normal - Psychiatric Psychiatric: Present: A&O x's 3, appropriate affect, intact judgment & insight - Additional findings Additional findings: Breast Exam: BRA: 40C inspection: Bilateral grade 2 ptosis Palpation: Right breast: Multiple positional exam fibrocystic, no discrete dominant masses or nodules of concern Right axilla: No adenopathy of concern Left breast: Multiple positional exam no dominant masses or nodules of concern Left axilla: No adenopathy of concern The patient does have some tenderness bilaterally in the breast. Assessment and Plan Assessment: Impression: mastodynia with examination Fibrocystic breast changes Stable fibroadenoma right breast Plan: Bilateral mammogram in July 2023 with examination at that time life style modifications have been discussed with the patient with respect to the mastodynia, life stye all modifications would include stopping nicotine or c affeine intake Cc: Dr. Cem Espino
== END ==
LOC: WWCWWP 14:42
PROVIDERS: ATTEND Surgery
DX: N60.11 Diffuse cystic mastopathy of right breast (principal); N60.21 Fibroadenosis of right breast; N64.4 Mastodynia; J44.9 Chronic obstructive pulmonary disease, unspecified; F17.210 Nicotine dependence, cigarettes, uncomplicated; K21.9 Gastro-esophageal reflux disease without esophagitis; E78.5 Hyperlipidemia, unspecified; L40.9 Psoriasis, unspecified; Z80.8 Family history of malignant neoplasm of other organs or systems; Z79.51 Long term (current) use of inhaled steroids; Z88.5 Allergy status to narcotic agent; Z88.3 Allergy status to other anti-infective agents; Z88.8 Allergy status to other drugs, medicaments and biological substances

== ENCOUNTER → 2022-12-25 | Outpatient (CLI) | payer OTHER ==
[2022-12-25 15:53] LABS: Basophils # (A) 0.06 X 10*3/uL (0.00-0.10); Basophils % (A) 0.5 %; Eosinophils # (A) 0.16 X 10*3/uL (0.04-0.35); Eosinophils % (A) 1.3 %; HCT 49.2 % (37.2-46.3); HGB 15.6 d/dL (12.0-15.0); Lymphocytes # (A) 3.06 X 10*3/uL (0.90-5.00); Lymphocytes % (A) 25.2 %; MCH 32.5 pg (27.0-32.0); MCHC 31.7 d/dL (32.0-37.0); MCV 102.5 FL (80.0-97.0); Mean Platelet Volume 9.9 FL (9.5-12.2); Monocytes # (A) 0.66 X 10*3/uL (0.20-1.00); Monocytes % (A) 5.4 %; NRBC Per 100 WBC 0 X 10*3/uL (0.00-0.01); Neutrophils # (A) 8.14 X 10*3/uL (1.80-7.70); Neutrophils % (A) 67.3 %; Platelet Count 284 X 10*3/uL (140-440); WBC 12.12 X 10*3/uL (4.50-10.00)
[2022-12-25 16:14] LABS: ALT 19 U/L (8-44); AST 14 U/L (13-35); Albumin 4.4 d/dL (3.8-4.9); Albumin/Globulin Ratio 1.76 Ratio (1.60-3.17); Alkaline Phosphatase 104 U/L (41-126); BUN/Creat Ratio 22.71 Ratio (12.00-20.00); Blood Urea Nitrogen 15.9 mg/dL (9.0-27.0); Calcium 9.8 mg/dL (8.7-10.3); Chloride 109 mmol/L (96-109); Chol/HDL Ratio 2.77 Ratio; Globulin 2.5 d/dL (1.6-3.3); Glucose 93 mg/dL (70-110); LDL Cholesterol,Calculated 81.7 mg/dL (0.0-131.0); Potassium 4.3 mmol/L (3.5-5.5); Sodium 144 mmol/L (135-145); Total Bilirubin 0.4 mg/dL (0.3-1.2); Total Protein 6.9 d/dL (6.2-8.2)
== END | disposition home or self-care (01) ==
LOC: LABWHC1 08:55
PROVIDERS: ATTEND Family Medicine
DX: E78.5 Hyperlipidemia, unspecified (principal)
CPT/HCPCS: 36415; 80053; 80061; 84443; 85025

== ENCOUNTER 2023-01-18 03:45 | Emergency (ER) | payer OTHER ==
[2023-01-18 03:59] VITALS: RESP 18; TEMP 99.1
--- NOTE | 2023-01-18 04:30 | ED ---
Fall HPI - General Chief Complaint: Fall Stated Complaint: Fall Time Seen by Provider: 01/18/23 03:53 Source: patient, RN notes reviewed, old records reviewed Mode of arrival: EMS - History of Present Illness Initial Comments: This is a 47-year-old female to the emergency department today today. Patient presents today for evaluation of not feeling well, patient feels severe left leg pain after fall. Patient has significant injury from that she currently had surgery for left foot reconstructive surgery about a week ago. Patient is still in significant splint for the postoperative period, patient states she does have pain in the left leg after a fall today. 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 Fall Witnessed: no Place Fall Occurred: home Loss of Consciousness: none Prolonged Down Time?: no Symptoms Prior to Fall: none Location - Extremities: Left: Leg, Ankle, Foot Severity: severe Severity scale (1-10): 9 Quality: sharp Context: tripped/slipped Associated Symptoms: denies - Related Data Home Medications Medication Instructions Recorded Confirmed Atorvastatin [Lipitor] 40 mg PO DAILY 01/12/20 12/04/22 Pantoprazole Sodium [Protonix] 40 mg PO BID 01/12/20 12/04/22 Montelukast Sodium [Singulair] 10 mg PO DAILY 07/09/21 12/04/22 Albuterol Inhaler [Ventolin Hfa 1 puff INHALATION RT-TID PRN 08/22/21 12/04/22 Inhaler] Albuterol Nebulized [Ventolin 1.25 mg INHALATION Q6H 08/22/21 12/04/22 Nebulized (Accuneb)] Fluticasone Propion/Salmeterol 1 inhalation PO BID 08/22/21 12/04/22 [Advair 100-50 Diskus] Gabapentin 300 mg PO TID 12/04/22 12/04/22 Allergies Allergy/AdvReac Type Severity Reaction Status Date / Time diphenhydramine Allergy Chest Verified 01/18/23 03:59 [From Benadryl] Pain, anaphylaxis codeine AdvReac migraines Verified 01/18/23 03:59 tramadol HCl [From Ultram] AdvReac migraines Verified 01/18/23 03:59 lactated ringers Allergy Anaphylaxis Uncoded 01/18/23 03:59 Review of Systems ROS Statement: Those systems with pertinent positive or pertinent negative responses have been documented in the HPI. ROS Other: All systems not noted in ROS Statement are negative. Past Medical History Past Medical History: Asthma, COPD, GERD/Reflux, Hyperlipidemia, Pneumonia, Skin Disorder Additional Past Medical History / Comment(s): Psoriasis History of Any Multi-Drug Resistant Organisms: None Reported Past Surgical History: Appendectomy, Breast Surgery, Section, Hysterectomy Additional Past Surgical History / Comment(s): MOLES REMOVED BY EYE WITH ANESTHESIA. RT BREAST BX-08/27/21 Past Anesthesia/Blood Transfusion Reactions: Previous Problems w/ Anesthesia, Family History of Problems w/ Anesthesia Additional Past Anesthesia/Blood Transfusion Reaction / Comment(s): low b/p during one surgery. Daughter = low oxygen and bronchial spasms. Past Psychological History: No Psychological Hx Reported Smoking Status: Current every day smoker Past Alcohol Use History: Occasional Past Drug Use History: None Reported - Past Family History Mother Family Medical History: Hypertension Additional Family Medical History / Comment(s): brain aneurysm Father Additional Family Medical History / Comment(s): suicide General Exam Limitations: no limitations General appearance: alert, in no apparent distress Head exam: Present: atraumatic, normocephalic, normal inspection Eye exam: Present: normal appearance, PERRL, EOMI. Absent: scleral icterus, conjunctival injection, periorbital swelling ENT exam: Present: normal exam, mucous membranes moist Neck exam: Present: normal inspection. Absent: tenderness, meningismus, lymphadenopathy Respiratory exam: Present: normal lung sounds bilaterally. Absent: respiratory distress, wheezes, rales, rhonchi, stridor Cardiovascular Exam: Present: regular rate, normal rhythm, normal heart sounds. Absent: systolic murmur, diastolic murmur, rubs, gallop, clicks GI/Abdominal exam: Present: soft, normal bowel sounds. Absent: distended, tenderness, guarding, rebound, rigid Extremities exam: Present: normal inspection, full ROM, tenderness (Tib-fib ankle), normal capillary refill. Absent: pedal edema, joint swelling, calf tenderness Back exam: Present: normal inspection Neurological exam: Present: alert, oriented X3, CN II-XII intact Psychiatric exam: Present: normal affect, normal mood Skin exam: Present: warm, dry, intact, normal color. Absent: rash Course Vital Signs 01/18/23 01/18/23 03:57 06:15 Temperature 99.1 F Pulse Rate 76 72 Respiratory 18 18 Rate Blood Pressure 150/108 119/71 O2 Sat by Pulse 97 98 Oximetry - Reevaluation(s) Reevaluation #1: 01/18/23 04:29 Medical records reviewed Reevaluation #2: 01/18/23 04:30 Patient's pain is controlled Reevaluation #3: Patient informed results and questions are answered Reevaluation #4: 01/18/23 04:30 Was pt. sent in by a medical professional or institution (, SEDRICK, PROPULSION MACHINERY SERVICE ENGINEER, urgent care, hospital, or shelter...) When possible be specific @ -no Did you speak to anyone other than the patient for history (EMS, parent, family, police, friend...)? What history was obtained from this source @ -no Did you review nursing and triage notes (agree or disagree)? Why? @ -agree Are old charts reviewed (outside hosp., previous admission, EMS record, old EKG, old radiological studies, urgent care reports/EKG's, shelter records)? Report findings @ -yes Differential Diagnosis (chest pain, altered mental status, abdominal pain women, abdominal pain men, vaginal bleeding, weakness, fever, dyspnea, syncope, headache, dizziness, GI bleed, back pain, seizure, CVA, palpatations, mental health, musculoskeletal)? @ -prior EKG interpreted by me (3pts min.). @ -no X-rays interpreted by me (1pt min.). @ -yes CT interpreted by me (1pt min.). @ -no U/S interpreted by me (1pt. min.). @ -no What testing was considered but not performed or refused? (CT, X-rays, U/S, labs)? Why? @ -none What meds were considered but not given or refused? Why? @ -none Did you discuss the management of the patient with other professionals (professionals i.e. SEDRICK Cheema, PROPULSION MACHINERY SERVICE ENGINEER, lab, RT, psych nurse, social media campaign manager, preventative maintenance technician, teacher, navigating officer, patient case manager)? Give summary @ -no Was smoking cessation discussed for >3mins.? @ -no Was critical care preformed (if so, how long)? @ -no Were there social determinants of health that impacted care today? How? (Homelessness, low income, unemployed, alcoholism, drug addiction, transportation, low edu. Level, literacy, decrease access to med. care, fci, rehab)? @ -none Was there de-escalation of care discussed even if they declined (Discuss DNR or withdrawal of care, Hospice)? DNR status @ -no What co-morbidities impacted this encounter? (DM, HTN, Smoking, COPD, CAD, Cancer, CVA, ARF, Chemo, Hep., AIDS, mental health diagnosis, sleep apnea, morbid obesity)? @ -none Was patient admitted / discharged? Hospital course, mention meds given and route, prescriptions, significant lab abnormalities, going to OR and other pertinent info. @ - 47 female status post trip and fall left leg pain, recent surgery on that left leg and patient has does concern for new injury. Tendons, patient doesn't believe she has a tendon injury, prior history of tendon injury with surgery, patient does not have a bony injury noted on x-ray and can be discharged home,'s patient splint is left in place and patient will follow-up with surgeon Discharge Undiagnosed new problem with uncertain prognosis? @ -no Drug Therapy requiring intensive monitoring for toxicity (Heparin, Nitro, Insulin, Cardizem)? @ -no Were any procedures done? @ -no Diagnosis/symptom? @ -Left leg pain, fall Acute, or Chronic, or Acute on Chronic? @ -Acute Uncomplicated (without systemic symptoms) or Complicated (systemic symptoms)? @ -Complicated Side effects of treatment? @ -no Exacerbation, Progression, or Severe Exacerbation? @ -exacerbation Poses a threat to life or bodily function? How? (Chest pain, [place], [place], pneumonia, PE, COPD, DKA, ARF, appy, cholecystitis, CVA, Diverticulitis, Homicidal, Suicidal, threat to staff... and all critical care pts) @ -no Medical Decision Making - Medical Decision Making 47 female status post trip and fall left leg pain, recent surgery on that left leg and patient has does concern for new injury. Tendons, patient doesn't believe she has a tendon injury, prior history of tendon injury with surgery, patient does not have a bony injury noted on x-ray and can be discharged home,'s patient splint is left in place and patient will follow-up with surgeon - Radiology Data Radiology results: report reviewed (X-ray left tib-fib is negative for acute disease), image reviewed Disposition Clinical Impression: Fall, Left leg pain Disposition: HOME SELF-CARE Condition: Good Instructions (If sedation given, give patient instructions): Leg Pain (ED) Is patient prescribed a controlled substance at d/c from ED?: No Referrals: Cem Espino MD [Primary Care Provider] - 1-2 days Time of Disposition: 06:50
[2023-01-18] MEDS ORDERED: MORPHINE SULFATE 4 MG/ML SYRINGE IVP STA (06:18)
[2023-01-18 06:28] VITALS: BP 119/71; PULSE 72
--- NOTE | 2023-01-18 06:33 | XR ---
EXAMINATION TYPE: XR tibia fibula LT DATE OF EXAM: 01/18/2023 4:17 AM INDICATION: Patient age:Female; 47 years old; Reason for study: fall; [facility]. COMPARISON: Bilateral knee radiograph 02/22/21 TECHNIQUE: The left tibia/fibula was examined in AP and lateral projections. FINDINGS: No acute fracture or dislocation. Fixation plate involving the dorsal aspect of the midfoot . 2 calcaneal screws identified. Mild soft tissue swelling of the foot and ankle. No joint effusion. IMPRESSION: 1. No evidence of acute fracture. 2. Postsurgical changes of the foot. 3. Mild soft tissue swelling of the foot and ankle.
== END 2023-01-18 07:10 | disposition home or self-care (01) ==
LOC: EC 03:45
DX: M79.605 Pain in left leg (principal); E78.5 Hyperlipidemia, unspecified; J44.9 Chronic obstructive pulmonary disease, unspecified; K21.9 Gastro-esophageal reflux disease without esophagitis; F17.200 Nicotine dependence, unspecified, uncomplicated; Z79.51 Long term (current) use of inhaled steroids; Z79.899 Other long term (current) drug therapy; Z88.5 Allergy status to narcotic agent; Z88.8 Allergy status to other drugs, medicaments and biological substances; W18.30XA Fall on same level, unspecified, initial encounter
CPT/HCPCS: 73590; 99284; 96374; J2270

== ENCOUNTER → 2023-01-21 | Outpatient (CLI) | payer OTHER ==
--- NOTE | 2023-01-21 17:33 | US ---
EXAMINATION TYPE: US venous doppler duplex LE LT DATE OF EXAM: 01/21/2023 5:17 PM COMPARISON: NONE CLINICAL INDICATION: Female, 47 years old with history of I82.492 DVT of other specified vein of left lower extremity; Pt had foot reconstruction surgery 01/14/23. Pt fell 01/17/23. Pt states burning sens ation in lt foot since fall. No hx of DVT. Not on blood thinners SIDE PERFORMED: Left TECHNIQUE: The lower extremity deep venous system is examined utilizing real time linear array sonog kareem with graded compression, doppler sonography and color-flow sonography. VESSELS IMAGED: Common Femoral Vein Deep Femoral Vein Greater Saphenous Vein * Femoral Vein Popliteal Vein Small Saphenous Vein * Proximal Calf Veins (* superficial vessels) Left Leg: No evidence for DVT IMPRESSION: Grayscale, color doppler, spectral doppler imaging performed of the deep veins of the lo wer extremities. There is normal flow, compressibility, vascular waveforms.
== END | disposition home or self-care (01) ==
LOC: LABWHC1 16:16
PROVIDERS: ATTEND Podiatrist Foot & Ankle Surgery
DX: I82.492 Acute embolism and thrombosis of other specified deep vein of left lower extremity (principal)

== ENCOUNTER → 2023-04-17 | Outpatient (CLI) | payer OTHER ==
--- NOTE | 2023-04-18 02:30 | US ---
EXAMINATION TYPE: US extremity nonvasc complete LT, Achilles tendon DATE OF EXAM: 04/17/2023 COMPARISON: Radiograph tibia/fibula 01/18/2023 CLINICAL INDICATION: Female, 47 years old with history of S86.012A STRAIN OF LEFT ACHILLES TENDON, S 86.312A; [employer] notes: Patient had extensive foot surgery at lateral, anterior and heel aspects to repair chronic pain and poor structural alignment, sx performed at the end of December 2022, pt has had PT, per sisting pain and inability to flex foot TECHNIQUE: Per order, scanned left achilles and peroneal tendons FINDINGS: [employer] notes: Left achilles attachment appears wnl, at lower to mid aspect of the ach illes at level of scar some post surgical changes notes, tendon is more significantly thickened at th e upper aspect, mildly thickened at the mid portion and more normal in appearance at the lower level. No increased vascularity noted. ?Some impingement at the level of the scar where thickening occurs superior to this level. On the provided images, there appears to be preserved insertional fibers. Located approximately 9 mm above the calcaneal insertion, the Achilles tendon demonstrates abnormal morphology, likely scarred d own sequela of previous extensive partial tear. There is a 7 mm band of markedly abnormal fibers/scar tissue followed by ar 2.0 cm span where the fibers taper distally and show abnormal hypoechoic appea paul. There is tapering down to 3 mm AP. Along the upper Achilles tendon, at the site of more normal tendon morphology, there is thickening up to 8.5 mm. Peroneal longus and brevis scanned. Peroneus longus appears wnl as seen. Peroneus brevis also appears within normal limits with preserved fibular architecture and normal attachment at the base of the fi fth metatarsal. No abnormal tenosynovial fluid or tear is identified. IMPRESSION: 1. Abnormal Achilles tendon, likely sequela of scarred down, extensive partial tear . The tendon is m arkedly abnormal for a span of 7 mm, located approximately 9 mm above the calcaneal insertion, probab ly corresponding to the site of previous tear. Above the abnormal segment, there is a 2 cm span of ad ditional tendinotic or scarred fibers which taper down to 3 mm. 2. Tendinosis of the proximal third segment of the Achilles tendon with thickening up to 8.5 mm. Cons ider MRI for further characterization. 3. The peroneal tendons appear intact by ultrasound.
== END | disposition home or self-care (01) ==
LOC: RADUSWWP 08:55
PROVIDERS: ATTEND Podiatrist Foot & Ankle Surgery
DX: S86.012A Strain of left Achilles tendon, initial encounter (principal); S86.312A Strain of muscle(s) and tendon(s) of peroneal muscle group at lower leg level, left leg, initial encounter

== ENCOUNTER → 2023-04-17 | Outpatient (CLI) | payer OTHER ==
[2023-04-17 22:42] LABS: Clam IgE <0.10 kU/L; Codfish IgE <0.10 kU/L; Egg White IgE <0.10 kU/L; Peanut IgE <0.10 kU/L; Scallop IgE <0.10 kU/L; Shrimp IgE <0.10 kU/L; Soybean IgE <0.10 kU/L; Walnut IgE (Food) <0.10 kU/L
[2023-04-18 14:04] LABS: Alt. alternata IgE Class CLASS 0; Alternaria alternata IgE <0.10 kU/L (<0.10); Asperg. fumagatus IgE <0.10 kU/L (<0.10); Asperg. fumagatus IgE Class CLASS 0; Bermuda Grass IgE <0.10 kU/L (<0.10); Birch(Com.Silvr) IgE <0.10 kU/L (<0.10); Birch(Com.Silvr) IgE Class CLASS 0; Cat Epith & Dander IgE <0.10 kU/L (<0.10); Cat Epith & Dander IgE Class CLASS 0; Clad herbarum IgE <0.10 kU/L (<0.10); Clad herbarum IgE Class CLASS 0; Cockroach IgE <0.10 kU/L (<0.10); Cottonwood IgE <0.10 kU/L (<0.10); Dermato. Pteronyssinus Class CLASS 2; Dermato. Pteronyssinus IgE 1.07 kU/L (<0.10); Dermato. farinae IgE 0.97 kU/L (<0.10); Dermato. farinae IgE Class CLASS 2; Dog Dander IgE <0.10 kU/L (<0.10); Elm IgE <0.10 kU/L (<0.10); Maple (Box Elder) IgE <0.10 kU/L (<0.10); Maple (Box Elder) IgE Class CLASS 0; Mountain Cedar IgE 0.11 kU/L (<0.10); Mountain Cedar IgE Class CLASS 0/1; Mouse Urine IgE Class CLASS 0; Mouse Urine Proteins,IgE <0.10 kU/L (<0.10); Nettle IgE <0.10 kU/L (<0.10); Nettle IgE Class CLASS 0; Oak IgE <0.10 kU/L (<0.10); Penicillium chrysogenum IgE <0.10 kU/L (<0.10); Penicillium chrysogenum IgE Cl CLASS 0; Rough Marshelder IgE Class CLASS 0/1; Timothy Grass IgE 0.11 kU/L (<0.10); Timothy Grass IgE Class CLASS 0/1; White Ash IgE Class CLASS 0
== END | disposition home or self-care (01) ==
LOC: LABWHC1 08:58
PROVIDERS: ATTEND Family Medicine
DX: L25.9 Unspecified contact dermatitis, unspecified cause (principal)
CPT/HCPCS: 36415; 82785; 86003

== ENCOUNTER → 2023-05-03 | Outpatient (CLI) | payer OTHER ==
--- NOTE | 2023-05-04 14:04 | MR ---
EXAMINATION TYPE: MR ankle LT wo con DATE OF EXAM: 05/03/2023 COMPARISON: Left ankle ultrasound 04/17/2023 HISTORY: Abnormal U/S post surgery, Pain Left ankle, Multiplanar, multisequence images of the left ankle were acquired without contrast. FINDINGS: LIGAMENTS: Anterior talofibular ligament is slightly thickened and slightly hyperintense, suggesting low-grade s prain. The calcaneofibular and posterior talofibular ligaments are normal. Deltoid ligamentous complex is normal. Tibiofibular syndesmosis is normal. Spring ligament is normal. Lisfranc ligament normal. PERONEAL TENDONS: Normal. FLEXOR TENDONS: Tiny amount of fluid within the inframalleolar posterior tibial tendon sheath, relating to tenosynovi tis. The flexor hallucis longus and flexor digitorum longus tendons are normal. EXTENSOR TENDONS: Normal. ACHILLES TENDON: Just proximal to the Achilles tendon insertion on the calcaneus, the tendon is thickened and slightly hyperintense intrasubstance signal; these findings may represent partial intrasubstance tear and/or post surgical changes.. BONES/CARTILAGE/JOINT: Calcaneal post surgical changes relating to osteotomy transfixed by 2 dorsal approach orthopedic scre ws. First tarsometatarsal joint surgical arthrodesis with a dorsal plate. Mild amorphous bone marrow signal within the talar neck and anterior process, may relate to stress re action and/or degenerative marrow edema. Articular cartilage is normal. No joint effusion. SOFT TISSUES: Small amount of nonspecific subcutaneous edema overlying the medial malleolus. No bursal distention. Kager's fat pad is normal. Sinus tarsi is normal. Plantar fascia is normal. Neurovascular structures are normal. IMPRESSION: 1. Postsurgical changes and/or partial intrasubstance tear distal Achilles. 2. ATFL low-grade sprain. 3. Posterior tibial tendon tenosynovitis. 4. Status post calcaneal osteotomy and first TMT joint surgical arthrodesis. 5. Nonspecific edema within the talar neck and anterior process, may relate to stress reaction and/or degenerative marrow edema.
== END | disposition home or self-care (01) ==
LOC: RADMRIMAIN 12:10
PROVIDERS: ATTEND Podiatrist Foot & Ankle Surgery
DX: S86.012D Strain of left Achilles tendon, subsequent encounter (principal); S93.402D Sprain of unspecified ligament of left ankle, subsequent encounter; M65.872 Other synovitis and tenosynovitis, left ankle and foot; Z98.1 Arthrodesis status; X58.XXXD Exposure to other specified factors, subsequent encounter

== ENCOUNTER → 2023-08-18 | Outpatient (CLI) | payer OTHER | END | disposition home or self-care (01) | LOC: LABWHC1 14:02 | PROVIDERS: ATTEND Dermatology MOHS-Micrographic Surgery | DX: L40.0 Psoriasis vulgaris (principal); Z79.899 Other long term (current) drug therapy | CPT/HCPCS: 36415; 86480 ==

== ENCOUNTER → 2023-09-18 | Outpatient (CLI) | payer OTHER ==
--- NOTE | 2023-10-06 10:22 | US ---
EXAMINATION TYPE: US extremity nonvasc complete LT (ankle) DATE OF EXAM: 09/18/2023 COMPARISON: MRI 05/03/2023 CLINICAL INDICATION: Female, 48 years old with history of M76.822 POST TIBIAL TENDINITIS L LEG M76.62 ; pt had surgical repair in December 2022; pt states achilles cut and elongated during surgery and that i t was "reruptured" during PT; pt has continued pain during walking and limited ROM. Order for left p ost tib and achilles. TECHNIQUE: Scanned over the left post tib and achilles tendon. FINDINGS: [employer] notes: Fluid collection seen deep to the left post tib adjacent to attachment. ?bony irregularity? Some vas cularity seen at this area. The post tib tendon itself appears intact. [employer] notes: The upper third left achilles appears thickened. Surgical clips noted at the lower third, some vascu larity seen. On transverse imaging some bony irregularity noted. ?split tear mid v post op changes? IMPRESSION: 1. Insertional tendinosis and tenosynovitis of the posterior tibial tendon. No discrete tear. 2. Postsurgical change with previous repair of the Achilles tendon located 2 cm above the calcaneal i nsertion. 3. Moderate tendinosis of the proximal third Achilles tendon (thickened up to 1.1 cm). No retracted t ear is seen.
== END | disposition home or self-care (01) ==
LOC: RADUSWWP 09:58
PROVIDERS: ATTEND Podiatrist Foot & Ankle Surgery
DX: M67.874 Other specified disorders of tendon, left ankle and foot (principal); M65.872 Other synovitis and tenosynovitis, left ankle and foot; M76.62 Achilles tendinitis, left leg; M76.822 Posterior tibial tendinitis, left leg; Z98.890 Other specified postprocedural states

== ENCOUNTER → 2023-10-09 | Outpatient (CLI) | payer OTHER ==
--- NOTE | 2023-10-09 13:12 | P.PN ---
Subjective Progress Note Date: 10/09/23 Principal diagnosis: fibrocystic breast disease/fibroadenoma 10-09-23 Mica is a 48-year-old white female who has a biopsy-proven right breast fibroadenoma. This is not symptomatic and is not palpable. It was diagnosed on 08-27-2021. She underwent a bilateral screening mammogram on 08-26-2023 which was benign BI-RADS 2. She is not concerned about any new lumps masses or nodules of concern in either breast. Caffeine: 8 cups/day nicotine: 1 PPD chocolate: occasional BCP: used prior to hysterectomy at 22 hormones: none Caffeine: multiple cups of coffee/day nicotine: 1 PPD chocolate: rare Family History; maternal grandfather: Colon cancer Hormonal history: Menarche:14 , breast fed: yes, age at first : 17 hysterectomy at 22, left ovaries endometriosis; she has had testing and is menopausal now control pills: 5 years Surgical History: Hysterectomy secondary to endometriosis Appendectomy emergency hysterectomy left foot surgery Medical History: Psoriasis Social history: Nicotine: One pack per day Alcohol:occasional drugs; none - Constitutional Constitutional: Reports sweats - EENT Eyes: denies blurred vision, denies pain Ears: bilateral: decreased hearing, tinnitus Ears, nose, mouth and throat: Denies headache, Denies sore throat - Breasts Breasts: bilateral: as per HPI - Cardiovascular Cardiovascular: Denies chest pain, Denies shortness of breath - Respiratory Comment: asthma - Gastrointestinal Comment: GERD, questionable Hill's - Genitourinary (Female) Genitourinary: Denies dysuria, Denies hematuria - Menstruation Menstruation: Reports as per HPI - Musculoskeletal Musculoskeletal: Denies myalgias - Integumentary Integumentary: Reports as per HPI - Neurological Neurological: Denies numbness, Denies weakness - Psychiatric Psychiatric: Denies anxiety, Denies depression - Endocrine Endocrine: Reports weight change, Denies fatigue - Hematologic/Lymphatic Comment: none - Allergic/Immunologic Allergic/Immunologic: Reports as per HPI Past Medical History Past Medical History: Asthma, COPD, GERD/Reflux, Hyperlipidemia, Pneumonia, Skin Disorder Additional Past Medical History / Comment(s): Psoriasis; CHRONIC BRONCHITIS., receiving steroid injections for plantar faciitis. History of Any Multi-Drug Resistant Organisms: None Reported Past Surgical History: Appendectomy, Section, Hysterectomy Additional Past Surgical History / Comment(s): MOLES REMOVED BY EYE WITH ANESTHESIA Past Anesthesia/Blood Transfusion Reactions: No Reported Reaction, Family History of Problems w/ Anesthesia Additional Past Anesthesia/Blood Transfusion Reaction / Comment(s): low b/p during one surgery. Daughter = low oxygen and bronchial spasms. Past Psychological History: No Psychological Hx Reported Smoking Status: Current every day smoker Past Alcohol Use History: Occasional Additional Past Alcohol Use History / Comment(s): start smoking 1990-06 ppd Past Drug Use History: None Reported - Past Family History Mother Family Medical History: Hypertension Additional Family Medical History / Comment(s): brain aneurysm Father Additional Family Medical History / Comment(s): suicide Medications and Allergies Home Medications Medication Instructions Recorded Confirmed Type Atorvastatin [Lipitor] 40 mg PO DAILY 01/12/20 08/24/21 History Pantoprazole Sodium [Protonix] 40 mg PO BID 01/12/20 08/24/21 History Adalimumab [Humira(Cf) Pen] 40 mg SQ Q14D 07/09/21 08/24/21 History Montelukast Sodium [Singulair] 10 mg PO DAILY 07/09/21 08/24/21 History Albuterol Inhaler [Ventolin Hfa 1 puff INHALATION RT-TID PRN 08/22/21 08/24/21 History Inhaler] Albuterol Nebulized [Ventolin 1.25 mg INHALATION Q6H 08/22/21 08/24/21 History Nebulized] Fluticasone/Salmeterol [Advair 1 inhalation PO BID 08/22/21 08/24/21 History 100-50 Diskus] Nicotine 21Mg/24Hr Patch [Habitrol] 21 mg SL DAILY 08/24/21 08/24/21 History Allergies Allergy/AdvReac Type Severity Reaction Status Date / Time diphenhydramine Allergy Chest Verified 08/24/21 12:08 [From Benadryl] Pain, anaphylaxis codeine AdvReac migraines Verified 08/24/21 12:08 tramadol HCl [From Ultram] AdvReac migraines Verified 08/24/21 12:08 lactated ringers Allergy Anaphylaxis Uncoded 08/24/21 12:08 Objective - Constitutional General appearance: Present: cooperative - EENT Eyes: Present: EOMI ENT: Present: hearing grossly normal - Neck Neck: Present: normal ROM - Respiratory Respiratory: bilateral: CTA - Cardiovascular Rhythm: regular Heart sounds: normal: S1, S2 - Gastrointestinal General gastrointestinal: Present: soft - Integumentary Integumentary: Present: normal turgor - Musculoskeletal Musculoskeletal: Present: gait normal - Psychiatric Psychiatric: Present: A&O x's 3, appropriate affect, intact judgment & insight - Additional findings Additional findings: Breast Exam: BRA: 40C inspection: Bilateral grade 2 ptosis Palpation: Right breast: Multiple positional exam fibrocystic, no discrete dominant masses or nodules of concern Right axilla: No adenopathy of concern Left breast: Multiple positional exam no dominant masses or nodules of concern Left axilla: No adenopathy of concern Assessment and Plan Assessment: Impression: mastodynia improved Fibrocystic breast changes Plan: Bilateral mammogram in August 2024 with examination at that time life style modifications have been discussed with the patient with respect to the mastodynia, life stye all modifications would include stopping nicotine or caffeine intake Cc: Dr. Cem Espino
[2023-10-09 13:40] VITALS: BP 124/86; PULSE 75; RESP 16; TEMP 98.5
== END | disposition home or self-care (01) ==
LOC: WWCWWP 12:40
PROVIDERS: ATTEND Surgery
DX: N60.12 Diffuse cystic mastopathy of left breast (principal); F17.200 Nicotine dependence, unspecified, uncomplicated; Z88.1 Allergy status to other antibiotic agents; Z88.5 Allergy status to narcotic agent; Z91.018 Allergy to other foods

== ENCOUNTER 2024-03-01 13:15 | Emergency (ER) | payer OTHER ==
[2024-03-01 13:20] VITALS: TEMP 98.1
--- NOTE | 2024-03-01 15:08 | ED ---
Dizziness HPI - General Chief Complaint: Dizziness Stated Complaint: Dizziness, near syncope Time Seen by Provider: 03/01/24 13:32 Source: patient, RN notes reviewed Mode of arrival: wheelchair Limitations: no limitations - History of Present Illness Initial Comments: 48-year-old female with past medical history of GERD, hypercholesterol presents the emergency department chief complaint of dizziness and headache. Patient states that since Friday morning she has been experiencing a headache located to the right side of her head. While she was at work this morning she felt lightheaded and like she was going to pass out neck started spearing dizziness as well. Patient states that she has been feeling nauseous no episodes of vomiting. Denies shortness of breath, chest pain, difficulty breathing, abdominal pain. History of migraine headaches, does not take any prophylactic or abortive medications for this. Denies history of following with neurology. - Related Data Home Medications Medication Instructions Recorded Confirmed Atorvastatin [Lipitor] 40 mg PO DAILY 01/12/20 10/09/23 Pantoprazole Sodium [Protonix] 40 mg PO BID 01/12/20 10/09/23 Montelukast Sodium [Singulair] 10 mg PO DAILY 07/09/21 10/09/23 Albuterol Inhaler [Ventolin Hfa 1 puff INHALATION RT-TID PRN 08/22/21 10/09/23 Inhaler] Albuterol Nebulized [Ventolin 1.25 mg INHALATION Q6H 08/22/21 10/09/23 Nebulized (Accuneb)] Fluticasone Propion/Salmeterol 1 inhalation PO BID 08/22/21 10/09/23 [Advair 100-50 Diskus] Gabapentin 300 mg PO TID 12/04/22 10/09/23 Allergies Allergy/AdvReac Type Severity Reaction Status Date / Time diphenhydramine Allergy Chest Verified 03/01/24 13:21 [From Benadryl] Pain, anaphylaxis codeine AdvReac migraines Verified 03/01/24 13:21 tramadol HCl [From Ultram] AdvReac migraines Verified 03/01/24 13:21 lactated ringers Allergy Anaphylaxis Uncoded 10/09/23 13:21 Review of Systems ROS Statement: Those systems with pertinent positive or pertinent negative responses have been documented in the HPI. ROS Other: All systems not noted in ROS Statement are negative. Past Medical History Past Medical History: Asthma, COPD, GERD/Reflux, Hyperlipidemia, Pneumonia, Skin Disorder Additional Past Medical History / Comment(s): Psoriasis History of Any Multi-Drug Resistant Organisms: None Reported Past Surgical History: Appendectomy, Breast Surgery, Section, Hysterectomy Additional Past Surgical History / Comment(s): MOLES REMOVED BY EYE WITH ANESTHESIA. RT BREAST BX-08/27/21 Past Anesthesia/Blood Transfusion Reactions: Previous Problems w/ Anesthesia, Family History of Problems w/ Anesthesia Additional Past Anesthesia/Blood Transfusion Reaction / Comment(s): low b/p during one surgery. Daughter = low oxygen and bronchial spasms. Past Psychological History: No Psychological Hx Reported Smoking Status: Current every day smoker Past Alcohol Use History: Occasional Past Drug Use History: None Reported - Past Family History Mother Family Medical History: Hypertension Additional Family Medical History / Comment(s): brain aneurysm Father Additional Family Medical History / Comment(s): suicide General Exam Limitations: no limitations General appearance: alert, in no apparent distress Head exam: Present: atraumatic, normocephalic, normal inspection Eye exam: Present: normal appearance, PERRL, EOMI. Absent: scleral icterus, con junctival injection, periorbital swelling ENT exam: Present: normal exam, mucous membranes moist Neck exam: Present: normal inspection. Absent: tenderness, meningismus, lymphadenopathy Respiratory exam: Present: normal lung sounds bilaterally. Absent: respiratory distress, wheezes, rales, rhonchi, stridor Cardiovascular Exam: Present: regular rate, normal rhythm, normal heart sounds. Absent: systolic murmur, diastolic murmur, rubs, gallop, clicks GI/Abdominal exam: Present: soft, normal bowel sounds. Absent: distended, tenderness, guarding, rebound, rigid Extremities exam: Present: normal inspection, full ROM, normal capillary refill. Absent: tenderness, pedal edema, joint swelling, calf tenderness Back exam: Present: normal inspection Neurological exam: Present: alert, oriented X3, CN II-XII intact Course Vital Signs 03/01/24 03/01/24 03/01/24 13:18 16:09 16:40 Temperature 98.1 F Pulse Rate 90 69 Respiratory 18 16 16 Rate Blood Pressure 166/99 148/79 O2 Sat by Pulse 99 99 Oximetry Medical Decision Making - Medical Decision Making Was pt. sent in by a medical professional or institution (SEDRICK Cheema, [facility], urgent care, hospital, or residential...) When possible be specific @ -No Did you speak to anyone other than the patient for history (EMS, parent, family, police, friend...)? What history was obtained from this source @ -No Did you review nursing and triage notes (agree or disagree)? Why? @ -I reviewed and agree with nursing and triage notes Were old charts reviewed (outside hosp., previous admission, EMS record, old EKG, old radiological studies, urgent care reports/EKG's, residential records)? Report findings @ -No old charts were reviewed Differential Diagnosis (chest pain, altered mental status, abdominal pain women, abdominal pain men, vaginal bleeding, weakness, fever, dyspnea, syncope, headache, dizziness, GI bleed, back pain, seizure, CVA, palpatations, mental health, musculoskeletal)? @ -Differential Headache: Migraine, tension, cluster, carbon monoxide, central venous thrombosis, pension karma temporal arteritis, acute closure glaucoma, intercranial hemorrhage, mastoiditis, sinusitis, head injury, this is not meant to be an all-inclusive list. EKG interpreted by me (3pts min.). @ -None X-rays interpreted by me (1pt min.). @ -None done CT interpreted by me (1pt min.). @ -CT of the brain without contrast no significant abnormality noted with no acute bleed or mass effect. U/S interpreted by me (1pt. min.). @ -None done What testing was considered but not performed or refused? (CT, X-rays, U/S, labs)? Why? @ -None What meds were considered but not given or refused? Why? @ -None Did you discuss the management of the patient with other professionals (professionals i.e. SEDRICK Cheema, LUMBER CHECKER, lab, RT, psych nurse, social group worker, rat exterminator, teacher, credit officer, transplant case manager)? Give summary @ -No Was smoking cessation discussed for >3mins.? @ -No Was critical care preformed (if so, how long)? @ -No Were there social determinants of health that impacted care today? How? (Homelessness, low income, unemployed, alcoholism, drug addiction, transportation, low edu. Level, literacy, decrease access to med. care, detention, rehab)? @ -No Was there de-escalation of care discussed even if they declined (Discuss DNR or withdrawal of care, Hospice)? DNR status @ -No What co-morbidities impacted this encounter? (DM, HTN, Smoking, COPD, CAD, Cancer, CVA, ARF, Chemo, Hep., AIDS, mental health diagnosis, sleep apnea, morbid obesity)? @ -None Was patient admitted / discharged? Hospital course, mention meds given and route, prescriptions, significant lab abnormalities, going to OR and other pertinent info. @ - 48-year-old female with dizziness and headache. On initial evaluation patient is resting comfortably and is stating that she has light sensitivity. Complete neurological examination with no acute findings. There are no signs of nystagmus and vitals are stable. Patient is symptomatically treated pending labs and CT imaging. Patient is in agreement with this plan. CT imaging neg ative for acute process. CBC, CMP unremarkable, troponin less than 0.012. On reevaluation, patient states that headache has improved and she is no longer experiencing symptoms of dizziness. Discussed with patient's that there has been no rule out of acute processes at this time and there is minimal clinical concern for further emergent pathology and further testing and imaging is deferred. Recommend that patient follows up outpatient with her primary care provider for further evaluation of migraines. All questions answered at bedside and strict return parameters discussed with the patient she is verbalized understanding. Case discussed with Dr. Miranda. Undiagnosed new problem with uncertain prognosis? @ -No Drug Therapy requiring intensive monitoring for toxicity (Heparin, Nitro, Insulin, Cardizem)? @ -No Were any procedures done? @ -No Diagnosis/symptom? @ -headache, dizziness Acute, or Chronic, or Acute on Chronic? @ -Acute Uncomplicated (without systemic symptoms) or Complicated (systemic symptoms)? @ -Uncomplicated Side effects of treatment? @ -No Exacerbation, Progression, or Severe Exacerbation? @ -No Poses a threat to life or bodily function? How? (Chest pain, [place], [place], pneumonia, PE, COPD, DKA, ARF, appy, cholecystitis, CVA, Diverticulitis, Homicidal, Suic idal, threat to staff... and all critical care pts) @ -No - Lab Data Result diagrams: 03/01/24 15:37 03/01/24 15:37 Lab Results 03/01/24 03/01/24 03/01/24 Range/Units 15:37 15:37 15:37 WBC 11.3 H (3.8-10.6) k/uL RBC 4.98 (3.80-5.40) m/uL Hgb 16.1 H (11.4-16.0) gm/dL Hct 49.5 H (34.0-46.0) % MCV 99.3 (80.0-100.0) fL MCH 32.4 (25.0-35.0) pg MCHC 32.6 (31.0-37.0) g/dL RDW 13.3 (11.5-15.5) % Plt Count 278 (150-450) k/uL MPV 6.9 Neutrophils % 67 % Lymphocytes % 27 % Monocytes % 3 % Eosinophils % 1 % Basophils % 0 % Neutrophils # 7.6 (1.3-7.7) k/uL Lymphocytes # 3.1 (1.0-4.8) k/uL Monocytes # 0.4 (0-1.0) k/uL Eosinophils # 0.1 (0-0.7) k/uL Basophils # 0.0 (0-0.2) k/uL Sodium 135 L (137-145) mmol/L Potassium 4.5 (3.5-5.1) mmol/L Chloride 105 (98-107) mmol/L Carbon Dioxide 24 (22-30) mmol/L Anion Gap 6 mmol/L BUN 11 (7-17) mg/dL Creatinine 0.74 (0.52-1.04) mg/dL Est GFR (CKD-EPI)AfAm >90 (>60 ml/min/1.73 sqM) Est GFR (CKD-EPI)NonAf >90 (>60 ml/min/1.73 sqM) Glucose 85 (74-99) mg/dL Calcium 9.8 (8.4-10.2) mg/dL Magnesium 2.2 (1.6-2.3) mg/dL Total Bilirubin 0.6 (0.2-1.3) mg/dL AST 19 (14-36) U/L ALT 14 (4-34) U/L Alkaline Phosphatase 113 (38-126) U/L Troponin I <0.012 (0.000-0.034) ng/mL Total Protein 7.5 (6.3-8.2) g/dL Albumin 4.4 (3.5-5.0) g/dL Disposition Clinical Impression: Migraine headache, Dizziness Disposition: HOME SELF-CARE Condition: Good Instructions (If sedation given, give patient instructions): Migraine Headache (ED), Dizziness (ED) Additional Instructions: Return to the emergency department for any new or worsening symptoms. Recommend a follow-up with your primary care provider this week for further evaluation. Continue Tylenol Motrin at home as needed for symptomatic relief. Is patient prescribed a controlled substance at d/c from ED?: No Referrals: Cem Espino MD [Primary Care Provider] - 1-2 days Time of Disposition: 16:38
[2024-03-01] MEDS: SODIUM CHLORIDE 0.9% 1,000 ML IV STA (15:31)
[2024-03-01] MEDS: MECLIZINE 12.5 MG TAB PO STA (15:32)
[2024-03-01] MEDS: KETOROLAC 15 MG/ML 1 ML VIAL IVP STA (15:32)
[2024-03-01 15:56] LABS: ALT 14 U/L (4-34); AST 19 U/L (14-36); African American GFR (CKD) >90 (>60 ml/min/1.73 sqM); Albumin 4.4 g/dL (3.5-5.0); Alkaline Phosphatase 113 U/L (38-126); Anion Gap 6 mmol/L; Blood Urea Nitrogen 11 mg/dL (7-17); Calcium 9.8 mg/dL (8.4-10.2); Carbon Dioxide 24 mmol/L (22-30); Chloride 105 mmol/L (98-107); Glucose 85 mg/dL (74-99); Magnesium 2.2 mg/dL (1.6-2.3); Non-African American GFR(CKD) >90 (>60 ml/min/1.73 sqM); Potassium 4.5 mmol/L (3.5-5.1); Sodium 135 mmol/L (137-145); Total Bilirubin 0.6 mg/dL (0.2-1.3); Total Protein 7.5 g/dL (6.3-8.2)
--- NOTE | 2024-03-01 16:02 | CT ---
EXAMINATION TYPE: CT brain wo con DATE OF EXAM: 03/01/2024 COMPARISON: None HISTORY: Migrane and dizziness x [address] DLP: 111.4 mGycm Automated exposure control for dose reduction was used. Findings: The ventricles, basal cisterns and sulci over the convexities are within normal limits and there is n o mass effect or shift of midline structures. No abnormal density is seen throughout the brain parenchyma and there is no acute intra or extra-axia l hemorrhage. The posterior fossa including the brainstem, fourth ventricle and cerebellar pontine angles appear no rmal. Intraorbital contents appear normal and symmetric. Visualized paranasal sinuses and mastoid air cells are well aerated. The calvarium is intact. IMPRESSION: No significant abnormality seen. There is no acute bleed or mass effect.
[2024-03-01] MEDS: ONDANSETRON 4 MG/2 ML VIAL IVP STA (16:09)
[2024-03-01 16:10] VITALS: BP 148/79; PULSE 69; RESP 16
[2024-03-01 16:15] LABS: Basophils % (A) 0 %; Eosinophils # (A) 0.1 k/uL (0-0.7); Eosinophils % (A) 1 %; HCT 49.5 % (34.0-46.0); HGB 16.1 gm/dL (11.4-16.0); Lymphocytes # (A) 3.1 k/uL (1.0-4.8); Lymphocytes % (A) 27 %; MCH 32.4 pg (25.0-35.0); MCHC 32.6 g/dL (31.0-37.0); MCV 99.3 fL (80.0-100.0); Mean Platelet Volume 6.9; Monocytes # (A) 0.4 k/uL (0-1.0); Monocytes % (A) 3 %; Neutrophils # (A) 7.6 k/uL (1.3-7.7); Neutrophils % (A) 67 %; Platelet Count 278 k/uL (150-450); RBC 4.98 m/uL (3.80-5.40); RDW 13.3 % (11.5-15.5); WBC 11.3 k/uL (3.8-10.6)
== END 2024-03-01 16:40 | disposition home or self-care (01) ==
LOC: EC 13:15
DX: G43.909 Migraine, unspecified, not intractable, without status migrainosus (principal); F17.200 Nicotine dependence, unspecified, uncomplicated; Z88.8 Allergy status to other drugs, medicaments and biological substances; Z88.5 Allergy status to narcotic agent
CPT/HCPCS: 36415; 70450; 80053; 83735; 84484; 85025; 96361; 96374; 96375; 99284

== ENCOUNTER 2024-06-19 14:12 | Emergency (ER) | payer OTHER ==
--- NOTE | 2024-06-19 15:51 | ED ---
URI HPI - General Source: patient, RN notes reviewed Mode of arrival: ambulatory Limitations: no limitations - History of Present Illness MD Complaint: fever, cough, sore throat, nasal congestion Onset/Timin -: days(s) <Dwaine Beach - Last Filed: 06/19/24 15:50> <Samuel Mcgregor - Last Filed: 06/20/24 22:49> - General Chief Complaint: Upper Respiratory Infection Stated Complaint: Congestion Time Seen by Provider: 06/19/24 14:28 - History of Present Illness Initial Comments: Quick note: This is a 48-year-old female with history of asthma and COPD presenting with cough and congestion x 5 days. Patient endorses productive cough, sore throat and migraine like head pain. Also endorses chills with fatigue. Endorses entirety of family being sick. Endorses use of Tylenol/Motrin, Synex Mucinex with minimal relief. (Dwaine Beach) 48-year-old female presenting with chief complaint of cough and congestion. Symptoms have been ongoing for the last 5 days. States that her cough is productive. She also admits to sore throat and headache. She is having chills, body aches, and fatigue. She has had recent sick contacts as well. She has been trying [id number] medication with little relief. No chest pain or difficulty breathing. No abdominal pain nausea, vomiting, or diarrhea. (Samuel Mcgregor) - Related Data Home Medications Medication Instructions Recorded Confirmed Atorvastatin [Lipitor] 40 mg PO DAILY 01/12/20 10/09/23 Pantoprazole Sodium [Protonix] 40 mg PO BID 01/12/20 10/09/23 Montelukast Sodium [Singulair] 10 mg PO DAILY 07/09/21 10/09/23 Albuterol Inhaler [Ventolin Hfa 1 puff INHALATION RT-TID PRN 08/22/21 10/09/23 Inhaler] Albuterol Nebulized [Ventolin 1.25 mg INHALATION Q6H 08/22/21 10/09/23 Nebulized (Accuneb)] Fluticasone Propion/Salmeterol 1 inhalation PO BID 08/22/21 10/09/23 [Advair 100-50 Diskus] Gabapentin 300 mg PO TID 12/04/22 10/09/23 Previous Rx's Medication Instructions Recorded Albuterol Nebulized [Ventolin 2.5 mg INHALATION Q4H PRN 8 Days 06/19/24 Nebulized] #150 ml predniSONE [Deltasone] 60 mg PO DAILY 5 Days #15 tab 06/19/24 Allergies Allergy/AdvReac Type Severity Reaction Status Date / Time diphenhydramine Allergy Chest Verified 06/19/24 14:49 [From Benadryl] Pain, anaphylaxis codeine AdvReac migraines Verified 06/19/24 14:49 tramadol HCl [From Ultram] AdvReac migraines Verified 06/19/24 14:49 lactated ringers Allergy Anaphylaxis Uncoded 06/19/24 14:49 Review of Systems ROS Other: All systems not noted in ROS Statement are negative. <Dwaine Beach - Last Filed: 06/19/24 15:50> ROS Other: All systems not noted in ROS Statement are negative. <Samuel Mcgregor - Last Filed: 06/20/24 22:49> ROS Statement: Those systems with pertinent positive or pertinent negative responses have been documented in the HPI. Past Medical History Past Medical History: Asthma, COPD, GERD/Reflux, Hyperlipidemia, Pneumonia, Skin Disorder Additional Past Medical History / Comment(s): Psoriasis History of Any Multi-Drug Resistant Organisms: None Reported Past Surgical History: Appendectomy, Breast Surgery, Section, Hysterectomy Additional Past Surgical History / Comment(s): MOLES REMOVED BY EYE WITH ANESTHESIA. RT BREAST BX-08/27/21 Past Anesthesia/Blood Transfusion Reactions: Previous Problems w/ Anesthesia, Family History of Problems w/ Anesthesia Additional Past Anesthesia/Blood Transfusion Reaction / Comment(s): low b/p during one surgery. Daughter = low oxygen and bronchial spasms. Past Psychological History: No Psychological Hx Reported Smoking Status: Current every day smoker Past Alcohol Use History: Occasional Past Drug Use History: None Reported - Past Family History Mother Family Medical History: Hypertension Additional Family Medical History / Comment(s): brain aneurysm Father Additional Family Medical History / Comment(s): suicide <Dwaine Beach - Last Filed: 06/19/24 15:50> General Exam Limitations: no limitations <Dwaine Beach - Last Filed: 06/19/24 15:50> General appearance: alert, in no apparent distress Head exam: Present: atraumatic, normocephalic, normal inspection Eye exam: Present: normal appearance, EOMI ENT exam: Present: normal exam, normal oropharynx, mucous membranes moist, TM's normal bilaterally Neck exam: Present: normal inspection. Absent: meningismus Respiratory exam: Present: wheezes. Absent: respiratory distress, rales, rhonchi, stridor Cardiovascular Exam: Present: regular rate, normal rhythm, normal heart sounds. Absent: systolic murmur, diastolic murmur, rubs, gallop, clicks Neurological exam: Present: alert, oriented X3 Psychiatric exam: Present: normal affect, normal mood Skin exam: Present: warm, dry <Samuel Mcgregor - Last Filed: 06/20/24 22:49> - General Exam Comments Initial Comments: Visual Physical Exam Vital signs reviewed General: Well-appearing, nontoxic, no acute distress. Head: Normocephalic, atraumatic Eyes: PERRLA, EOMI ENT: Airway patent Chest: Nonlabored breathing Skin: No visual rash, normal skin tone Neuro: Alert and oriented 3 Musculoskeletal: No gross abnormalities (Dwaine Beach) Course Vital Signs 06/19/24 06/19/24 06/19/24 14:47 18:53 18:54 Temperature 98.6 F 98.7 F Pulse Rate 89 76 74 Respiratory 18 19 Rate Blood Pressure 174/80 141/86 O2 Sat by Pulse 97 98 Oximetry 06/19/24 19:03 Temperature Pulse Rate 80 Respiratory Rate Blood Pressure O2 Sat by Pulse Oximetry Medical Decision Making <Dwaine Beach - Last Filed: 06/19/24 15:50> <Samuel Mcgregor - Last Filed: 06/20/24 22:49> - Medical Decision Making I completed the quick note portion of this chart signed STACY Esquivel (Dwaine Beach) Was pt. sent in by a medical professional or institution (SEDRICK Cheema, TITLE INVESTIGATOR, urgent care, hospital, or fpc...) When possible be specific @ -No Did you speak to anyone other than the patient for history (EMS, parent, family, police, friend...)? What history was obtained from this source @ -No Did you review nursing and triage notes (agree or disagree)? Why? @ -I reviewed and agree with nursing and triage notes Were old charts reviewed (outside hosp., previous admission, EMS record, old EKG, old radiological studies, urgent care reports/EKG's, fpc records)? Report findings @ -No old charts were reviewed Differential Diagnosis (chest pain, altered mental status, abdominal pain women, abdominal pain men, vaginal bleeding, weakness, fever, dyspnea, syncope, headache, dizziness, GI bleed, back pain, seizure, CVA, palpatations, mental health, musculoskeletal)? @ -Differential includes influenza, RSV, COVID, group A strep, pneumonia, bronchitis, this is not an all-inclusive list EKG interpreted by me (3pts min.). @ -As above X-rays interpreted by me (1pt min.). @ -Chest x-ray shows no acute process CT interpreted by me (1pt min.). @ -None done U/S interpreted by me (1pt. min.). @ -None done What testing was considered but not performed or refused? (CT, X-rays, U/S, labs)? Why? @ -None What meds were considered but not given or refused? Why? @ -None Did you discuss the management of the patient with other professionals (antonio brown i.e. , PA, TITLE INVESTIGATOR, lab, RT, psych nurse, social work job titles, line inspector, teacher, customs patrol officer, pillowcase sewer)? Give summary @ -No Was smoking cessation discussed for >3mins.? @ -No Was critical care preformed (if so, how long)? @ -No Were there social determinants of health that impacted care today? How? (Homelessness, low income, unemployed, alcoholism, drug addiction, transportation, low edu. Level, literacy, decrease access to med. care, [facility], rehab)? @ -No Was there de-escalation of care discussed even if they declined (Discuss DNR or withdrawal of care, Hospice)? DNR status @ -No What co-morbidities impacted this encounter? (DM, HTN, Smoking, COPD, CAD, Cancer, CVA, ARF, Chemo, Hep., AIDS, mental health diagnosis, sleep apnea, morbid obesity)? @ -None Was patient admitted / discharged? Hospital course, mention meds given and route, prescriptions, significant lab abnormalities, going to OR and other pertinent info. @ -48-year-old female presenting with chief complaint of cough, congestion, sore throat, headache, body aches, fatigue. Workup is initiated by triage. Patient is negative for influenza, RSV, COVID, group A strep. Chest x-ray shows no acute process. I later examined the patient and she does have mild wheezes on auscultation. HEENT exam is normal. Patient does have history of asthma. She is treated with Decadron and a DuoNeb. She is also given Toradol for headache. She is provided with refills of nebulized albuterol for home. Follow-up with PCP. Report back to ER with any new or worsening symptoms. Discussed return parameters and answered all questions. Patient conveyed verbal understanding and agreed to the plan. I discussed this case in detail with my attending Dr. Mccoy Undiagnosed new problem with uncertain prognosis? @ -No Drug Therapy requiring intensive monitoring for toxicity (Heparin, Nitro, Insulin, Cardizem)? @ -No Were any procedures done? @ -No Diagnosis/symptom? @ -Bronchitis Acute, or Chronic, or Acute on Chronic? @ -Acute Uncomplicated (without systemic symptoms) or Complicated (systemic symptoms)? @ -uncomplicated Side effects of treatment? @ -No Exacerbation, Progression, or Severe Exacerbation? @ -No Poses a threat to life or bodily function? How? (Chest pain, [place], [place], pneumonia, PE, COPD, DKA, ARF, appy, cholecystitis, CVA, Diverticulitis, Homicidal, Suicidal, threat to staff... and all critical care pts) @ -Low likelihood (Samuel Mcgregor) - Lab Data Lab Results 06/19/24 06/19/24 Range/Units 14:45 16:16 Influenza Type A (PCR) Not Detected (Not Detectd) Influenza Type B (PCR) Not Detected (Not Detectd) RSV (PCR) Not Detected (Not Detectd) SARS-CoV-2 (PCR) Not Detected (Not Detectd) Group A Strep (PCR) NOT DETECTED (Not Detectd) Disposition <Dwaine Beach - Last Filed: 06/19/24 15:50> Is patient prescribed a controlled substance at d/c from ED?: No Time of Disposition: 18:15 <Samuel Mcgregor - Last Filed: 06/20/24 22:49> Clinical Impression: Bronchitis Disposition: HOME SELF-CARE Condition: Good Instructions (If sedation given, give patient instructions): Acute Bronchitis (ED) Additional Instructions: Follow-up with PCP. Report back to ER with any new or worsening symptoms. You may use [id number] Afrin nasal spray for your congestion, do not use for more than 3 days or you may experience severe rebound congestion. Take Motrin and Tylenol as needed for pain control. Take medication as prescribed. Prescriptions: predniSONE [Deltasone] 60 mg PO DAILY 5 Days #15 tab Albuterol Nebulized [Ventolin Nebulized] 2.5 mg INHALATION Q4H PRN 8 Days #150 ml PRN Reason: Shortness Of Breath Referrals: Cem Espino MD [Primary Care Provider] - 1-2 days
--- NOTE | 2024-06-19 16:31 | XR ---
EXAMINATION TYPE: XR chest 2V DATE OF EXAM: 06/19/2024 4:08 PM COMPARISON: Chest radiographs from 06/27/2022 CLINICAL INDICATION: Female, 48 years old with history of Cough; [facility] TECHNIQUE: XR chest 2V Frontal and lateral views of the chest. FINDINGS: Lungs/Pleura: There is no evidence of pleural effusion, focal consolidation, or pneumothorax. Pulmonary vascularity: Unremarkable. Heart/mediastinum: Cardiomediastinal silhouette is unremarkable. Musculoskeletal: No acute osseous pathology. IMPRESSION: No acute cardiopulmonary disease/process. [facility], , 06/19/2024 4:29 PM
[2024-06-19] MEDS: KETOROLAC 15 MG/ML 1 ML VIAL IM STA (18:48)
[2024-06-19] MEDS: DEXAMETHASONE SOD PHOSPHATE 10 MG/ML 1 ML VIAL IM STA (18:48)
[2024-06-19] MEDS: IPRATROPIUM-ALBUTEROL 3 ML NEB INHALATION STA (18:52)
[2024-06-19 18:56] VITALS: BP 141/86; RESP 19; TEMP 98.7
[2024-06-19 19:04] VITALS: PULSE 80
== END 2024-06-19 19:17 | disposition home or self-care (01) ==
LOC: EC 14:12
DX: J40 Bronchitis, not specified as acute or chronic (principal); J44.89 Other specified chronic obstructive pulmonary disease; F17.200 Nicotine dependence, unspecified, uncomplicated; Z91.011 Allergy to milk products; Z88.5 Allergy status to narcotic agent; Z88.6 Allergy status to analgesic agent; Z88.8 Allergy status to other drugs, medicaments and biological substances
CPT/HCPCS: 94640; 87651; 87636; 71046; 99284; 96372; J1100; J1885

== ENCOUNTER 2024-08-13 15:32 | Emergency (ER) | payer OTHER ==
--- NOTE | 2024-08-13 16:35 | ED ---
Fall HPI - General Chief Complaint: Fall Stated Complaint: [facility]-rt arm injury Time Seen by Provider: 08/13/24 15:46 Source: patient, RN notes reviewed Mode of arrival: ambulatory - History of Present Illness Initial Comments: This is a 49-year-old female presenting for right arm pain (04/01) following a slip and fall at work at 10 AM this morning. 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 Denies striking head, loss of consciousness, headache, neck pain, back pain, other significant injuries. Denies use of blood thinners. 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 Fall Witnessed: yes, by bystander Place Fall Occurred: work Loss of Consciousness: none Prolonged Down Time?: no Symptoms Prior to Fall: none Location - Extremities: Right: Shoulder, Arm, Elbow, Forearm, Hand Severity scale (1-10): 10 Context: tripped/slipped Associated Symptoms: denies - Related Data Home Medications Medication Instructions Recorded Confirmed Atorvastatin [Lipitor] 40 mg PO DAILY 01/12/20 10/09/23 Pantoprazole Sodium [Protonix] 40 mg PO BID 01/12/20 10/09/23 Montelukast Sodium [Singulair] 10 mg PO DAILY 07/09/21 10/09/23 Albuterol Inhaler [Ventolin Hfa 1 puff INHALATION RT-TID PRN 08/22/21 10/09/23 Inhaler] Albuterol Nebulized [Ventolin 1.25 mg INHALATION Q6H 08/22/21 10/09/23 Nebulized (Accuneb)] Fluticasone Propion/Salmeterol 1 inhalation PO BID 08/22/21 10/09/23 [Advair 100-50 Diskus] Gabapentin 300 mg PO TID 12/04/22 10/09/23 Previous Rx's Medication Instructions Recorded Albuterol Nebulized [Ventolin 2.5 mg INHALATION Q4H PRN 8 Days 06/19/24 Nebulized] #150 ml predniSONE [Deltasone] 60 mg PO DAILY 5 Days #15 tab 06/19/24 Ketorolac [Toradol] 10 mg PO Q6HR PRN #30 tab 08/13/24 Allergies Allergy/AdvReac Type Severity Reaction Status Date / Time diphenhydramine Allergy Chest Verified 08/13/24 15:57 [From Benadryl] Pain, anaphylaxis codeine AdvReac migraines Verified 08/13/24 15:57 tramadol HCl [From Ultram] AdvReac migraines Verified 08/13/24 15:57 lactated ringers Allergy Anaphylaxis Uncoded 08/13/24 15:57 Review of Systems ROS Statement: Those systems with pertinent positive or pertinent negative responses have been documented in the HPI. ROS Other: All systems not noted in ROS Statement are negative. Past Medical History Past Medical History: Asthma, COPD, GERD/Reflux, Hyperlipidemia, Pneumonia, Skin Disorder Additional Past Medical History / Comment(s): Psoriasis History of Any Multi-Drug Resistant Organisms: None Reported Past Surgical History: Appendectomy, Breast Surgery, Section, Hysterectomy Additional Past Surgical History / Comment(s): MOLES REMOVED BY EYE WITH ANESTHESIA. RT BREAST BX-08/27/21 Past Anesthesia/Blood Transfusion Reactions: Previous Problems w/ Anesthesia, Family History of Problems w/ Anesthesia Additional Past Anesthesia/Blood Transfusion Reaction / Comment(s): low b/p during one surgery. Daughter = low oxygen and bronchial spasms. Past Psychological History: No Psychological Hx Reported Smoking Status: Current every day smoker Past Alcohol Use History: Occasional Past Drug Use History: None Reported - Past Family History Mother Family Medical History: Hypertension Additional Family Medical History / Comment(s): brain aneurysm Father Additional Family Medical History / Comment(s): suicide General Exam Limitations: no limitations General appearance: alert, in distress Head exam: Present: atraumatic, normocephalic, normal inspection Eye exam: Present: normal appearance, PERRL, EOMI. Absent: scleral icterus, conjunctival injection, periorbital swelling ENT exam: Present: normal exam, mucous membranes moist Neck exam: Present: normal inspection. Absent: tenderness, meningismus, lymphadenopathy Respiratory exam: Present: normal lung sounds bilaterally. Absent: respiratory distress, wheezes, rales, rhonchi, stridor Cardiovascular Exam: Present: regular rate, normal rhythm, normal heart sounds. Absent: systolic murmur, diastolic murmur, rubs, gallop, clicks GI/Abdominal exam: Present: soft, normal bowel sounds. Absent: distended, tenderness, guarding, rebound, rigid Extremities exam: Present: tenderness (Diffuse RUE, scapula, clavicle tenderness without obvious crepitus, deformity or open wound), normal capillary refill, other (Distal neurovascular and finger motor function intact. Patient unable to otherwise move any part of RUE without eliciting extreme pain). Absent: full ROM, pedal edema, joint swelling, calf tenderness Back exam: Present: tenderness (Positive right scapula tenderness without obvious crepitus or deformity). Absent: vertebral tenderness Neurological exam: Present: alert, oriented X3, CN II-XII intact Psychiatric exam: Present: normal affect, normal mood Skin exam: Present: warm, dry, intact, normal color. Absent: rash Course Vital Signs 08/13/24 08/13/24 15:54 19:00 Temperature 98.0 F 98.7 F Pulse Rate 79 88 Respiratory 17 16 Rate Blood Pressure 154/81 145/78 O2 Sat by Pulse 97 98 Oximetry Procedures - Orthopedic Splinting/Casting Injury #1 Side: right Upper Extremity Injury Location: elbow Upper Extremity Immobilizer: sling/shoulder immobilizer, posterior splint Medical Decision Making - Medical Decision Making Was pt. sent in by a medical professional or institution (SEDRICK Cheema, EDUCATION GENERAL MANAGER, urgent care, hospital, or group home...) When possible be specific @ -No Did you speak to anyone other than the patient for history (EMS, parent, family, police, friend...)? What history was obtained from this source @ -No Did you review nursing and triage notes (agree or disagree)? Why? @ -I reviewed and agree with nursing and triage notes Were old charts reviewed (outside hosp., previous admission, EMS record, old EKG, old radiological studies, urgent care reports/EKG's, group home records)? Report findings @ -No old charts were reviewed Differential Diagnosis (chest pain, altered mental status, abdominal pain women, abdominal pain men, vaginal bleeding, weakness, fever, dyspnea, syncope, headache, dizziness, GI bleed, back pain, seizure, CVA, palpatations, mental health, musculoskeletal)? @ -Differential Musculoskeletal Muscular strain, contusion, ligament sprain, fracture, arthritis, septic arthritis, bursitis, cellulitis, muscle spasm, nerve compression, DVT, arterial occlusion, herpes zoster, electrolyte abnormality, tumor.... This is not meant to be in all inclusive list EKG interpreted by me (3pts min.). @ -Not done X-rays interpreted by me (1pt min.). @ -Right elbow x-ray shows indications of radial head fracture extending into articular surface with anterior/posterior fat pad elevation present. Remainder of right upper extremity x-rays are unremarkable. CT interpreted by me (1pt min.). @ -None done U/S interpreted by me (1pt. min.). @ -None done What testing was considered but not performed or refused? (CT, X-rays, U/S, labs)? Why? @ -None What meds were considered but not given or refused? Why? @ -Considered discharging with T3 starter pack but patient has codeine allergy. Did you discuss the management of the patient with other professionals (professionals i.e. , PA, EDUCATION GENERAL MANAGER, lab, RT, psych nurse, social work faculty member, residential director, teacher, probation officer, bottle caser)? Give summary @ -No Was smoking cessation discussed for >3mins.? @ -No Was critical care preformed (if so, how long)? @ -No Were there social determinants of health that impacted care today? How? (Homelessness, low income, unemployed, alcoholism, drug addiction, transportation, low edu. Level, literacy, decrease access to med. care, halfway, rehab)? @ -No Was there de-escalation of care discussed even if they declined (Discuss DNR or withdrawal of care, Hospice)? DNR status @ -No What co-morbidities impacted this encounter? (DM, HTN, Smoking, COPD, CAD, Cancer, CVA, ARF, Chemo, Hep., AIDS, mental health diagnosis, sleep apnea, morbid obesity)? @ -None Was patient admitted / discharged? Hospital course, mention meds given and route, prescriptions, significant lab abnormalities, going to OR and other pertinent info. @ -Right elbow x-ray shows indications of radial head fracture extending into articular surface with anterior/posterior fat pad elevation present. Remainder of right upper extremity x-rays are unremarkable. Patient initially provided IV Toradol and Dilaudid with additional Toradol provided prior to application of a posterior slab splint and sling. Patient discharged with Motrin 600 starter pack and p.o. Toradol sent to patient's pharmacy. Advised follow-up with orthopedics for casting and definitive management of fracture. Discussed patient with Dr. Zuniga. Undiagnosed new problem with uncertain prognosis? @ -No Drug Therapy requiring intensive monitoring for toxicity (Heparin, Nitro, Insulin, Cardizem)? @ -No Were any procedures done? @ -No Diagnosis/symptom? @ -Radial head fracture Acute, or Chronic, or Acute on Chronic? @ -Acute Uncomplicated (without systemic symptoms) or Complicated (systemic symptoms)? @ -Uncomplicated Side effects of treatment? @ -No Exacerbation, Progression, or Severe Exacerbation? @ -No Poses a threat to life or bodily function? How? (Chest pain, [place], [place], pneumonia, PE, COPD, DKA, ARF, appy, cholecystitis, CVA, Diverticulitis, Homicidal, Suici tomasz, threat to staff... and all critical care pts) @ -No Disposition Clinical Impression: Radial head fracture, closed Disposition: HOME SELF-CARE Condition: Good Instructions (If sedation given, give patient instructions): Elbow Fracture (ED) Additional Instructions: Follow-up with orthopedics for definitive casting Prescriptions: Ketorolac [Toradol] 10 mg PO Q6HR PRN #30 tab PRN Reason: Pain Is patient prescribed a controlled substance at d/c from ED?: No Referrals: Cem Espino MD [Primary Care Provider] - 1-2 days Time of Disposition: 18:32
[2024-08-13] MEDS: KETOROLAC 15 MG/ML 1 ML VIAL IVP STA ×2 (16:39→18:46)
[2024-08-13] MEDS: HYDROmorphone 1 MG/ML 1 ML SYRINGE IVP STA (16:40)
--- NOTE | 2024-08-13 17:45 | XR ---
EXAMINATION TYPE: XR wrist complete RT DATE OF EXAM: 08/13/2024 5:26 PM COMPARISON: None. CLINICAL INDICATION: Female, 49 years old with history of Fall with diffuse RUE pain, pain TECHNIQUE: 4 view(s) obtained. FINDINGS: No acute fracture or dislocation evident. Joint spaces are preserved. Soft tissues are normal. If there is pain at the anatomic snuffbox, nuclear medicine bone scan could be performed. Follow-up M RI can be performed if evaluation of the soft tissues of the of benefit. IMPRESSION: 1. No acute osseous abnormality right wrist [facility], , 08/13/2024 5:42 PM
--- NOTE | 2024-08-13 17:45 | XR ---
EXAMINATION TYPE: XR hand complete RT DATE OF EXAM: 08/13/2024 5:31 PM COMPARISON: None. CLINICAL INDICATION: Female, 49 years old with history of Fall with diffuse RUE pain, pain TECHNIQUE: 3 view(s) obtained. FINDINGS: No acute fracture or dislocation evident. Joint spaces are preserved. Soft tissues are normal. Follow up exams can be performed 7-10 days from acute trauma for continued pain. IMPRESSION: 1. No acute osseous abnormality three-view right hand [facility], , 08/13/2024 5:43 PM
--- NOTE | 2024-08-13 17:52 | XR ---
EXAMINATION TYPE: XR shoulder complete RT DATE OF EXAM: 08/13/2024 5:35 PM COMPARISON: None. CLINICAL INDICATION: Female, 49 years old with history of Fall with diffuse RUE pain, Pain TECHNIQUE: XR shoulder complete RT view(s) obtained. FINDINGS: The humeral head articulates with the glenoid. The acromio-clavicular junction is normal. No acute fractures or dislocations are evident. A follow up study can be performed 7-10 days from acute trauma for continued pain. MRI can be perfor med if soft tissue evaluation would be of benefit. IMPRESSION: 1. No acute osseous right shoulder abnormality. [facility], , 08/13/2024 5:50 PM
--- NOTE | 2024-08-13 17:53 | XR ---
EXAMINATION TYPE: XR humerus RT DATE OF EXAM: 08/13/2024 5:35 PM COMPARISON: None. CLINICAL INDICATION: Female, 49 years old with history of Fall with diffuse RUE pain, pain TECHNIQUE: 2 view(s) obtained. FINDINGS: Humeral head articulates with the glenoid. No humeral fractures evident. Follow up exams can be performed 7-10 days from acute trauma for continued pain IMPRESSION: 1. No acute osseous abnormality right humerus [facility], , 08/13/2024 5:50 PM
--- NOTE | 2024-08-13 17:54 | XR ---
EXAMINATION TYPE: XR forearm RT DATE OF EXAM: 08/13/2024 5:35 PM COMPARISON: None. CLINICAL INDICATION: Female, 49 years old with history of Fall with diffuse RUE pain, pain TECHNIQUE: 2 view(s) obtained. FINDINGS: There is elevation of the anterior fat pad. There is a lucency within the radial head compatible with a fracture. Follow up exams can be performed for unexplained continued pain. IMPRESSION: 1. Fracture of the radial head [facility], , 08/13/2024 5:52 PM
--- NOTE | 2024-08-13 17:58 | XR ---
EXAMINATION TYPE: XR elbow complete RT DATE OF EXAM: 08/13/2024 5:31 PM COMPARISON: None. CLINICAL INDICATION: Female, 49 years old with history of Fall with diffuse RUE pain, pain TECHNIQUE: 4 view(s) obtained. FINDINGS: Radius aligns normally with the humerus. There is a lucency within the right radial head. This extend s to the articular surface. Anterior and posterior fat pad elevation is present. IMPRESSION: 1. Findings compatible with acute radial head fracture [facility], , 08/13/2024 5:55 PM
[2024-08-13] MEDS: IBUPROFEN 600 MG STARTER PACK 4 TAB BTL PO STA (18:47)
[2024-08-13 19:00] VITALS: BP 145/78; PULSE 88; RESP 16; TEMP 98.7
== END 2024-08-13 19:12 | disposition home or self-care (01) ==
LOC: EC 15:32
DX: S52.123A Displaced fracture of head of unspecified radius, initial encounter for closed fracture (principal); F17.200 Nicotine dependence, unspecified, uncomplicated; Z88.8 Allergy status to other drugs, medicaments and biological substances; Z88.5 Allergy status to narcotic agent; W01.0XXA Fall on same level from slipping, tripping and stumbling without subsequent striking against object, initial encounter
CPT/HCPCS: 73030; 73060; 73080; 73090; 73110; 73130; 99283; 29105; 96374; 96375; 96376; J1171; J1885

== ENCOUNTER → 2024-08-30 | Outpatient (CLI) | payer OTHER ==
--- NOTE | 2024-09-02 13:10 | MM ---
Reason for Exam: Screening (asymptomatic). Last screening mammogram was performed 12 month(s) ago. Patient History: Menarche at age 15. First Full-Term at age 17. Hysterectomy at age 22. 08/27/2021, Benign Core Biopsy on the right side. Risk Values: Venita 5 year model risk: 0.8%. NCI Lifetime model risk: 6.9%. Prior Study Comparison: 08/16/2022 Bilateral MG 3D screening mammo w/cad, [facility]. 11/29/2022 Right MG 3D diag mammo w/cad RT, [facility]. 08/26/2023 Bilateral MG 3D screening mammo w/cad, [facility]. Tissue Density: There are scattered areas of fibroglandular density. Findings: Analyzed By CAD. There is no suspicious group of microcalcifications or new suspicious mass in either breast. Overall Assessment: Benign, BI-RAD 2 Management: Screening Mammogram of both breasts in 1 year. . Patient should continue monthly self-breast exams. A clinical breast exam by your physician is recommended on an annual basis. This exam should not preclude additional follow-up of suspicious palpable abnormalities. Note on Venita scores and lifetime risk: 1. A Venita score greater than 3% is considered moderate risk. If this is the case, consider specialist referral to assess eligibility for a risk reducing agent. 2. If overall lifetime risk for the development of breast cancer is 20% or higher, the patient may qualify for future screening with alternating mammogram and breast MRI. [facility], , 08/30/2024 11:04 AM. Electronically signed and approved by: Christopher Mondragon M.D. Radiolog[facility]
== END | disposition home or self-care (01) ==
LOC: RADMAMWWP 10:52
PROVIDERS: ATTEND Surgery
DX: Z12.31 Encounter for screening mammogram for malignant neoplasm of breast (principal); R92.323 Mammographic fibroglandular density, bilateral breasts
CPT/HCPCS: 77063; 77067

== ENCOUNTER → 2024-09-02 | Outpatient (CLI) | payer OTHER ==
[2024-09-02 10:55] VITALS: BP 125/79; PULSE 74; RESP 17; TEMP 98.2
--- NOTE | 2024-09-02 11:55 | P.PN ---
Subjective Progress Note Date: 09/02/24 Principal diagnosis: fibrocystic breast disease 09-02-24 Principal diagnosis: fibrocystic breast disease/fibroadenoma Mica is a 49 -year-old white female who has a biopsy-proven right breast fibroadenoma. This is not symptomatic and is not palpable. It was diagnosed on 08-27-2021. She underwent a bilateral screening mammogram on 08-30-24 which was benign BI-RADS 2. This was personally reviewed and discussed with Dr. Krueger from radiology. She is not concerned about any new lumps masses or nodules of concern in either breast. She is not complaining of any pain in her breast on today's examination. She fell and fractured her right elbow and risk. Caffeine: 8 cups/day nicotine: 1 PPD chocolate: occasional BCP: used prior to hysterectomy at 22 hormones: none Caffeine: multiple cups of coffee/day nicotine: 1 PPD chocolate: rare Family History; maternal grandfather: Colon cancer Hormonal history: Menarche:14 , breast fed: yes, age at first : 17 hysterectomy at 22, left ovaries endometriosis; she has had testing and is menopausal now control pills: 5 years Surgical History: Hysterectomy secondary to endometriosis Appendectomy emergency hysterectomy left foot surgery Medical History: Psoriasis Social history: Nicotine: One pack per day Alcohol:occasional drugs; none - Constitutional Constitutional: Reports sweats - EENT Eyes: denies blurred vision, denies pain Ears: bilateral: decreased hearing, tinnitus Ears, nose, mouth and throat: Denies headache, Denies sore throat - Breasts Breasts: bilateral: as per HPI - Cardiovascular Cardiovascular: Denies chest pain, Denies shortness of breath - Respiratory Comment: asthma - Gastrointestinal Comment: GERD, questionable Hill's - Genitourinary (Female) Genitourinary: Denies dysuria, Denies hematuria - Menstruation Menstruation: Reports as per HPI - Musculoskeletal Musculoskeletal: Denies myalgias - Integumentary Integumentary: Reports as per HPI - Neurological Neurological: Denies numbness, Denies weakness - Psychiatric Psychiatric: Denies anxiety, Denies depression - Endocrine Endocrine: Reports weight change, Denies fatigue - Hematologic/Lymphatic Comment: none - Allergic/Immunologic Allergic/Immunologic: Reports as per HPI Past Medical History Past Medical History: Asthma, COPD, GERD/Reflux, Hyperlipidemia, Pneumonia, Skin Disorder Additional Past Medical History / Comment(s): Psoriasis; CHRONIC BRONCHITIS., receiving steroid injections for plantar faciitis. History of Any Multi-Drug Resistant Organisms: None Reported Past Surgical History: Appendectomy, Section, Hysterectomy Additional Past Surgical History / Comment(s): MOLES REMOVED BY EYE WITH ANESTHESIA Past Anesthesia/Blood Transfusion Reactions: No Reported Reaction, Family History of Problems w/ Anesthesia Additional Past Anesthesia/Blood Transfusion Reaction / Comment(s): low b/p during one surgery. Daughter = low oxygen and bronchial spasms. Past Psychological History: No Psychological Hx Reported Smoking Status: Current every day smoker Past Alcohol Use History: Occasional Additional Past Alcohol Use History / Comment(s): start smoking 1990-06 ppd Past Drug Use History: None Reported - Past Family History Mother Family Medical History: Hypertension Additional Family Medical History / Comment(s): brain aneurysm Father Additional Family Medical History / Comment(s): suicide Medications and Allergies Home Medications Medication Instructions Recorded Confirmed Type Atorvastatin [Lipitor] 40 mg PO DAILY 01/12/20 08/24/21 History Pantoprazole Sodium [Protonix] 40 mg PO BID 01/12/20 08/24/21 History Adalimumab [Humira(Cf) Pen] 40 mg SQ Q14D 07/09/21 08/24/21 History Montelukast Sodium [Singulair] 10 mg PO DAILY 07/09/21 08/24/21 History Albuterol Inhaler [Ventolin Hfa 1 puff INHALATION RT-TID PRN 08/22/21 08/24/21 History Inhaler] Albuterol Nebulized [Ventolin 1.25 mg INHALATION Q6H 08/22/21 08/24/21 History Nebulized] Fluticasone/Salmeterol [Advair 1 inhalation PO BID 08/22/21 08/24/21 History 100-50 Diskus] Nicotine 21Mg/24Hr Patch [Habitrol] 21 mg SL DAILY 08/24/21 08/24/21 History Allergies Allergy/AdvReac Type Severity Reaction Status Date / Time diphenhydramine Allergy Chest Verified 08/24/21 12:08 [From Benadryl] Pain, anaphylaxis codeine AdvReac migraines Verified 08/24/21 12:08 tramadol HCl [From Ultram] AdvReac migraines Verified 08/24/21 12:08 lactated ringers Allergy Anaphylaxis Uncoded 08/24/21 12:08 Objective - Vital Signs Vital signs: Vital Signs Temp 98.2 F 09/02/24 10:52 Pulse 74 09/02/24 10:52 Resp 17 09/02/24 10:52 BP 125/79 09/02/24 10:52 Pulse Ox 97 09/02/24 10:52 FiO2 Intake & Output 09/01/24 09/02/24 09/02/24 18:59 06:59 18:59 Weight 77.111 kg - Constitutional General appearance: Present: cooperative - EENT Eyes: Present: EOMI ENT: Present: hearing grossly normal - Neck Neck: Present: normal ROM - Respiratory Respiratory: bilateral: CTA - Cardiovascular Rhythm: regular Heart sounds: normal: S1, S2 - Gastrointestinal General gastrointestinal: Present: soft - Integumentary Integumentary: Present: normal turgor - Musculoskeletal Musculoskeletal: Present: gait normal - Psychiatric Psychiatric: Present: A&O x's 3, appropriate affect, intact judgment & insight - Additional findings Additional findings: Breast Exam: BRA: 40C inspection: Bilateral grade 2 ptosis Palpation: Right breast: Multiple positional exam fibrocystic, no discrete dominant masses or nodules of concern Right axilla: No adenopathy of concern Left breast: Multiple positional exam no dominant masses or nodules of concern Left axilla: No adenopathy of concern Assessment and Plan Assessment: Impression: mastodynia improved Fibrocystic breast changes Plan: Bilateral mammogram in August 2025 with examination at that time life style modifications have been discussed with the patient with respect to the mastodynia, life stye all modifications would include stopping nicotine or caffeine intake Cc: Dr. Cem Espino
== END ==
LOC: WWCWWP 09:57
PROVIDERS: ATTEND Surgery
DX: N60.19 Diffuse cystic mastopathy of unspecified breast (principal); F17.210 Nicotine dependence, cigarettes, uncomplicated; Z88.1 Allergy status to other antibiotic agents; Z91.011 Allergy to milk products; Z88.5 Allergy status to narcotic agent